=== PATIENT | male | born 1950 | race Caucasian/White ===

== ENCOUNTER 2018-09-05 10:09 | Emergency (ER) | payer MEDICARE ==
[2018-09-05] MEDS ORDERED: Sodium Chloride 0.9% 10 ML Syringe FLUSH PRN (10:17)
[2018-09-05] MEDS ORDERED: Albuterol/Ipratropium 3.0-0.5 MG/3 ML Neb Soln NEB ONE (10:36)
--- NOTE | 2018-09-05 10:40 | EDM.PDOC ---
ED HPI GENERAL MEDICAL PROBLEM - General Chief Complaint: Respiratory Problem Stated Complaint: RESPIRTORY PROBLEM,HARD TO BREATHE [id number] Time Seen by Provider: 09/05/18 10:20 Source of Information: Reports: Patient, RN, RN Notes Reviewed History Limitations: Reports: No Limitations - History of Present Illness INITIAL COMMENTS - FREE TEXT/NARRATIVE: Pt to ER with c/o SOB. He states he has COPD, and uses [facility]. He states he has been out of his medication for 3 months and has not refilled them. States he got "into some dust or something" and has been more SOB the past few days. Patient denies fever, chills, chest pain, N/V/D. States the cough is dry, feels as if there is stuff in his chest that needs to be broken up and coughed out. When he does produce sputum he states it is white. Denies any further health history. Onset: Gradual - Related Data Allergies Allergy/AdvReac Type Severity Reaction Status Date / Time No Known Allergies Allergy Verified 09/05/18 10:19 Past Medical History Respiratory History: Reports: COPD Social & Family History - Tobacco Use Smoking Status *Q: Current Every Day Smoker Years of Tobacco use: 40 Packs/Tins Daily: 1 - Caffeine Use Caffeine Use: Reports: Coffee - Recreational Drug Use Recreational Drug Use: No ED ROS GENERAL - Review of Systems Review Of Systems: ROS reveals no pertinent complaints other than HPI. ED EXAM, GENERAL - Physical Exam Exam: See Below Exam Limited By: No Limitations General Appearance: Alert, WD/WN, Moderate Distress Eye Exam: Bilateral Eye: EOMI, Normal Inspection Ears: Normal External Exam, Hearing Grossly Normal Nose: Normal Inspection Throat/Mouth: Normal Inspection, Normal Voice, No Airway Compromise Head: Atraumatic, Normocephalic Neck: Normal Inspection, Supple, Non-Tender, Full Range of Motion Respiratory/Chest: Decreased Breath Sounds, Crackles, Rhonchi, Wheezing Cardiovascular: Normal Peripheral Pulses, Regular Rate, Rhythm, No Edema, No Gallop, No JVD, No Murmur, No Rub Peripheral Pulses: 2+: Radial (L), Radial (R) GI/Abdominal: Normal Bowel Sounds, Non-Tender, Distended (Male) Exam: Deferred Rectal (Males) Exam: Deferred Back Exam: Normal Inspection, Full Range of Motion, NT Extremities: Normal Inspection, Normal Range of Motion, Non-Tender, Normal Capillary Refill, No Pedal Edema Neurological: Alert, Oriented, CN II-XII Intact, Normal Cognition, Normal Gait, Normal Reflexes, No Motor/Sensory Deficits Psychiatric: Normal Affect, Normal Mood Lymphatic: No Adenopathy Course - Vital Signs Last Recorded V/S: Last Vital Signs Temp 98.2 F 09/05/18 10:15 Pulse 99 09/05/18 10:45 Resp 34 H 09/05/18 10:15 BP 179/84 H 09/05/18 10:15 Pulse Ox 95 09/05/18 10:20 - Orders/Labs/Meds Orders: Active Orders 24 hr Category Date Time Status EKG Documentation Completion [] STAT Care 09/05/18 10:17 Active Peripheral IV Care [] . DIRECTED Care 09/05/18 10:18 Active RT Aerosol Therapy [] ASDIRECTED Care 09/05/18 10:36 Active CULTURE BLOOD [] Stat Lab 09/05/18 10:30 Received CULTURE BLOOD [] Stat Lab 09/05/18 10:35 Results Sodium Chloride 0.9% [Saline Flush] Med 09/05/18 10:17 Active 10 ml FLUSH ASDIRECTED PRN Blood Culture x2 Reflex Set [OM.PC] Stat Oth 09/05/18 10:17 Ordered Peripheral IV Insertion Adult [OM.PC] Stat Oth 09/05/18 10:17 Ordered Medication Orders Sodium Chloride (Saline Flush) 10 ml FLUSH ASDIRECTED PRN PRN Reason: Keep Vein Open Last Admin: 09/05/18 10:25 Dose: 10 ml Labs: Laboratory Tests 09/05/18 09/05/18 09/05/18 Range/Units 10:21 10:21 10:21 WBC 13.6 H (5.0-10.0) 10^3/uL RBC 5.59 (4.6-6.2) 10^6/uL Hgb 17.7 (14.0-18.0) g/dL Hct 51.1 (40.0-54.0) % MCV 91.4 (80-100) fL MCH 31.7 (27.0-34.0) pg MCHC 34.6 (33.0-35.0) g/dL Plt Count 332 (150-450) 10^3/uL Neut % (Auto) 74.6 (42.2-75.2) % Lymph % (Auto) 15.7 L (20.5-50.1) % Dorado % (Auto) 7.5 (2-8) % Eos % (Auto) 2.0 (1.0-3.0) % Baso % (Auto) 0.2 (0.0-1.0) % Sodium 136 (135-145) mmol/L Potassium 4.1 (3.6-5.0) mmol/L Chloride 100 L (101-111) mmol/L Carbon Dioxide 26.0 (21.0-31.0) mmol/L Anion Gap 14.1 BUN 17 (7-18) mg/dL Creatinine 0.8 (0.6-1.3) mg/dL Est Cr Clr Drug Dosing TNP Estimated GFR (MDRD) > 60 BUN/Creatinine Ratio 21.25 Glucose 112 H (74-105) mg/dL Calcium 9.1 (8.4-10.2) mg/dl Total Bilirubin 0.7 (0.2-1.0) mg/dL AST 21 (10-42) IU/L ALT 22 (10-60) IU/L Alkaline Phosphatase 50 (42-121) IU/L Lactate Dehydrogenase 164 (91-180) IU/L Troponin I < 0.02 (0.00-0.02) ng/ml B-Natriuretic Peptide 13 (0-100) pg/ml Total Protein 7.6 (6.7-8.2) g/dl Albumin 4.5 (3.2-5.5) g/dl Globulin 3.1 Albumin/Globulin Ratio 1.45 Urine Color (YELLOW) Urine Appearance (CLEAR) Urine pH (5.0-9.0) Ur Specific [place] (1.005-1.030) Urine Protein (NEGATIVE) Urine Glucose (UA) (NEGATIVE) Urine Ketones (NEGATIVE) Urine Occult Blood (NEGATIVE) Urine Nitrite (NEGATIVE) Urine Bilirubin (NEGATIVE) Urine Urobilinogen (0.2-1.0) mg/dL Ur Leukocyte Esterase (NEGATIVE) 09/05/18 Range/Units 10:25 WBC (5.0-10.0) 10^3/uL RBC (4.6-6.2) 10^6/uL Hgb (14.0-18.0) g/dL Hct (40.0-54.0) % MCV (80-100) fL MCH (27.0-34.0) pg MCHC (33.0-35.0) g/dL Plt Count (150-450) 10^3/uL Neut % (Auto) (42.2-75.2) % Lymph % (Auto) (20.5-50.1) % Dorado % (Auto) (2-8) % Eos % (Auto) (1.0-3.0) % Baso % (Auto) (0.0-1.0) % Sodium (135-145) mmol/L Potassium (3.6-5.0) mmol/L Chloride (101-111) mmol/L Carbon Dioxide (21.0-31.0) mmol/L Anion Gap BUN (7-18) mg/dL Creatinine (0.6-1.3) mg/dL Est Cr Clr Drug Dosing Estimated GFR (MDRD) BUN/Creatinine Ratio Glucose (74-105) mg/dL Calcium (8.4-10.2) mg/dl Total Bilirubin (0.2-1.0) mg/dL AST (10-42) IU/L ALT (10-60) IU/L Alkaline Phosphatase (42-121) IU/L Lactate Dehydrogenase (91-180) IU/L Troponin I (0.00-0.02) ng/ml B-Natriuretic Peptide (0-100) pg/ml Total Protein (6.7-8.2) g/dl Albumin (3.2-5.5) g/dl Globulin Albumin/Globulin Ratio Urine Color Yellow (YELLOW) Urine Appearance Clear (CLEAR) Urine pH 7.0 (5.0-9.0) Ur Specific [place] 1.015 (1.005-1.030) Urine Protein Negative (NEGATIVE) Urine Glucose (UA) Negative (NEGATIVE) Urine Ketones Negative (NEGATIVE) Urine Occult Blood Negative (NEGATIVE) Urine Nitrite Negative (NEGATIVE) Urine Bilirubin Negative (NEGATIVE) Urine Urobilinogen 0.2 (0.2-1.0) mg/dL Ur Leukocyte Esterase Negative (NEGATIVE) Meds: Medications Generic Name Dose Route Start Last Admin Trade Name Freq PRN Reason Stop Dose Admin Sodium Chloride 10 ml 09/05/18 10:17 09/05/18 10:25 Saline Flush FLUSH 10 ml ASDIRECTED PRN Administration Keep Vein Open Discontinued Medications Generic Name Dose Route Start Last Admin Trade Name Ninfa PRN Reason Stop Dose Admin Albuterol/Ipratropium 3 ml 09/05/18 10:36 09/05/18 10:39 Duoneb 3.0-0.5 Mg/3 Ml NEB 09/05/18 10:37 3 ml ONETIME ONE Administration Iopamidol 75 ml 09/05/18 11:01 09/05/18 11:18 Isovue-300 (61%) IVPUSH 09/05/18 11:02 75 ml ONETIME ONE Administration - Radiology Interpretation Free Text/Narrative:: Chest xray: Suspicious appearance left hilum. Recommend CT scan with contrast Chest CT: Discrete (isolated) oval/lobular 12/20 mm parenchymal lung nodule anterior segment left lower lobe i.e. small mass. Pronounced ipsilateral hilar lymphadenopathy that extends into and involves the ipsilateral aortopulmonary window and the subcarinal middle mediastinum. No malignant effusions. Some perbronchial "cuffing" and scattered lung cysts. Generalized air trapping. Otherwise osteopenia, mild kyphosis, multilevel disc disease and hypertrophic spondylosis dorsal spine. No pathologic skeletal lesions, thoracic fracture or dislocation. Gallbladder is inhomogeneously dense (suggest ultrasound). Solitary 12 mm diameter low-attenuation cyst left lobe liver. Adjacent intrahepatic solid 2.0 cm vascular lesion anteriorly left lobe of the liver that may represent cavernous hemangioma but cannot exclude metastatic disease. Ultrasound also recommended. Spleen, pancreas and adrenal glands unremarkable. Conclusion: Probable left lung malignancy. Hepatic lesions (see above) See rad report Departure - Departure Time of Disposition: 12:22 Disposition: Home, Self-Care 01 Condition: Fair Clinical Impression: SOB (shortness of breath) Cancer of left lung Qualifiers: Lung location: lower lobe of lung Qualified Code(s): C34.32 - Malignant neoplasm of lower lobe, left bronchus or lung - Discharge Information *PRESCRIPTION DRUG MONITORING PROGRAM REVIEWED*: No *COPY OF PRESCRIPTION DRUG MONITORING REPORT IN PATIENT ARACELI: No Instructions: Chronic Obstructive Pulmonary Disease Exacerbation, [id number] , Steps to Quit Smoking, [id number], Shortness of Breath, Adult, [id number] Forms: ED Department Discharge Additional Instructions: RX: Albuterol nebulizers, Prednisone, Azithromycin Follow up with Maria G Berrios tomorrow at 11am - My Orders Last 24 Hours: My Active Orders 09/05/18 10:17 EKG Documentation Completion [RC] STAT Sodium Chloride 0.9% [Saline Flush] 10 ml FLUSH ASDIRECTED PRN Blood Culture x2 Reflex Set [OM.PC] Stat Peripheral IV Insertion Adult [OM.PC] Stat 09/05/18 10:18 Peripheral IV Care [RC] . DIRECTED 09/05/18 10:30 CULTURE BLOOD [BC] Stat 09/05/18 10:35 CULTURE BLOOD [BC] Stat 09/05/18 10:36 RT Aerosol Therapy [RC] ASDIRECTED - Assessment/Plan Last 24 Hours: My Active Orders 09/05/18 10:17 EKG Documentation Completion [RC] STAT Sodium Chloride 0.9% [Saline Flush] 10 ml FLUSH ASDIRECTED PRN Blood Culture x2 Reflex Set [OM.PC] Stat Peripheral IV Insertion Adult [OM.PC] Stat 09/05/18 10:18 Peripheral IV Care [RC] . DIRECTED 09/05/18 10:30 CULTURE BLOOD [BC] Stat 09/05/18 10:35 CULTURE BLOOD [BC] Stat 09/05/18 10:36 RT Aerosol Therapy [RC] ASDIRECTED
[2018-09-05 10:50] LABS: ANION GAP 14.1; CHLORIDE,CL 100 mmol/L (101-111); SODIUM,NA 136 mmol/L (135-145)
--- NOTE | 2018-09-05 10:59 | CR ---
Clinical history: 68-year-old male with COPD complaining of increased shortness of breath. No previous films immediately available. Interpretation: Upright AP portable chest film abnormal. Asymmetric masslike fullness (lymphadenopathy?) left hilum with patchy nodular density left cardiophrenic angle (LLL). Normal cardiac silhouette without cephalization of vascular flow, signs of alveolar edema or dependent effusion. Cyst RLL. No other lung mass or focal lobar consolidation. No malignant effusions. Flex thorax unremarkable. No pneumothorax. CONCLUSION: Suspicious appearance left hilum. Recommend CT scan, with contrast.
[2018-09-05] MEDS ORDERED: Iopamidol 612 MG/ML 75 ML Bottle IVPUSH ONE (11:01)
--- NOTE | 2018-09-05 12:10 | CT ---
Clinical history: 68-year-old 203 pound male with COPD, elevated WBC (13,600) and increasing shortness of breath. Scan technique: Volume acquisition of data from the chest (bony thorax, lungs and mediastinum) obtained during intravenous ministration 75 cc nonionic Isovue contrast (3 cc/s via injector) while patient was lying supine on the Siemens multi slice scanner [place], [place]. All data archived in the PACS system for storage, reformatting axial/sagittal/coronal planes and study (lung/mediastinal windows). Interpretation: Abnormal. 1. *Discrete (isolated) oval/lobular 12 x 20 mm parenchymal lung nodule anterior segment left lower lobe i.e. small mass. 2. Pronounced ipsilateral hilar lymphadenopathy that extends into and involves the ipsilateral aortopulmonary window and the subcarinal middle mediastinum. No malignant effusions. 3. Some peribronchial "cuffing" and scattered lung cysts. Generalized air trapping. 4. Normal cardiac silhouette. No pericardial effusion, alveolar edema or dependent pleural effusion. 5. Otherwise osteopenia, mild kyphosis, multilevel disc disease and hypertrophic spondylosis dorsal spine. No pathologic skeletal lesions, thoracic fracture or dislocation. 6. Gallbladder is inhomogeneously dense (suggest ultrasound). Solitary 12 mm diameter low-attenuation cyst left lobe liver. 7. Adjacent intrahepatic solid 2.0 cm vascular lesion anteriorly left lobe of the liver that may represent cavernous hemangioma but cannot exclude metastatic disease. Ultrasound also recommended. Spleen, pancreas and adrenal glands unremarkable. CONCLUSION: Probable left lung malignancy. Hepatic lesions (see above)
== END 2018-09-05 12:30 | disposition home or self-care (01) ==
LOC: DL.ED 10:09
DX: C34.32 Malignant neoplasm of lower lobe, left bronchus or lung (principal); R06.02 Shortness of breath; J44.9 Chronic obstructive pulmonary disease, unspecified; F17.210 Nicotine dependence, cigarettes, uncomplicated
CPT/HCPCS: 36415; 71045; 71260; 80053; 81003; 83615; 83880; 84484; 85025; 87040; 93005; 94640; 99285; Q9967; J7620-GY

== ENCOUNTER → 2018-09-06 | Outpatient (CLI) | payer MEDICARE, OTHER | LOC: DL.CLIN 11:15 | CPT/HCPCS: 99213 ==

== ENCOUNTER 2019-01-11 16:03 | Inpatient (IN) | payer MEDICARE, OTHER ==
[2019-01-11 16:56] LABS: ANION GAP 14.8; CHLORIDE,CL 100 mmol/L (101-111); SODIUM,NA 135 mmol/L (135-145)
[2019-01-11] MEDS: Sodium Chloride 0.9% 10 ML Syringe FLUSH PRN (17:12)
[2019-01-11] MEDS ORDERED: Sodium Chloride 0.9% 1,000 ML IV ONE (17:28)
--- NOTE | 2019-01-11 17:30 | EDM.PDOC ---
ED HPI GENERAL MEDICAL PROBLEM - General Chief Complaint: Fever Stated Complaint: TAKING CHEMO, HIGH FEVER Time Seen by Provider: 01/11/19 17:00 Source of Information: Reports: Patient, RN, RN Notes Reviewed History Limitations: Reports: No Limitations - History of Present Illness INITIAL COMMENTS - FREE TEXT/NARRATIVE: Pt presents to the ER with c/o fever. Patient was diagnosed with lung cancer and has recently spent 14 days at [facility] in [place]. Had chemo and has recently had DVT's in the right leg. States he was started on Xarelto. Pt states today he had a fever of 102 at home. States he called his oncology department and was told to report to the ER as his WBC's may be low and he is susceptible to infection. Upon arrival to the ER temp is 98.7. Patient admits to cough. Denies any recent respiratory illness, N/V/D, or fever before today. States he has had some trouble with constipation in the past few days. Onset: Today - Related Data Allergies Allergy/AdvReac Type Severity Reaction Status Date / Time No Known Allergies Allergy Verified 01/11/19 18:37 Home Meds: Home Meds Fluticasone/Vilanterol [Breo Ellipta 200-25 MCG Inhalation Kit] 2 puff INH Q4HR 11/29/18 [History] Albuterol [Proventil Neb Soln] 1 unit INH Q4HR PRN 01/11/19 [History] Albuterol [Ventolin HFA] 18 gm INH Q4HR 01/11/19 [History] OLANZapine [Olanzapine] 10 mg PO DAILY 01/11/19 [History] Ondansetron [Ondansetron ODT] 8 mg PO Q6HR PRN 01/11/19 [History] Prochlorperazine [Compazine] 10 mg PO QID PRN 01/11/19 [History] Zolpidem Tartrate 5 mg PO DAILY 01/11/19 [History] Past Medical History Respiratory History: Reports: COPD Other Respiratory History: Lung cancer Oncologic (Cancer) History: Reports: Lung Other Oncologic History: currently on chemo - Past Surgical History Respiratory Surgical History: Reports: None Social & Family History - Family History Family Medical History: Noncontributory - Tobacco Use Smoking Status *Q: Former Smoker Used Tobacco, but Quit: Yes Month/Year Tobacco Last Used: 12/04 Second Hand Smoke Exposure: No - Caffeine Use Caffeine Use: Reports: Coffee - Recreational Drug Use Recreational Drug Use: No ED ROS GENERAL - Review of Systems Review Of Systems: ROS reveals no pertinent complaints other than HPI. ED EXAM, GENERAL - Physical Exam Exam: See Below Exam Limited By: No Limitations General Appearance: Alert, WD/WN, No Apparent Distress Eye Exam: Bilateral Eye: EOMI, Normal Inspection Ears: Normal External Exam, Hearing Grossly Normal Nose: Normal Inspection Throat/Mouth: Normal Inspection, Normal Voice, No Airway Compromise Head: Atraumatic, Normocephalic Neck: Normal Inspection, Supple, Non-Tender, Full Range of Motion Respiratory/Chest: No Respiratory Distress, Crackles (throughout) Cardiovascular: Normal Peripheral Pulses, Regular Rate, Rhythm, No Edema, No Gallop, No JVD, No Murmur, No Rub Peripheral Pulses: 2+: Radial (L), Radial (R) GI/Abdominal: Normal Bowel Sounds, Soft, Non-Tender (Male) Exam: Deferred Rectal (Males) Exam: Deferred Back Exam: Normal Inspection, Decreased Range of Motion Extremities: Normal Inspection, Non-Tender, No Pedal Edema, Normal Capillary Refill, Limited Range of Motion Neurological: Alert, Oriented, CN II-XII Intact, Normal Cognition, Normal Gait, Normal Reflexes, No Motor/Sensory Deficits Psychiatric: Normal Affect, Normal Mood, Anxious Skin Exam: Warm, Dry, Intact, Normal Color, No Rash Lymphatic: No Adenopathy Course - Vital Signs Last Recorded V/S: Last Vital Signs Temp 97.6 F 01/12/19 11:00 Pulse 87 01/12/19 11:01 Resp 15 01/12/19 11:00 BP 107/61 01/12/19 11:00 Pulse Ox 94 L 01/12/19 11:01 - Orders/Labs/Meds Orders: Active Orders 24 hr Category Date Time Status EKG 12 Lead [EKG Documentation Completion] [RC] STAT Care 01/11/19 16:25 Active Peripheral IV Care [RC] . DIRECTED Care 01/11/19 16:28 Active CULTURE BLOOD [BC] Stat Lab 01/11/19 16:20 Received CULTURE BLOOD [BC] Stat Lab 01/11/19 16:28 Received Sodium Chloride 0.9% [Saline Flush] Med 01/11/19 16:27 Active 10 ml FLUSH ASDIRECTED PRN Blood Culture x2 Reflex Set [OM.PC] Stat Oth 01/11/19 16:27 Ordered Peripheral IV Insertion Adult [OM.PC] Routine Oth 01/11/19 16:27 Ordered Medication Orders Acetaminophen (Tylenol) 650 mg PO Q4H PRN PRN Reason: Pain (Mild 1-3)/fever Albuterol (Proventil Neb Soln) 2.5 mg INH Q4HR PRN PRN Reason: Shortness of Breath Albuterol/Ipratropium (Duoneb 3.0-0.5 Mg/3 Ml) 3 ml NEB QIDRT [facility] Last Admin: 01/12/19 11:00 Dose: 3 ml Admin: 01/12/19 07:36 Dose: 3 ml Budesonide (Pulmicort) 0.5 mg NEB BIDRT [facility] Last Admin: 01/12/19 07:36 Dose: 0.5 mg Admin: 01/11/19 20:16 Dose: 0.5 mg Docusate Sodium (Colace) 100 mg PO BID PRN PRN Reason: Constipation Enoxaparin Sodium (Lovenox) 80 mg SUBCUT Q12HR [facility] Vancomycin HCl 1.25 gm/ Sodium (Chloride) 250 mls @ 166.667 mls/hr IV Q8H [facility] Last Infusion: 01/12/19 14:46 Dose: 166 mls/hr Admin: 01/12/19 13:01 Dose: 166.667 mls/hr Infusion: 01/12/19 06:36 Dose: 166.667 mls/hr Admin: 01/12/19 05:06 Dose: 166.667 mls/hr Infusion: 01/11/19 22:09 Dose: 166.667 mls/hr Admin: 01/11/19 20:39 Dose: 166.667 mls/hr Piperacillin Sod/Tazobactam (Sod 3.375 gm/ Sodium Chloride) 100 mls @ 200 mls/ hr IV Q6HR [facility] Last Admin: 01/12/19 12:22 Dose: 200 mls/hr Methylprednisolone Sodium Succinate (Solu-Medrol) 20 mg IVPUSH Q12HR [facility] Miscellaneous Information (Remove Patch) 1 ea TRDERM DAILY@0900 [facility] Nicotine (Habitrol) 14 mg TRDERM DAILY [facility] Last Admin: 01/12/19 09:10 Dose: 14 mg Olanzapine (Zyprexa) 10 mg PO DAILY [facility] Last Admin: 01/12/19 09:09 Dose: 10 mg Ondansetron HCl (Zofran Odt) 4 mg PO Q4H PRN PRN Reason: nausea, able to take PO Oxycodone/Acetaminophen (Percocet 325-5 Mg) 1 tab PO Q4H PRN PRN Reason: Pain (moderate 4-6) Last Admin: 01/11/19 22:20 Dose: 1 tab Polyethylene Glycol (Miralax) 17 gm PO DAILY PRN PRN Reason: Constipation Sodium Chloride (Saline Flush) 10 ml FLUSH ASDIRECTED PRN PRN Reason: Keep Vein Open Last Admin: 01/12/19 09:10 Dose: 10 ml Admin: 01/11/19 17:12 Dose: 10 ml Tbo-Filgrastim (Granix) 480 mcg SUBCUT DAILY [facility] Stop: 01/15/19 13:46 Last Admin: 01/12/19 15:09 Dose: 480 mcg Vancomycin HCl (Pharmacy To Dose - Vancomycin) 1 dose .XX ASDIRECTED [facility] Zolpidem Tartrate (Ambien) 5 mg PO BEDTIME [facility] Last Admin: 01/11/19 22:27 Dose: 5 mg Labs: Laboratory Tests 01/11/19 01/11/19 01/11/19 Range/Units 16:20 16:20 16:20 WBC 3.9 L (5.0-10.0) 10^3/uL RBC 4.24 L (4.6-6.2) 10^6/uL Hgb 12.8 L (14.0-18.0) g/dL Hct 37.7 L (40.0-54.0) % MCV 88.9 (80-100) fL MCH 30.2 (27.0-34.0) pg MCHC 34.0 (33.0-35.0) g/dL Plt Count 190 D (150-450) 10^3/uL Neut % (Auto) 18.2 L (42.2-75.2) % Lymph % (Auto) 58.4 H (20.5-50.1) % [place] % (Auto) 22.6 H (2-8) % Eos % (Auto) 0.3 L (1.0-3.0) % Baso % (Auto) 0.5 (0.0-1.0) % Add Manual Diff Yes Neutrophils % (Manual) 20 L (42-75) % Band Neutrophils % 1 % Lymphocytes % (Manual) 62 H (20-50) % Monocytes % (Manual) 17 H (2-8) % Polychromasia D-Dimer, Quantitative 1580 H (0-400) ng/mL Sodium 135 (135-145) mmol/L Potassium 3.8 (3.6-5.0) mmol/L Chloride 100 L (101-111) mmol/L Carbon Dioxide 24.0 (21.0-31.0) mmol/L Anion Gap 14.8 BUN 13 (7-18) mg/dL Creatinine 0.8 (0.6-1.3) mg/dL Est Cr Clr Drug Dosing TNP Estimated GFR (MDRD) > 60 BUN/Creatinine Ratio 16.25 Glucose 126 H (74-105) mg/dL Lactic Acid (0.5-2.2) mmol/L Calcium 8.7 (8.4-10.2) mg/dl Total Bilirubin 0.8 (0.2-1.0) mg/dL AST 22 (10-42) IU/L ALT 29 (10-60) IU/L Alkaline Phosphatase 102 (42-121) IU/L Troponin I 0.02 (0.00-0.02) ng/ml Total Protein 6.7 (6.7-8.2) g/dl Albumin 3.3 (3.2-5.5) g/dl Globulin 3.4 Albumin/Globulin Ratio 0.97 09/26/19 Range/Units 16:20 WBC (5.0-10.0) 10^3/uL RBC (4.6-6.2) 10^6/uL Hgb (14.0-18.0) g/dL Hct (40.0-54.0) % MCV (80-100) fL MCH (27.0-34.0) pg MCHC (33.0-35.0) g/dL Plt Count (150-450) 10^3/uL Neut % (Auto) (42.2-75.2) % Lymph % (Auto) (20.5-50.1) % [place] % (Auto) (2-8) % Eos % (Auto) (1.0-3.0) % Baso % (Auto) (0.0-1.0) % Add Manual Diff Neutrophils % (Manual) (42-75) % Band Neutrophils % % Lymphocytes % (Manual) (20-50) % Monocytes % (Manual) (2-8) % Polychromasia D-Dimer, Quantitative (0-400) ng/mL Sodium (135-145) mmol/L Potassium (3.6-5.0) mmol/L Chloride (101-111) mmol/L Carbon Dioxide (21.0-31.0) mmol/L Anion Gap BUN (7-18) mg/dL Creatinine (0.6-1.3) mg/dL Est Cr Clr Drug Dosing Estimated GFR (MDRD) BUN/Creatinine Ratio Glucose (74-105) mg/dL Lactic Acid 1.8 (0.5-2.2) mmol/L Calcium (8.4-10.2) mg/dl Total Bilirubin (0.2-1.0) mg/dL AST (10-42) IU/L ALT (10-60) IU/L Alkaline Phosphatase (42-121) IU/L Troponin I (0.00-0.02) ng/ml Total Protein (6.7-8.2) g/dl Albumin (3.2-5.5) g/dl Globulin Albumin/Globulin Ratio Meds: Medications Generic Name Dose Route Start Last Admin Trade Name Freq PRN Reason Stop Dose Admin Acetaminophen 650 mg 01/11/19 19:36 Tylenol PO Q4H PRN Pain (Mild 1-3)/fever Albuterol 2.5 mg 01/11/19 19:39 Proventil Neb Soln INH Q4HR PRN Shortness of Breath Albuterol/Ipratropium 3 ml 01/12/19 07:00 01/12/19 11:00 Duoneb 3.0-0.5 Mg/3 Ml NEB 3 ml QIDRT [facility] Administration Budesonide 0.5 mg 01/11/19 19:40 01/12/19 07:36 Pulmicort NEB 0.5 mg BIDRT [facility] Administration Docusate Sodium 100 mg 01/11/19 19:36 Colace PO BID PRN Constipation Enoxaparin Sodium 80 mg 01/12/19 21:00 Lovenox SUBCUT Q12HR [facility] Vancomycin HCl 1.25 gm/ Sodium 250 mls @ 166.667 mls/hr 01/11/19 21:00 14:46 Chloride IV Infused Q8H [facility] Infusion Piperacillin Sod/Tazobactam 100 mls @ 200 mls/hr 01/12/19 12:00 01/12/19 12: 22 Sod 3.375 gm/ Sodium Chloride IV 200 mls/hr Q6HR [facility] Administration Methylprednisolone Sodium Succinate 20 mg 01/12/19 21:00 Solu-Medrol IVPUSH Q12HR [facility] Miscellaneous Information 1 ea 01/13/19 09:00 Remove Patch TRDERM DAILY@0900 [facility] Nicotine 14 mg 01/12/19 09:00 01/12/19 09:10 Habitrol TRDERM 14 mg DAILY [facility] Administration Olanzapine 10 mg 01/12/19 09:00 01/12/19 09:09 Zyprexa PO 10 mg DAILY [facility] Administration Ondansetron HCl 4 mg 01/11/19 19:36 Zofran Odt PO Q4H PRN nausea, able to take PO Oxycodone/Acetaminophen 1 tab 01/11/19 19:36 01/11/19 22:20 Percocet 325-5 Mg PO 1 tab Q4H PRN Administration Pain (moderate 4-6) Polyethylene Glycol 17 gm 01/11/19 19:36 Miralax PO DAILY PRN Constipation Sodium Chloride 10 ml 01/11/19 16:27 01/12/19 09:10 Saline Flush FLUSH 10 ml ASDIRECTED PRN Administration Keep Vein Open Tbo-Filgrastim 480 mcg 01/12/19 13:45 01/12/19 15:09 Granix SUBCUT 01/15/19 13:46 480 mcg DAILY [facility] Administration Vancomycin HCl 1 dose 01/11/19 19:45 Pharmacy To Dose - Vancomycin .XX ASDIRECTED [facility] Zolpidem Tartrate 5 mg 01/11/19 22:30 01/11/19 22:27 Ambien PO 5 mg BEDTIME [facility] Administration Discontinued Medications Generic Name Dose Route Start Last Admin Trade Name Freq PRN Reason Stop Dose Admin Albuterol 0 gm 01/11/19 22:00 Proventil Hfa INH Q4HR [facility] Albuterol/Ipratropium 3 ml 01/11/19 21:00 01/11/19 20:32 Duoneb 3.0-0.5 Mg/3 Ml NEB 3 ml QID [facility] Administration Enoxaparin Sodium 40 mg 01/12/19 09:00 01/12/19 09:09 Lovenox SUBCUT 40 mg DAILY [facility] Administration Sodium Chloride 1,000 mls @ 999 mls/hr 01/11/19 17:28 01/11/19 17:35 Normal Saline IV 01/11/19 18:28 999 mls/hr .BOLUS ONE Administration Piperacillin Sod/Tazobactam 100 mls @ 200 mls/hr 01/11/19 17:50 01/11/19 18: 00 Sod 3.375 gm/ Sodium Chloride IV 01/11/19 18:19 200 mls/hr ONETIME ONE Administration Piperacillin Sod/Tazobactam 100 mls @ 200 mls/hr 01/12/19 05:00 01/12/19 04: 35 Sod 3.375 gm/ Sodium Chloride IV 200 mls/hr Q6H [facility] Administration Methylprednisolone Sodium Succinate 40 mg 01/11/19 19:45 01/12/19 11:47 Solu-Medrol IVPUSH 40 mg Q8H [facility] Administration Rivaroxaban 15 mg 01/12/19 11:30 01/12/19 13:27 Xarelto PO Not Given BID [facility] Vancomycin HCl Confirm 01/11/19 20:27 01/11/19 20:41 Vancomycin Administered 01/11/19 20:28 Not Given Dose 500 mg .ROUTE .STK-MED ONE Vancomycin HCl Confirm 01/11/19 20:27 01/11/19 20:41 Vancomycin Administered 01/11/19 20:28 Not Given Dose 750 mg .ROUTE .STK-MED ONE Vancomycin HCl Confirm 01/12/19 04:00 01/12/19 04:36 Vancomycin Administered 01/12/19 04:01 Not Given Dose 500 mg .ROUTE .STK-MED ONE Vancomycin HCl Confirm 01/12/19 04:00 01/12/19 04:36 Vancomycin Administered 01/12/19 04:01 Not Given Dose 1 gm .ROUTE .STK-MED ONE Zolpidem Tartrate 5 mg 01/12/19 21:00 Ambien PO BEDTIME [facility] - Radiology Interpretation Free Text/Narrative:: Chest xray: FINDINGS: Lungs: Prior left upper lobe atelectasis has resolved. Pleural space: Stable moderate left pleural effusion Heart/Mediastinum: Persistent large left hilar mass. Bones/joints: Unremarkable. IMPRESSION: 1. Improvement in prior left upper lobe atelectasis 2. Persistent left perihilar mass and moderate left pleural effusion Thank you for allowing us to participate in the care of your patient. Dictated and Authenticated by: Kashif Hurtado MD 01/11/2019 5:22 PM Central Time ([place] & [place]) See Rad rep Departure - Departure Time of Disposition: 18:10 Disposition: Admitted As Inpatient 67 Condition: Fair Clinical Impression: Fever of unknown origin, Dehydration Lung cancer Qualifiers: Laterality: left Lung location: unspecified part of lung Qualified Code(s): C34.92 - Malignant neoplasm of unspecified part of left bronchus or lung - Discharge Information *PRESCRIPTION DRUG MONITORING PROGRAM REVIEWED*: No *COPY OF PRESCRIPTION DRUG MONITORING REPORT IN PATIENT ARACELI: No - My Orders Last 24 Hours: My Active Orders 01/11/19 16:20 CULTURE BLOOD [BC] Stat 01/11/19 16:25 EKG 12 Lead [EKG Documentation Completion] [RC] STAT 01/11/19 16:27 Sodium Chloride 0.9% [Saline Flush] 10 ml FLUSH ASDIRECTED PRN Blood Culture x2 Reflex Set [OM.PC] Stat Peripheral IV Insertion Adult [OM.PC] Routine 01/11/19 16:28 Peripheral IV Care [RC] . DIRECTED CULTURE BLOOD [BC] Stat - Assessment/Plan Last 24 Hours: My Active Orders 01/11/19 16:20 CULTURE BLOOD [BC] Stat 01/11/19 16:25 EKG 12 Lead [EKG Documentation Completion] [RC] STAT 01/11/19 16:27 Sodium Chloride 0.9% [Saline Flush] 10 ml FLUSH ASDIRECTED PRN Blood Culture x2 Reflex Set [OM.PC] Stat Peripheral IV Insertion Adult [OM.PC] Routine 01/11/19 16:28 Peripheral IV Care [RC] . DIRECTED CULTURE BLOOD [BC] Stat
[2019-01-11] MEDS ORDERED: Piperacillin/Tazobactam 3.375 GM in Sodium Chloride 0.9% 100 ML IV ONE (17:50)
[2019-01-11] MEDS ORDERED: Ondansetron 4 MG Tab.DIS PO PRN (19:36)
[2019-01-11] MEDS ORDERED: Acetaminophen 325 MG Tab PO PRN (19:36)
[2019-01-11] MEDS ORDERED: Docusate Sodium 100 MG Cap PO PRN (19:36)
[2019-01-11] MEDS ORDERED: Albuterol 0.083% 2.5 MG/3 ML Neb Soln INH PRN (19:39)
[2019-01-11] MEDS: methylPREDNISolone Sodium Succinate 40 MG/1 ML SDV IVPUSH SCH (20:11)
[2019-01-11] MEDS: Budesonide 0.5 MG/2 ML Neb Susp NEB SCH (20:16)
[2019-01-11] MEDS ORDERED: Vancomycin 500 MG SDV ONE (20:27)
[2019-01-11] MEDS ORDERED: Vancomycin 750 MG SDV ONE (20:27)
[2019-01-11] MEDS ORDERED: Albuterol/Ipratropium 3.0-0.5 MG/3 ML Neb Soln NEB SCH (21:00)
[2019-01-11] MEDS ORDERED: Albuterol 6.7 GM Inhaler INH SCH (22:00)
[2019-01-11] MEDS: Acetaminophen/oxyCODONE 325-5 MG Tab PO PRN (22:20)
[2019-01-11] MEDS: Zolpidem 5 MG Tab PO SCH (22:27)
--- NOTE | 2019-01-12 01:43 | HP ---
CHIEF COMPLAINT: Fevers and chills. HISTORY OF PRESENTING ILLNESS: Mr. Luca Mcclure is a 68-year-old male with medical history significant for chronic obstructive pulmonary disease, chronic tobacco use, recently diagnosed with small cell lung cancer and had a very complicated course at [facility] from November 26 to December 17, where he was admitted to the Intensive Care Unit. He was noted to be in acute respiratory failure with underlying mass and collapse of the lung and pleural effusion requiring chest tube placement and got extubated and got discharged on December 17. After coming home, he has been doing well, but in the last 3 days, the patient has been having some fevers, so came to the ER and admitted to the hospital for possible pneumonia. At this time, the patient claims that he has been sick for the last 3 days mainly having fevers. He denies any chest pain. No shortness of breath. No abdominal pain. No nausea. No vomiting. No diarrhea. Associated with cough with phlegm, which is whitish to greenish in color. Denies any chest pains. No headaches, no changes in the vision. The patient denied any history of chest pains on exertion, but has mild dyspnea on exertion. No history of orthopnea or paroxysmal nocturnal dyspnea. The patient denied any history of hematemesis, hematochezia, or melenic stools. Normal bowel and bladder habits otherwise. REVIEW OF SYSTEMS: A complete review of systems including skin, ear, nose, and throat, cardiovascular system, respiratory system, gastrointestinal system, genitourinary system, hematology, oncology, neurology, allergy, immunology, constitutional were all evaluated and were negative except for the above-said notes. PAST MEDICAL HISTORY: Significant for chronic obstructive pulmonary disease, chronic tobacco use. PAST SURGICAL HISTORY: None as per the patient. FAMILY HISTORY: Significant for colon cancer in his brother. ALLERGIES: No known drug allergies. SOCIAL HISTORY: The patient has longstanding history of smoking, but quit smoking few weeks back as per the patient. No history of alcohol intake. HOME MEDICATIONS: 1. Ondansetron 8 mg oral q.6 hours as needed. 2. Albuterol inhalation q.4 hours as needed. 3. Zolpidem 5 mg daily. 4. Olanzapine 10 mg daily. 5. Albuterol 18 gm inhalation q.4 hours. PHYSICAL EXAMINATION: VITAL SIGNS: Temperature of 98.6, pulse of 106, blood pressure 116/51, respiratory rate of 20, saturating at 97% on room air. GENERAL APPEARANCE: The patient is well oriented to time, place, and person. Follows commands spontaneously. CARDIOVASCULAR: S1, S2 heard with normal intensity. No gallops. RESPIRATORY: Clear to auscultation bilaterally except for mild crepitations at the bases bilaterally. Decreased breath sounds on the left lower lobe. Dull to percussion to the left lower lobe. Mild wheeze noted. ABDOMEN: Soft. Bowel sounds positive. Nontender. No rigidity. No guarding. No rebound tenderness. EXTREMITIES: No edema, bilateral lower extremities. LABORATORY DATA: WBC 3.9, hemoglobin 12.8, hematocrit 37.7, platelet count 190. Sodium 135, potassium 3.8, chloride 100, BUN 13, creatinine 0.8, glucose 126, AST 22, ALT 29, lactic acid 1.8. ASSESSMENT: 1. Possible pneumonia. 2. Recent diagnosis of small cell lung cancer. 3. Malignant pleural effusion on the left side. 4. Chronic obstructive pulmonary disease with possible acute exacerbation. PLAN: 1. Pneumonia. The patient is complaining of fevers and chills. Noted to have cough with sputum. The patient recently got intubated for acute respiratory failure. One has to think of possible gram-negative pneumonia, possible nosocomial pneumonia. The patient will be admitted. We will start him on broad-spectrum antibiotic including Zosyn and vancomycin. We will obtain sputum cultures, blood cultures, urine cultures, and titrate the antibiotics once we have the culture reports available. 2. Neutropenia. The patient is noted to have chemotherapy-induced neutropenia. We will get a CBC with differential in the a.m. 3. Chronic obstructive pulmonary disease with possible acute exacerbation. The patient noted to have bilateral wheeze. We will have him on nebulizer treatment including DuoNeb, Pulmicort nebulizer. We will encourage the patient to use incentive spirometer and flutter valve for better pulmonary toileting. 4. Pleural effusion. The patient noted to have left-sided pleural effusion. This has been persistent from his previous admission also, most probably malignant pleural effusion. We will closely follow. We will get a chest x- ray. If the patient becomes symptomatic, then he might need a chest tube placement, but currently remains stable. 5. Deep venous thrombosis prophylaxis. We will have him on Lovenox for deep venous thrombosis prophylaxis. 6. Code status: The patient wants to be full code. 7. Discussed with Christine, ER physician, regarding the plan of care. Discussed with family members at bedside. Reviewed the labs and medications. Reviewed the charts from [facility]. [facility] /[id number]
[2019-01-12] MEDS: methylPREDNISolone Sodium Succinate 40 MG/1 ML SDV IVPUSH SCH ×3 (03:37→21:08)
[2019-01-12] MEDS ORDERED: Vancomycin 1 GM SDV ONE (04:00)
[2019-01-12] MEDS ORDERED: Vancomycin 500 MG SDV ONE (04:00)
[2019-01-12] MEDS ORDERED: Piperacillin/Tazobactam 3.375 GM in Sodium Chloride 0.9% 100 ML IV SCH (05:00)
[2019-01-12 06:54] LABS: ANION GAP 14.4; CHLORIDE,CL 100 mmol/L (101-111); SODIUM,NA 136 mmol/L (135-145)
[2019-01-12] MEDS: Albuterol/Ipratropium 3.0-0.5 MG/3 ML Neb Soln NEB SCH ×4 (07:36→21:18)
[2019-01-12] MEDS: Budesonide 0.5 MG/2 ML Neb Susp NEB SCH ×2 (07:36→17:02)
[2019-01-12] MEDS ORDERED: Enoxaparin 40 MG/0.4 ML Syringe SUBCUT SCH (09:00)
[2019-01-12] MEDS: OLANZapine 5 MG Tab PO SCH (09:09)
[2019-01-12] MEDS: Nicotine 14 MG/24 Hr Patch TRDERM SCH (09:10)
[2019-01-12] MEDS: Sodium Chloride 0.9% 10 ML Syringe FLUSH PRN ×3 (09:10→23:53)
[2019-01-12] MEDS ORDERED: Rivaroxaban 10 MG Tab PO SCH (11:30)
[2019-01-12] MEDS: Piperacillin/Tazobactam 3.375 GM in Sodium Chloride 0.9% 100 ML IV SCH ×3 (12:22→23:54)
--- NOTE | 2019-01-12 13:10 | PN ---
DATE: 01/12/2019 SUBJECTIVE: Mr. Ren Salazar is a 68-year-old male with a medical history significant for small cell lung cancer, currently undergoing chemotherapy, chronic obstructive pulmonary disease, malignant pleural effusion, admitted to the hospital with febrile neutropenia. For the last 24 hours, the patient remains afebrile. He denied any chest pain. No shortness of breath. No abdominal pain. No nausea. No vomiting. No diarrhea. REVIEW OF SYSTEMS: Cardiovascular, respiratory, gastrointestinal, neurology, constitutional were all evaluated. PHYSICAL EXAMINATION: Vital Signs: Temperature of 97.3, pulse of 87, blood pressure 118/71, respiratory rate of 17, saturating at 94%. General Appearance: The patient is well oriented to time, place, and person. Follows commands spontaneously. Cardiovascular System: S1, S2 heard with normal intensity. No gallops. Respiratory System: Clear to auscultation bilaterally except for decreased breath sounds on the left side, dull to percussion on the left lower lobe. No wheeze. Abdomen: Soft. Bowel sounds positive. Nontender. No rigidity. Extremities: No edema in bilateral lower extremities. MEDICATIONS: Reviewed. 1. Tylenol 650 every 4 hours as needed for pain and fever. 2. DuoNeb 3 mL q.4 times a day. 3. Pulmicort 0.5 mg twice a day. 4. Methylprednisolone 40 mg IV q.8 hourly. 5. Nicotine transdermal patch 14 mg daily. 6. Percocet 5/325 mg every 4 hours as needed for pain. 7. Zosyn, Pharmacy to dose. 8. Vancomycin, Pharmacy to dose. 9. Xarelto 15 mg twice a day. 10.Ambien 5 mg at bedtime. LABORATORY DATA: WBC 2.3, hemoglobin 11.1, hematocrit 33, platelet count 201. Sodium 136, potassium 4.4, chloride 100, BUN 15, creatinine 0.8, glucose 146. Microbiology: Sputum culture shows moderate gram-positive cocci in pairs and few gram-negative rods with 10-25 wbc's. ASSESSMENT: 1. Possible pneumonia. 2. Febrile neutropenia. 3. Chemotherapy-induced neutropenia. 4. Small cell lung cancer. 5. Chronic obstructive pulmonary disease. 6. Malignant pleural effusion. PLAN: 1. Pneumonia. The patient presented with fevers, chills, and cough with sputum. If sputum culture is growing some gram-positive cocci and gram- negative coretta, we will closely follow with the culture report, follow with blood cultures. The patient is started empirically on broad-spectrum antibiotics for possible gram-negative pneumonia. The patient was recently in the hospital, intubated, so one has to think of possible nosocomial pneumonia. We will continue the broad-spectrum antibiotics for now. He remains afebrile for now. 2. Febrile neutropenia. The patient was admitted with fevers and noted to have neutropenia. We will try to give some Neupogen 480 mcg x3 days for his neutropenia. We will recheck a CBC with differential in the a.m. Closely follow. 3. Small cell lung cancer. The patient newly diagnosed with small cell lung cancer. He has received chemotherapy. He is scheduled for chemotherapy next week, so we will closely follow. Discussed with [facility]. 4. Chronic obstructive pulmonary disease. The patient was noted to have acute exacerbation at the time of admission. Currently stable. No wheeze noted. We will taper down the steroids. Continue with DuoNeb and Pulmicort nebulizer. 5. Acute deep venous thrombosis. The patient was recently diagnosed with acute deep venous thrombosis. He was on Xarelto. he is scheduled for a Port placement, its currently on hold. will start him on Therapeutic Lovenox, given the recent diagnosis of DVT. [facility] /[id number]
[2019-01-12] MEDS ORDERED: Zolpidem 5 MG Tab PO SCH (21:00)
[2019-01-12] MEDS: Enoxaparin 80 MG/0.8 ML Syringe SUBCUT SCH (21:17)
[2019-01-12] MEDS: Zolpidem 5 MG Tab PO SCH (21:18)
[2019-01-12] MEDS: Acetaminophen/oxyCODONE 325-5 MG Tab PO PRN (21:35)
[2019-01-13] MEDS: Sodium Chloride 0.9% 10 ML Syringe FLUSH PRN ×2 (04:41→06:15)
[2019-01-13] MEDS: Piperacillin/Tazobactam 3.375 GM in Sodium Chloride 0.9% 100 ML IV SCH ×4 (06:17→23:56)
[2019-01-13 06:55] LABS: CHLORIDE,CL 104 mmol/L (101-111); SODIUM,NA 139 mmol/L (135-145)
[2019-01-13] MEDS: Budesonide 0.5 MG/2 ML Neb Susp NEB SCH ×2 (07:34→17:44)
[2019-01-13] MEDS: Albuterol/Ipratropium 3.0-0.5 MG/3 ML Neb Soln NEB SCH ×4 (07:34→21:25)
[2019-01-13] MEDS: Nicotine 14 MG/24 Hr Patch TRDERM SCH (08:39)
[2019-01-13] MEDS: Polyethylene Glycol 3350 Powder 17 GM Packet PO PRN (08:39)
[2019-01-13] MEDS: OLANZapine 5 MG Tab PO SCH (08:40)
[2019-01-13] MEDS: Enoxaparin 80 MG/0.8 ML Syringe SUBCUT SCH ×2 (08:40→21:26)
[2019-01-13] MEDS: methylPREDNISolone Sodium Succinate 40 MG/1 ML SDV IVPUSH SCH (08:40)
[2019-01-13] MEDS: REMOVE NICOTINE TRDERM SCH (08:41)
--- NOTE | 2019-01-13 13:40 | PN ---
DATE: 01/13/2019 SUBJECTIVE: Mr. Ren Salazar is a 68-year-old male with medical history significant for newly diagnosed small cell lung cancer, status post chemotherapy; chronic obstructive pulmonary disease; admitted with fevers and chills, and noted to have febrile neutropenia. For the last 24 hours, the patient remained afebrile. He was continued on IV Zosyn, vancomycin. He denies any chest pains. No shortness of breath. No abdominal pain. No nausea. No vomiting. Continues to have cough with sputum, which is whitish in color at this time. Complains of having insomnia where he is unable to sleep. REVIEW OF SYSTEMS: Cardiovascular, respiratory, gastrointestinal, neurology, constitutional were all evaluated. PHYSICAL EXAMINATION: Vital Signs: Temperature of 98.3, pulse of 89, blood pressure 114/78, respiratory rate of 20, saturating at 95% on room air. General Appearance: The patient is well oriented to time, place, and person. Follows commands spontaneously. Cardiovascular System: S1, S2 heard with normal intensity. No gallops. Respiratory: Clear to auscultation bilaterally except for decreased breath sounds on the left lower lobe. Dull to percussion on the left lower lobe. Abdomen: Soft. Bowel sounds positive. Nontender. No rigidity. Extremities: No edema in bilateral lower extremities. MEDICATIONS: Reviewed. Continue with Tylenol 650 every 4 hours as needed for pain and fever, DuoNeb 3 mL nebulizer 4 times a day, Pulmicort 0.5 mg nebulizer twice a day, Lovenox 80 mg subcu q.12 hourly, Percocet 5/325 mg every 4 hours as needed for pain, Granix 480 mcg subcu daily, Zosyn pharmacy to dose, Ambien 5 mg at bedtime. LABORATORY DATA: WBC 10.7, hemoglobin 10.2, hematocrit 30.8, platelet count 318. Sodium 139, potassium 4, chloride 104, bicarb 26, BUN 16, creatinine 0.8. ASSESSMENT: 1. Pneumonia. 2. Febrile neutropenia. 3. Chemotherapy-induced neutropenia and anemia, improved. 4. Small cell lung cancer. 5. Ongoing chemotherapy. 6. Chronic obstructive pulmonary disease. 7. Malignant pleural effusion. PLAN: 1. Pneumonia. The patient was admitted with febrile neutropenia. X-ray suggestive of possible pneumonia. Started on broad-spectrum antibiotic, Zosyn, vancomycin. So far, his cultures remain negative. Discontinue vancomycin. Continue with Zosyn. Follow with sputum culture report. 2. Febrile neutropenia, improved. The patient remains afebrile. 3. Chemotherapy-induced neutropenia and anemia. The patient received Granix, after which his neutropenia seems to be improved. We will give 1 more dose of Granix today. Did check a CBC in a.m. 4. Small cell lung cancer. The patient was recently diagnosed and [facility] He has an upcoming appointment for possible chemotherapy. 5. Chronic obstructive pulmonary disease, remains stable. No wheeze noted on the lung exam today. Continue with the nebulizer treatment. We will taper down the steroids. Discontinue IV methylprednisone. 6. Malignant pleural effusion. Chronic in nature. The patient has mild pleural effusion on the left side as evident on the chest x-ray. The patient remains asymptomatic. No indication for thoracocentesis at this time. 7. Deep vein thrombosis prophylaxis. The patient was noted to have acute deep venous thrombosis diagnosed recently. He is scheduled for receiving a port, so we had to hold off his Xarelto. Continue with therapeutic dose of Lovenox for now. [facility] /[id number]
[2019-01-13] MEDS ORDERED: Melatonin 3 MG Tab PO SCH (21:00)
[2019-01-13] MEDS: Zolpidem 5 MG Tab PO SCH (21:28)
[2019-01-14] MEDS: Acetaminophen/oxyCODONE 325-5 MG Tab PO PRN (01:08)
[2019-01-14] MEDS: Piperacillin/Tazobactam 3.375 GM in Sodium Chloride 0.9% 100 ML IV SCH ×2 (05:46→11:48)
[2019-01-14] MEDS: Sodium Chloride 0.9% 10 ML Syringe FLUSH PRN (05:46)
[2019-01-14] MEDS: Budesonide 0.5 MG/2 ML Neb Susp NEB SCH (07:27)
[2019-01-14] MEDS: Albuterol/Ipratropium 3.0-0.5 MG/3 ML Neb Soln NEB SCH ×2 (07:27→11:55)
[2019-01-14] MEDS: Enoxaparin 80 MG/0.8 ML Syringe SUBCUT SCH (08:54)
[2019-01-14] MEDS: Nicotine 14 MG/24 Hr Patch TRDERM SCH (08:54)
[2019-01-14] MEDS: OLANZapine 5 MG Tab PO SCH (08:54)
[2019-01-14] MEDS: REMOVE NICOTINE TRDERM SCH (08:55)
[2019-01-14] MEDS: Polyethylene Glycol 3350 Powder 17 GM Packet PO PRN (08:55)
--- NOTE | 2019-01-14 14:52 | DISCH ---
ADMITTING DIAGNOSES: 1. Febrile neutropenia. 2. Pneumonia. 3. Possible sepsis. 4. Small cell lung cancer. DISCHARGE DIAGNOSES: 1. Pneumonia, resolved with IV antibiotics. So far cultures remained negative. 2. Sepsis, resolved. 3. Febrile neutropenia, resolved. The patient did get Neupogen on this admission. 4. Chemotherapy-induced neutropenia and anemia, improved. 5. Chronic obstructive pulmonary disease with possible exacerbation. 6. Pleural effusion on the left, possible malignant. HISTORY OF PRESENTING ILLNESS: Mr. Ren Salazar is a 68-year-old male with a medical history significant for newly-diagnosed small cell lung cancer, receiving chemotherapy at [facility], chronic obstructive pulmonary disease, admitted with fevers and chills and noted to have febrile neutropenia. The patient was also noted to have possible pneumonia. The patient was started on broad-spectrum antibiotics with Zosyn and vancomycin given his recent hospitalization at [facility]. The patient responded well to the treatment. He had worsened neutropenia on this admission, so he did receive Neupogen, after which his WBC count has improved and his neutrophil count improved. He was noted to have acute COPD exacerbation requiring nebulizers with DuoNeb and Pulmicort nebulizer and IV methylprednisone, and we gradually tapered down the steroid on this admission. He responded well to the treatment. His anemia and neutropenia got improved with Neupogen. The patient is advised to follow with his Cancer Center as scheduled. He is discharged home in stable condition. He will follow with his primary care physician in the next 1 week of time. DISCHARGE MEDICATIONS: 1. Albuterol 1 puff inhalation every 4 hours as needed. 2. Augmentin 500/125 mg 1 tablet twice a day for 7 days. 3. Fluticasone two puffs inhalation every 4 hours. 4. Melatonin 6 mg at bedtime as needed. 5. Olanzapine 10 mg daily. 6. Ondansetron 8 mg every 6 hours as needed for nausea. 7. Compazine 10 mg 4 times a day as needed for nausea and vomiting. 8. Ambien 5 mg at night as needed. PHYSICAL EXAMINATION: Vital Signs: On the day of discharge, temperature of 98.3, pulse of 105, blood pressure 134/70, respiratory rate of 20, saturating at 92%. General Appearance: Patient is well oriented to time, place, and person. Follows commands spontaneously. Cardiovascular System: S1, S2 heard with normal intensity. No gallops. Respiratory System: Clear to auscultation bilaterally except for mild crepitations at the left lower lobe. Dull to percussion of the left lower lobe, no wheeze. Abdomen: Soft. Bowel sounds positive. Nontender. No rigidity. Extremities: No edema, bilateral lower extremities. CONDITION ON ADMISSION: Poor. CONDITION ON DISCHARGE: Stable. DISPOSITION: Discharged to home. DIET: Regular diet as tolerated. FOLLOWUP: Follow up with primary care physician in the next 1 week of time and to follow with Cancer Center as scheduled. Spent over 35 minutes of time in evaluating and treating this patient and making discharge plans. [facility] /[id number]
== END 2019-01-14 13:05 | disposition home or self-care (01) | DRG 871 ==
LOC: DL.ED 16:03 → DL.MS 18:08
PROVIDERS: ADMIT Internal Medicine; ATTEND Internal Medicine
DX: A41.9 Sepsis, unspecified organism (principal); R50.9 Fever, unspecified; E86.0 Dehydration; J18.9 Pneumonia, unspecified organism; Z92.21 Personal history of antineoplastic chemotherapy; R05 Cough; J44.9 Chronic obstructive pulmonary disease, unspecified; J44.1 Chronic obstructive pulmonary disease with (acute) exacerbation; J91.0 Malignant pleural effusion; C34.92 Malignant neoplasm of unspecified part of left bronchus or lung; Z86.718 Personal history of other venous thrombosis and embolism; J44.0 Chronic obstructive pulmonary disease with (acute) lower respiratory infection; I82.409 Acute embolism and thrombosis of unspecified deep veins of unspecified lower extremity; D70.1 Agranulocytosis secondary to cancer chemotherapy; T45.1X5A Adverse effect of antineoplastic and immunosuppressive drugs, initial encounter; G47.00 Insomnia, unspecified; R50.81 Fever presenting with conditions classified elsewhere; D64.81 Anemia due to antineoplastic chemotherapy; Z79.01 Long term (current) use of anticoagulants; Z87.891 Personal history of nicotine dependence; Z79.899 Other long term (current) drug therapy
CPT/HCPCS: 36415; 71045; 80053; 83605; 84484; 85025; 85379; 87040 ×2; 93005; 96365; 99285; J2543; J7030; J7050; 80048; 80202; 81003; 87070; 87205; 94010; 94640; 94667; 99284; A9270-GY; J1447; J1650; J2920; J3370; J7620-GY

== ENCOUNTER 2020-06-16 18:12 | Emergency (ER) | payer MEDICARE ==
--- NOTE | 2020-06-16 18:16 | EDM.PDOC ---
<Kalyan Richmond - Last Filed: 06/16/20 18:57> ED HPI GENERAL MEDICAL PROBLEM - General Chief Complaint: General Stated Complaint: AMBULANCE Time Seen by Provider: 06/16/20 18:16 Source of Information: Reports: Patient, EMS, Old Records, RN, RN Notes Reviewed History Limitations: Reports: No Limitations - History of Present Illness INITIAL COMMENTS - FREE TEXT/NARRATIVE: Pt arrives from home by ambulance with report of five days duration of nausea, vomiting, and diarrhea. Pt has Hx of stage four lung cancer about 3 years ago which improved with chemo, but has required ongoing chemo treatment. Pt had the last chemo tx on 06/12/20. Today pt's family called the oncology clinic to report his symptoms and were told to take him to the ER due to concern for hydration and kidney function. Pt states he has not taken his medications for a week due to the nausea. Denies fever, cough, or chest pain. Admits to chills. EMS reports pt was found with BP 86/65. EMS initiated IV access and IV hydration. On arrival pt had BP 90/51. Pt's oncology care is through [facility]. Onset: Gradual Duration: Constant Location: Reports: Abdomen, Generalized Severity: Moderate Improves with: Reports: None Worsens with: Reports: Eating Associated Symptoms: Reports: No Other Symptoms - Related Data Allergies Allergy/AdvReac Type Severity Reaction Status Date / Time No Known Allergies Allergy Verified 06/16/20 18:23 Home Meds: Home Meds Fluticasone/Vilanterol [Breo Ellipta 200-25 MCG Inhalation Kit] 2 puff INH Q4HR 11/29/18 [History] Albuterol [Proventil Neb Soln] 1 unit INH Q4HR PRN 01/11/19 [History] Albuterol [Ventolin HFA] 18 gm INH Q4HR 01/11/19 [History] OLANZapine [Olanzapine] 10 mg PO DAILY 01/11/19 [History] Ondansetron [Ondansetron ODT] 8 mg PO Q6HR PRN 01/11/19 [History] Prochlorperazine [Compazine] 10 mg PO QID PRN 01/11/19 [History] Zolpidem Tartrate 10 mg PO BEDTIME 01/11/19 [History] Amoxicillin/Potassium Clav [Augmentin 500-125 Tablet] 1 each PO BID 7 Days #14 tablet 01/14/19 [Rx] Melatonin 10 mg PO BEDTIME 06/16/20 [History] Mirtazapine 15 mg PO BEDTIME 06/16/20 [History] Multivitamin with Minerals [Multiple Vitamin] 1 tab PO DAILY 06/16/20 [History] Omeprazole 20 mg PO BID 06/16/20 [History] Rivaroxaban [Xarelto] 15 mg PO WITHDINNER 06/16/20 [History] dexAMETHasone [Dexamethasone] 1 mg PO DAILY 06/16/20 [History] Past Medical History HEENT History: Reports: Impaired Vision Other HEENT History: 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 Respiratory History: Reports: COPD Other Respiratory History: Lung cancer Musculoskeletal History: Reports: Arthritis Hematologic History: Reports: Blood Transfusion(s) Oncologic (Cancer) History: Reports: Lung Other Oncologic History: currently on chemo - Infectious Disease History Infectious Disease History: Reports: Chicken Pox, Measles, Mumps - Past Surgical History Respiratory Surgical History: Reports: None Social & Family History - Family History Family Medical History: No Pertinent Family History - Tobacco Use Tobacco Use Status *Q: Former Tobacco User Tobacco Use Within Last Twelve Months: Cigarettes Used Tobacco, but Quit: Yes - Caffeine Use Caffeine Use: Reports: Coffee - Alcohol Use Alcohol Use History: No - Living Situation & Occupation Living situation: Reports: , with Family (Lives with daughter) Occupation: Retired ED ROS GENERAL - Review of Systems Review Of Systems: Comprehensive ROS is negative, except as noted in HPI. ED EXAM, GI/ABD - Physical Exam Exam: See Below Exam Limited By: No Limitations General Appearance: Alert, WD/WN, No Apparent Distress Eyes: Bilateral: Normal Appearance (No scleral icterus) Nose: Normal Inspection, Normal Mucosa, No Blood Throat/Mouth: Normal Lips, Normal Voice, No Airway Compromise, Other (Dry oral mucosa. Aphthous ulcers on tongue.) Head: Atraumatic, Normocephalic Neck: Normal Inspection, Supple, Non-Tender, Full Range of Motion Respiratory/Chest: No Respiratory Distress, Lungs Clear, No Accessory Muscle Use , Chest Non-Tender, Decreased Breath Sounds, Other (Port at Rt upper chest, no overlying erythema or swelling.) Cardiovascular: Regular Rate, Rhythm, No Edema GI/Abdominal Exam: Normal Bowel Sounds, Soft, Non-Tender, No Distention. No: Rigid, Rebound, Tender Back Exam: Normal Inspection Extremities: Normal Inspection, Normal Range of Motion, Non-Tender, Normal Capillary Refill, No Pedal Edema Neurological: Alert, Oriented, CN II-XII Intact, Normal Cognition, No Motor/Se nsory Deficits, Other (Generalized weakness) Psychiatric: Normal Mood Skin Exam: Warm, Dry, Intact, Normal Color, No Rash #1 Interpretation EKG Date: 06/16/20 Time: 18:26 Rhythm: Other (SR) Rate (Beats/Min): 91 [place]: LAD-Left [place] Deviation P-Wave: Present QRS: Other (RSR' V1) ST-T: Normal QT: Prolonged Comparison: NA - No Prior EKG Course - Re-Assessments/Exams Free Text/Narrative Re-Assessment/Exam: 06/16/20 19:00 Care of pt transferred to Demond Jasmine ROLL UP HELPER at shift change. Departure - Departure Disposition: Home, Self-Care 01 Clinical Impression: Dehydration, Episode of generalized weakness, Hx of cancer of lung, History of immunotherapy, Hypotension due to hypovolemia - Discharge Information Instructions: Weakness, Viiy-[id number], Dehydration, Adult, [id number] Forms: ED Department Discharge Additional Instructions: 1.) Follow up with your primary care provider in one to two days regarding today's visit; ask if you can receive to COVID vaccine at your primary care facility. 2.) Follow up with Public Health if you are unable to obtain a COVID vaccine through your primary care facility. 3.) Drink plenty of water frequently thoughout the day to stay hydrated. 4.) Eat a balanced diet throughout the day. <Meghan Jasmine - Last Filed: 06/16/20 22:19> Course - Vital Signs Last Recorded V/S: Last Vital Signs Temp 97.6 F 06/16/20 18:15 Pulse 92 06/16/20 18:15 Resp 18 06/16/20 18:15 BP 94/51 L 06/16/20 18:15 Pulse Ox 96 06/16/20 18:15 - Orders/Labs/Meds Orders: Active Orders 24 hr Category Date Time Status CULTURE BLOOD [BC] Stat Lab 06/16/20 18:27 Received CULTURE BLOOD [BC] Stat Lab 06/16/20 19:20 Results UA RFX FILI AND CULT IF INDIC [URIN] Stat Lab 06/16/20 18:17 Ordered Blood Culture x2 Reflex Set [OM.PC] Stat Oth 06/16/20 18:16 Ordered Labs: Laboratory Tests 06/16/20 06/16/20 06/16/20 Range/Units 18:27 18:27 18:27 WBC 7.6 (5.0-10.0) 10^3/uL RBC 4.53 L (4.6-6.2) 10^6/uL Hgb 14.1 D (14.0-18.0) g/dL Hct 39.7 L (40.0-54.0) % MCV 87.6 (80-100) fL MCH 31.1 (27.0-34.0) pg MCHC 35.5 H (33.0-35.0) g/dL Plt Count 354 D (150-450) 10^3/uL Neut % (Auto) 56.7 (42.2-75.2) % Lymph % (Auto) 21.7 (20.5-50.1) % [place] % (Auto) 9.8 H (2-8) % Eos % (Auto) 11.7 H (1.0-3.0) % Baso % (Auto) 0.1 (0.0-1.0) % Add Manual Diff Yes Neutrophils % (Manual) 55 (42-75) % Lymphocytes % (Manual) 29 (20-50) % Monocytes % (Manual) 7 (2-8) % Eosinophils % (Manual) 9 H (1-3) % Sodium 131 L (136-145) mmol/L Potassium 3.7 (3.5-5.1) mmol/L Chloride 95 L (98-107) mmol/L Carbon Dioxide 21 (21-32) mmol/L Anion Gap 18.7 H (7-13) mEq/L BUN 34 H (7-18) mg/dL Creatinine 1.48 H (0.70-1.30) mg/dL Est Cr Clr Drug Dosing 50.88 mL/min Estimated GFR (MDRD) 47 BUN/Creatinine Ratio 23.0 (No establ ref range) Glucose 93 (74-99) mg/dL Lactic Acid 0.9 (0.4-2.0) mmol/L Calcium 9.0 (8.5-10.1) mg/dL Magnesium 1.8 (1.8-2.4) mg/dL Total Bilirubin 0.5 (0.2-1.0) mg/dL AST 27 (15-37) U/L ALT 23 (16-63) U/L Alkaline Phosphatase 73 (46-116) U/L Total Protein 6.7 (6.4-8.2) g/dL Albumin 2.7 L (3.4-5.0) g/dL Globulin 4.0 Albumin/Globulin Ratio 0.68 Amylase 43 (25-115) U/L Lipase 60 L (73-393) U/L Influenza Type A RNA (NEGATIVE) Influenza Type B RNA (NEGATIVE) SARS-CoV-2 RNA (NHAN) (NEGATIVE) 06/16/20 Range/Units 19:38 WBC (5.0-10.0) 10^3/uL RBC (4.6-6.2) 10^6/uL Hgb (14.0-18.0) g/dL Hct (40.0-54.0) % MCV (80-100) fL MCH (27.0-34.0) pg MCHC (33.0-35.0) g/dL Plt Count (150-450) 10^3/uL Neut % (Auto) (42.2-75.2) % Lymph % (Auto) (20.5-50.1) % [place] % (Auto) (2-8) % Eos % (Auto) (1.0-3.0) % Baso % (Auto) (0.0-1.0) % Add Manual Diff Neutrophils % (Manual) (42-75) % Lymphocytes % (Manual) (20-50) % Monocytes % (Manual) (2-8) % Eosinophils % (Manual) (1-3) % Sodium (136-145) mmol/L Potassium (3.5-5.1) mmol/L Chloride (98-107) mmol/L Carbon Dioxide (21-32) mmol/L Anion Gap (7-13) mEq/L BUN (7-18) mg/dL Creatinine (0.70-1.30) mg/dL Est Cr Clr Drug Dosing mL/min Estimated GFR (MDRD) BUN/Creatinine Ratio (No establ ref range) Glucose (74-99) mg/dL Lactic Acid (0.4-2.0) mmol/L Calcium (8.5-10.1) mg/dL Magnesium (1.8-2.4) mg/dL Total Bilirubin (0.2-1.0) mg/dL AST (15-37) U/L ALT (16-63) U/L Alkaline Phosphatase (46-116) U/L Total Protein (6.4-8.2) g/dL Albumin (3.4-5.0) g/dL Globulin Albumin/Globulin Ratio Amylase (25-115) U/L Lipase (73-393) U/L Influenza Type A RNA Negative (NEGATIVE) Influenza Type B RNA Negative (NEGATIVE) SARS-CoV-2 RNA (NHAN) Negative (NEGATIVE) Meds: Medications Discontinued Medications Generic Name Dose Route Start Last Admin Trade Name Freq PRN Reason Stop Dose Admin Sodium Chloride 1,000 mls @ 999 mls/hr 06/16/20 19:15 06/16/20 19:42 Normal Saline IV 06/16/20 20:15 999 mls/hr .BOLUS ONE Administration - Re-Assessments/Exams Free Text/Narrative Re-Assessment/Exam: 06/16/20 CBC unremarkable for acute processes; no indications of infectious process. Hgb WNL, may be due to dehydration as RBCs and MCHC indicate a normocytic hypochromic anemia. Acute kidney injury appreciated given creatinine of 1.48, BUN 34, GFR of 47; patient currently receiving NS 1L bolus from ED. Blood pressure continues to improve with bolus, currently 103/71. Discussed findings of lab work and physical exam with patient and likelihood of dehydation with kidney injury. Patient and daughter state he does not typically experience symptoms of nausea, vomiting, fatigue, and muscle aches following his Keytruda infusions. Both express concerns of COVID as the patient has not been able to receive his COVID vaccination. Will test patient. COVID and Influenza negative. While patient's daughter was out of the room he expressed he "..is tired of taking care of everyone" which is why he has not been eating or getting out of bed. The patient's daughter and her teenage children live in his home and he takes on much of the cooking and cleaning in [facility]. Discussed importance of hydration, eating a balanced diet, and talking about his current situation with his daughter as he requires rest. Patient verbalized agreement. Discussed various local vaccination clinics, including the open vaccine clinic at [facility]. Patient able to ambulate appropriately in the ED prior to discharge. Departure - Departure Time of Disposition: 20:52 Condition: Good - Discharge Information *PRESCRIPTION DRUG MONITORING PROGRAM REVIEWED*: Not Applicable *COPY OF PRESCRIPTION DRUG MONITORING REPORT IN PATIENT ARACELI: Not Applicable Sepsis Event Note (ED) - Focused Exam Vital Signs: Vital Signs Temp Pulse Resp BP Pulse Ox 06/16/20 18:15 97.6 F 92 18 94/51 L 96
[2020-06-16 18:56] LABS: ANION GAP 18.7 mEq/L (7-13)
[2020-06-16] MEDS ORDERED: Sodium Chloride 0.9% 1,000 ML IV ONE (19:15)
[2020-06-16 20:33] LABS: CORONAVIRUS COVID-19 NAA NEGATIVE (NEGATIVE)
== END 2020-06-16 21:14 | disposition home or self-care (01) ==
LOC: DL.ED 18:12
DX: E86.0 Dehydration (principal); I95.9 Hypotension, unspecified; E86.1 Hypovolemia; J44.9 Chronic obstructive pulmonary disease, unspecified; Z79.899 Other long term (current) drug therapy; Z87.891 Personal history of nicotine dependence; Z85.118 Personal history of other malignant neoplasm of bronchus and lung; Z92.25 Personal history of immunosuppression therapy; Z20.822 Contact with and (suspected) exposure to COVID-19
CPT/HCPCS: 0240U; 36415; 80053; 82150; 83605; 83690; 83735; 85025; 87040; 93005; 93010; 99284; J7030

== ENCOUNTER 2020-07-22 17:23 | Emergency (ER) | payer MEDICARE ==
[2020-07-22] MEDS ORDERED: Sodium Chloride 0.9% 10 ML Syringe FLUSH PRN (17:37)
[2020-07-22] MEDS ORDERED: Sodium Chloride 0.9% 1,000 ML IV ONE (17:41)
[2020-07-22] MEDS ORDERED: Ondansetron 4 MG/2 ML SDV IV ONE (17:41)
[2020-07-22 17:51] LABS: O2 DELIVERY DEVICE NON REBR MASK
[2020-07-22 17:59] LABS: ALLEN TEST POSITIVE
[2020-07-22 18:00] LABS: PCO2 ARTERIAL 17 mmHg (35-45)
[2020-07-22 18:01] LABS: BASE EXCESS ARTERIAL -8 mmol/L ((-2)-(+3)); O2 SATURATION ARTERIAL 99 % (95-100); PO2 ARTERIAL 129 mmHg (70-100)
[2020-07-22 18:12] LABS: ANION GAP 22.2 mEq/L (7-13); CHLORIDE,CL 97 mmol/L (98-107); SODIUM,NA 130 mmol/L (136-145)
--- NOTE | 2020-07-22 18:21 | CT ---
PROCEDURE INFORMATION: Exam: CT Chest Without Contrast; Diagnostic Exam date and time: 07/22/2020 5:49 PM Age: 70 years old Clinical indication: Other: Hypoxia; Additional info: Multiple falls, syncope, hypoxia, HX lung CA TECHNIQUE: Imaging protocol: Diagnostic computed tomography of the chest without contrast. Total images: 278 Radiation optimization: All CT scans at this facility use at least one of these dose optimization techniques: automated exposure control; mA and/or kV adjustment per patient size (includes targeted exams where dose is matched to clinical indication); or iterative reconstruction. COMPARISON: CT Chest w Cont 11/29/2018 8:19 PM FINDINGS: Tubes, catheters and devices: Right venous catheter in place with the tip near the SVC right atrial junction. Lungs: Moderate to advanced emphysema. Bilateral patchy ground-glass opacities right lung greater than left. Calcified granuloma right lung. Pleural spaces: Unremarkable. No pneumothorax. No pleural effusion. Heart: The there may be a tiny pericardial effusion. Mediastinal space: Suggestion of some minimal abnormal soft tissue in the left hilar/perihilar region. Lack of intravenous contrast material limits evaluation. Difficult to measure. Aorta: Unremarkable. No aortic aneurysm. Lymph nodes: There are a few scattered nonenlarged mediastinal lymph nodes. Calcified right hilar lymph node. Liver: Left lobe of liver cysts. Bones/joints: Unremarkable. No acute fracture. Soft tissues: Unremarkable. IMPRESSION: 1. No evidence for acute injury within the thorax. 2. Suggestion of some minimal abnormal soft tissue in the left hilar/perihilar region not optimally evaluated without contrast. This is in the region of previously noted mass/malignancy. 3. Moderate emphysema. 4. Scattered patchy ground-glass lung opacities, nonspecific. May represent underlying pneumonitis/infection.
--- NOTE | 2020-07-22 18:26 | CT ---
PROCEDURE INFORMATION: Exam: CT Head Without Contrast Exam date and time: 07/22/2020 5:49 PM Age: 70 years old Clinical indication: Injury or trauma; Fall; Blunt trauma (contusions or hematomas); Injury date: ? ; Injury details: HX lung CA; Additional info: Multiple falls, syncope, on xarelto TECHNIQUE: Imaging protocol: Computed tomography of the head without contrast. Radiation optimization: All CT scans at this facility use at least one of these dose optimization techniques: automated exposure control; mA and/or kV adjustment per patient size (includes targeted exams where dose is matched to clinical indication); or iterative reconstruction. COMPARISON: No relevant prior studies available. FINDINGS: Brain: Prominent sulci. Patchy hypodensity of the cerebral white matter which are nonspecific but likely secondary to microangiopathic changes. Cerebral ventricles: The ventricles are prominent secondary to diffuse volume loss/atrophy. Bones/joints: Unremarkable. No acute fracture. Paranasal sinuses: Mild mucoperiosteal thickening of the paranasal sinuses. Mastoid air cells: Visualized mastoid air cells are well aerated. Soft tissues: Unremarkable. IMPRESSION: Chronic age related changes but no evidence of acute intracranial pathology.
--- NOTE | 2020-07-22 18:29 | EDM.PDOC ---
Scribed by Marleen Graham 07/22/20 1814 for Andres Richmond MD <German Butt - Last Filed: 07/22/20 19:18> ED HPI GENERAL MEDICAL PROBLEM - General Chief Complaint: General Stated Complaint: AMBULANCE Time Seen by Provider: 07/22/20 17:32 - Related Data Allergies Allergy/AdvReac Type Severity Reaction Status Date / Time No Known Allergies Allergy Verified 07/22/20 17:56 Home Meds: Home Meds Fluticasone/Vilanterol [Breo Ellipta 200-25 MCG Inhalation Kit] 2 puff INH Q4HR 11/29/18 [History] Albuterol [Proventil Neb Soln] 1 unit INH Q4HR PRN 01/11/19 [History] Albuterol [Ventolin HFA] 18 gm INH Q4HR 01/11/19 [History] OLANZapine [Olanzapine] 10 mg PO DAILY 01/11/19 [History] Ondansetron [Ondansetron ODT] 8 mg PO Q6HR PRN 01/11/19 [History] Prochlorperazine [Compazine] 10 mg PO QID PRN 01/11/19 [History] Zolpidem Tartrate 10 mg PO BEDTIME 01/11/19 [History] Amoxicillin/Potassium Clav [Augmentin 500-125 Tablet] 1 each PO BID 7 Days #14 tablet 01/14/19 [Rx] Melatonin 10 mg PO BEDTIME 06/16/20 [History] Mirtazapine 15 mg PO BEDTIME 06/16/20 [History] Multivitamin with Minerals [Multiple Vitamin] 1 tab PO DAILY 06/16/20 [History] Omeprazole 20 mg PO BID 06/16/20 [History] Rivaroxaban [Xarelto] 15 mg PO WITHDINNER 06/16/20 [History] dexAMETHasone [Dexamethasone] 1 mg PO DAILY 06/16/20 [History] Departure - Departure Disposition: DC/Tfer to [facility] 02 Clinical Impression: Acute kidney injury, Dehydration, Sepsis associated hypotension, Hx of cancer of lung, SOB (shortness of breath) - Discharge Information Forms: ED Department Discharge, Interfacility Transfer EMTALA <Andres Richmond - Last Filed: 07/22/20 19:49> ED HPI GENERAL MEDICAL PROBLEM - General Source of Information: Reports: Patient, EMS, EMS Notes Reviewed, Old Records, RN, RN Notes Reviewed History Limitations: Reports: No Limitations - History of Present Illness INITIAL COMMENTS - FREE TEXT/NARRATIVE: Pt arrives from home by ambulance with report that pt has had multiple falls, generalized weakness, shortness of breath, nausea, and diarrhea that began two weeks ago shortly after receiving his second COVID vaccine. Pt denies fever. He denies hitting his head when he fell, but family is not certain that he didn't hit his head. Pt has Hx of lung CA. *Pt is FULL CODE. 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 Respiratory History: Reports: COPD Other Respiratory History: Lung cancer Musculoskeletal History: Reports: Arthritis Hematologic History: Reports: Blood Transfusion(s) Oncologic (Cancer) History: Reports: Lung Other Oncologic History: currently on chemo - Infectious Disease History Infectious Disease History: Reports: Chicken Pox, Measles, Mumps - Past Surgical History HEENT Surgical History: Reports: Eye Surgery Respiratory Surgical History: Reports: None Other Respiratory Surgeries/Procedures: removal of tumors GI Surgical History: Reports: Colonoscopy Social & Family History - Family History Family Medical History: No Pertinent Family History - Caffeine Use Caffeine Use: Reports: None - Living Situation & Occupation Living situation: Reports: , with Family (Lives with daughter) Occupation: Retired ED ROS GENERAL - Review of Systems Review Of Systems: Comprehensive ROS is negative, except as noted in HPI. ED EXAM, GENERAL - Physical Exam Exam: See Below Exam Limited By: No Limitations General Appearance: Alert, Thin, Cachetic, Other (Chronically ill appearing) Eye Exam: Bilateral Eye: Normal Inspection (No scleral icterus) Ears: Normal External Exam, Hearing Grossly Normal Nose: Normal Inspection, Normal Mucosa, No Blood Throat/Mouth: Normal Lips, Normal Voice, No Airway Compromise, Other (Dry oral mucosa) Head: Atraumatic, Normocephalic Neck: Normal Inspection, Non-Tender, Full Range of Motion Respiratory/Chest: No Respiratory Distress, No Accessory Muscle Use, Chest Non- Tender, Decreased Breath Sounds, Crackles. No: Rales, Rhonchi, Wheezing Cardiovascular: Regular Rate, Rhythm, No Edema, Tachycardia Peripheral Pulses: 3+: Radial (L), Radial (R) GI/Abdominal: Normal Bowel Sounds, Soft, No Distention, Tender (Mild generalized tenderness). No: Guarding, Rigid, Rebound (Male) Exam: Deferred Rectal (Males) Exam: Deferred Extremities: No Pedal Edema, Other (Mild superficial abrasion to left knee). No: Joint Swelling, Mottled, Pallor, Redness Neurological: Alert, Oriented, No Motor/Sensory Deficits (Generalized weakness) Psychiatric: Depressed Mood, Flat Affect Skin Exam: Warm, Dry, Intact, Normal Color, No Rash #1 Interpretation EKG Date: 07/22/20 Time: 18:14 Rhythm: Other (Sinus tach) Rate (Beats/Min): 111 [place]: Normal P-Wave: Present QRS: Normal ST-T: Normal QT: Prolonged Comparison: NA - No Prior EKG Course - Vital Signs Last Recorded V/S: Last Vital Signs Temp 98.4 F 07/22/20 17:52 Pulse 114 H 07/22/20 17:52 Resp 28 H 07/22/20 17:52 BP 77/39 L 07/22/20 17:52 Pulse Ox 76 L 07/22/20 17:52 Repeat BP: 91/60 - Orders/Labs/Meds Orders: Active Orders 24 hr Category Date Time Status EKG 12 Lead [EKG Documentation Completion] [RC] STAT Care 07/22/20 17:37 Active Insert Wall Catheter [Insert Urinary Catheter] [OM.PC] Care 07/22/20 17:37 Ordered Stat Peripheral IV Care [RC] . DIRECTED Care 07/22/20 17:38 Active Urinary Catheter Assessment [RC] ASDIRECTED Care 07/22/20 17:38 Active Chest 1V Frontal [CR] Stat Exams 07/22/20 17:37 Stop Req CULTURE BLOOD [BC] Stat Lab 07/22/20 17:42 Results Levofloxacin/Dextrose 5%-Water [Levaquin in D5W 500 MG/ Med 07/22/20 19:00 Active 100 ML] 500 mg Premix Bag 1 bag IV ONETIME Sodium Chloride 0.9% [Normal Saline] 1,000 ml Med 07/22/20 19:00 Active IV ASDIRECTED Sodium Chloride 0.9% [Saline Flush] Med 07/22/20 17:37 Active 10 ml FLUSH ASDIRECTED PRN Blood Culture x2 Reflex Set [OM.PC] Stat Oth 07/22/20 17:36 Ordered Peripheral IV Insertion Adult [OM.PC] Routine Oth 07/22/20 17:37 Ordered Medication Orders Levofloxacin/Dextrose 500 mg/ (Premix) 100 mls @ 100 mls/hr IV ONETIME ONE Stop: 07/22/20 19:59 Last Admin: 07/22/20 19:11 Dose: 100 mls/hr Documented by: HEMALATHA Sodium Chloride (Normal Saline) 1,000 mls @ 75 mls/hr IV ASDIRECTED CASSANDRA Last Admin: 07/22/20 19:10 Dose: 75 mls/hr Documented by: HEMALATHA Sodium Chloride (Sodium Chloride 0.9% 10 Ml Syringe) 10 ml FLUSH ASDIRECTED PRN PRN Reason: Keep Vein Open Last Admin: 07/22/20 19:10 Dose: 10 ml Documented by: HEMALATHA Labs: Laboratory Tests 07/22/20 07/22/20 07/22/20 Range/Units 17:42 17:42 17:42 WBC 14.2 H (5.0-10.0) 10^3/uL RBC 3.95 L (4.6-6.2) 10^6/uL Hgb 11.4 L D (14.0-18.0) g/dL Hct 33.5 L (40.0-54.0) % MCV 84.8 (80-100) fL MCH 28.9 (27.0-34.0) pg MCHC 34.0 (33.0-35.0) g/dL Plt Count 510 H D (150-450) 10^3/uL Neut % (Auto) 77.1 H (42.2-75.2) % Lymph % (Auto) 13.4 L (20.5-50.1) % Buchanan % (Auto) 7.1 (2-8) % Eos % (Auto) 2.3 (1.0-3.0) % Baso % (Auto) 0.1 (0.0-1.0) % PT 13.7 H D (9.0-12.0) SEC INR 1.4 H (0.9-1.2) APTT 34.6 H (22.0-34.0) SEC ABG pH (7.35-7.45) ABG pCO2 (35-45) mmHg ABG pO2 (70-100) mmHg ABG HCO3 (22-26) mmol/L ABG O2 Saturation (95-100) % ABG Base Excess ((-2)-(+3)) mmol/L Kevin Test O2 Delivery Device Sodium 130 L (136-145) mmol/L Potassium 4.2 (3.5-5.1) mmol/L Chloride 97 L (98-107) mmol/L Carbon Dioxide 15 L (21-32) mmol/L Anion Gap 22.2 H (7-13) mEq/L BUN 52 H (7-18) mg/dL Creatinine 5.21 H* D (0.70-1.30) mg/dL Est Cr Clr Drug Dosing 12.95 mL/min Estimated GFR (MDRD) 11 BUN/Creatinine Ratio 10.0 (No establ ref range) Glucose 96 (70-99) mg/dL Lactic Acid (0.4-2.0) mmol/L Calcium 8.1 L (8.5-10.1) mg/dL Total Bilirubin 0.8 (0.2-1.0) mg/dL AST 33 (15-37) U/L ALT 21 (16-63) U/L Alkaline Phosphatase 86 (46-116) U/L Troponin I < 0.017 (0.000-0.056) ng/mL Total Protein 5.6 L (6.4-8.2) g/dL Albumin 2.1 L (3.4-5.0) g/dL Globulin 3.5 Albumin/Globulin Ratio 0.60 Amylase 62 (25-115) U/L Urine Color (YELLOW) Urine Appearance (CLEAR) Urine pH (5.0-9.0) Ur Specific [place] (1.005-1.030) Urine Protein (NEGATIVE) Urine Glucose (UA) (NEGATIVE) Urine Ketones (NEGATIVE) Urine Occult Blood (NEGATIVE) Urine Nitrite (NEGATIVE) Urine Bilirubin (NEGATIVE) Urine Urobilinogen (0.2-1.0) mg/dL Ur Leukocyte Esterase (NEGATIVE) U Hyaline Cast (Auto) Urine RBC /HPF Urine WBC (0-5/HPF) /HPF Ur Epithelial Cells (NOT SEEN) /HPF Amorphous Sediment (NOT SEEN) /HPF Influenza Type A RNA (NEGATIVE) Influenza Type B RNA (NEGATIVE) SARS-CoV-2 RNA (NHAN) (NEGATIVE) 07/22/20 07/22/20 07/22/20 Range/Units 17:42 17:42 18:20 WBC (5.0-10.0) 10^3/uL RBC (4.6-6.2) 10^6/uL Hgb (14.0-18.0) g/dL Hct (40.0-54.0) % MCV (80-100) fL MCH (27.0-34.0) pg MCHC (33.0-35.0) g/dL Plt Count (150-450) 10^3/uL Neut % (Auto) (42.2-75.2) % Lymph % (Auto) (20.5-50.1) % Buchanan % (Auto) (2-8) % Eos % (Auto) (1.0-3.0) % Baso % (Auto) (0.0-1.0) % PT (9.0-12.0) SEC INR (0.9-1.2) APTT (22.0-34.0) SEC ABG pH 7.50 H (7.35-7.45) ABG pCO2 17 L* (35-45) mmHg ABG pO2 129 H (70-100) mmHg ABG HCO3 13.0 L (22-26) mmol/L ABG O2 Saturation 99 (95-100) % ABG Base Excess -8 L ((-2)-(+3)) mmol/L Kevin Test Positive O2 Delivery Device Non rebr mask Sodium (136-145) mmol/L Potassium (3.5-5.1) mmol/L Chloride (98-107) mmol/L Carbon Dioxide (21-32) mmol/L Anion Gap (7-13) mEq/L BUN (7-18) mg/dL Creatinine (0.70-1.30) mg/dL Est Cr Clr Drug Dosing mL/min Estimated GFR (MDRD) BUN/Creatinine Ratio (No establ ref range) Glucose (70-99) mg/dL Lactic Acid 2.5 H* (0.4-2.0) mmol/L Calcium (8.5-10.1) mg/dL Total Bilirubin (0.2-1.0) mg/dL AST (15-37) U/L ALT (16-63) U/L Alkaline Phosphatase (46-116) U/L Troponin I (0.000-0.056) ng/mL Total Protein (6.4-8.2) g/dL Albumin (3.4-5.0) g/dL Globulin Albumin/Globulin Ratio Amylase (25-115) U/L Urine Color Amina (YELLOW) Urine Appearance Cloudy (CLEAR) Urine pH 5.0 (5.0-9.0) Ur Specific [place] >= 1.030 (1.005-1.030) Urine Protein 100 H (NEGATIVE) Urine Glucose (UA) Negative (NEGATIVE) Urine Ketones Trace H (NEGATIVE) Urine Occult Blood Small H (NEGATIVE) Urine Nitrite Negative (NEGATIVE) Urine Bilirubin Small H (NEGATIVE) Urine Urobilinogen 0.2 (0.2-1.0) mg/dL Ur Leukocyte Esterase Negative (NEGATIVE) U Hyaline Cast (Auto) Rare Urine RBC 0-5 /HPF Urine WBC 0-5 (0-5/HPF) /HPF Ur Epithelial Cells Rare (NOT SEEN) /HPF Amorphous Sediment Few (NOT SEEN) /HPF Influenza Type A RNA (NEGATIVE) Influenza Type B RNA (NEGATIVE) SARS-CoV-2 RNA (NHAN) (NEGATIVE) 07/22/20 Range/Units 18:21 WBC (5.0-10.0) 10^3/uL RBC (4.6-6.2) 10^6/uL Hgb (14.0-18.0) g/dL Hct (40.0-54.0) % MCV (80-100) fL MCH (27.0-34.0) pg MCHC (33.0-35.0) g/dL Plt Count (150-450) 10^3/uL Neut % (Auto) (42.2-75.2) % Lymph % (Auto) (20.5-50.1) % [place]anan % (Auto) (2-8) % Eos % (Auto) (1.0-3.0) % Baso % (Auto) (0.0-1.0) % PT (9.0-12.0) SEC INR (0.9-1.2) APTT (22.0-34.0) SEC ABG pH (7.35-7.45) ABG pCO2 (35-45) mmHg ABG pO2 (70-100) mmHg ABG HCO3 (22-26) mmol/L ABG O2 Saturation (95-100) % ABG Base Excess ((-2)-(+3)) mmol/L Kevin Test O2 Delivery Device Sodium (136-145) mmol/L Potassium (3.5-5.1) mmol/L Chloride (98-107) mmol/L Carbon Dioxide (21-32) mmol/L Anion Gap (7-13) mEq/L BUN (7-18) mg/dL Creatinine (0.70-1.30) mg/dL Est Cr Clr Drug Dosing mL/min Estimated GFR (MDRD) BUN/Creatinine Ratio (No establ ref range) Glucose (70-99) mg/dL Lactic Acid (0.4-2.0) mmol/L Calcium (8.5-10.1) mg/dL Total Bilirubin (0.2-1.0) mg/dL AST (15-37) U/L ALT (16-63) U/L Alkaline Phosphatase (46-116) U/L Troponin I (0.000-0.056) ng/mL Total Protein (6.4-8.2) g/dL Albumin (3.4-5.0) g/dL Globulin Albumin/Globulin Ratio Amylase (25-115) U/L Urine Color (YELLOW) Urine Appearance (CLEAR) Urine pH (5.0-9.0) Ur Specific [place] (1.005-1.030) Urine Protein (NEGATIVE) Urine Glucose (UA) (NEGATIVE) Urine Ketones (NEGATIVE) Urine Occult Blood (NEGATIVE) Urine Nitrite (NEGATIVE) Urine Bilirubin (NEGATIVE) Urine Urobilinogen (0.2-1.0) mg/dL Ur Leukocyte Esterase (NEGATIVE) U Hyaline Cast (Auto) Urine RBC /HPF Urine WBC (0-5/HPF) /HPF Ur Epithelial Cells (NOT SEEN) /HPF Amorphous Sediment (NOT SEEN) /HPF Influenza Type A RNA Negative (NEGATIVE) Influenza Type B RNA Negative (NEGATIVE) SARS-CoV-2 RNA (NHAN) Negative (NEGATIVE) Meds: Medications Generic Name Dose Route Start Last Admin Trade Name Freq PRN Reason Stop Dose Admin Levofloxacin/Dextrose 500 mg/ 100 mls @ 100 mls/hr 07/22/20 19:00 07/22/20 19:11 Premix IV 07/22/20 19:59 100 mls/hr ONETIME ONE Administration Sodium Chloride 1,000 mls @ 75 mls/hr 07/22/20 19:00 07/22/20 19:10 Normal Saline IV 75 mls/hr ASDIRECTED CASSANDRA Administration Sodium Chloride 10 ml 07/22/20 17:37 07/22/20 19:10 Sodium Chloride 0.9% 10 Ml Syringe FLUSH 10 ml ASDIRECTED PRN Administration Keep Vein Open Discontinued Medications Generic Name Dose Route Start Last Admin Trade Name Ninfa PRN Reason Stop Dose Admin Sodium Chloride 1,000 mls @ 999 mls/hr 07/22/20 17:41 07/22/20 18:12 Normal Saline IV 07/22/20 18:41 999 mls/hr .BOLUS ONE Administration Ondansetron HCl 4 mg 07/22/20 17:41 07/22/20 17:49 Ondansetron 4 Mg/2 Ml Sdv IV 07/22/20 17:42 4 mg ONETIME ONE Administration - Radiology Interpretation Free Text/Narrative:: [facility] Final Radiology Report Call: [phone] assistance Online chat: [email or web address] Name: BANDAR GARNICA Age: 70Years M Date: 07/22/2020 SSN: -- : 1950 Study: CT CHEST WO CONT Requesting Physician: ANDRES RICHMOND Images: [id number] Addl Studies: Provided Clinical History: multiple falls, syncope, hypoxia, Hx Lung CA Contrast: Without Contrast Medium: Contrast Amount: Contrast Method: Page 1 of 2 PROCEDURE INFORMATION: Exam: CT Chest Without Contrast; Diagnostic Exam date and time: 07/22/2020 5:49 PM Age: 70 years old Clinical indication: Other: Hypoxia; Additional info: Multiple falls, syncope, hypoxia, HX lung CA TECHNIQUE: Imaging protocol: Diagnostic computed tomography of the chest without contrast. Total images: [id number] Radiation optimization: All CT scans at this facility use at least one of these dose optimization techniques: automated exposure control; mA and/or kV adjustment per patient size (includes targeted exams where dose is matched to clinical indication); or iterative reconstruction. COMPARISON: CT Chest w Cont 11/29/2018 8:19 PM FINDINGS: Tubes, catheters and devices: Right venous catheter in place with the tip near the SVC right atrial junction. Lungs: Moderate to advanced emphysema. Bilateral patchy ground-glass opacities right lung greater than left. Calcified granuloma right lung. Pleural spaces: Unremarkable. No pneumothorax. No pleural effusion. Heart: The there may be a tiny pericardial effusion. Mediastinal space: Suggestion of some minimal abnormal soft tissue in the left hilar/perihilar region. Lack of intravenous contrast material limits evaluation. Difficult to measure. Aorta: Unremarkable. No aortic aneurysm. Lymph nodes: There are a few scattered nonenlarged mediastinal lymph nodes. Calcified right hilar lymph node. Liver: Left lobe of liver cysts. BANDAR GARNICA | Final Radiology Report CONFIDENTIALITY STATEMENT This report is intended only for use by the referring physician, and only in accordance with law. If you received this in error, call [phone]. Page 2 of 2 Bones/joints: Unremarkable. No acute fracture. Soft tissues: Unremarkable. IMPRESSION: 1. No evidence for acute injury within the thorax. 2. Suggestion of some minimal abnormal soft tissue in the left hilar/perihilar region not optimally evaluated without contrast. This is in the region of previously noted mass/malignancy. 3. Moderate emphysema. 4. Scattered patchy ground-glass lung opacities, nonspecific. May represent underlying pneumonitis/infection. Thank you for allowing us to participate in the care of your patient. Dictated and Authenticated by: Jayson Villalpando MD 07/22/2020 6:20 PM Central Time ([place] & [place]) [facility] Final Radiology Report Call: [phone] assistance Online chat: [email or web address] Name: BANDAR GARNICA Age: 70Years M Date: 07/22/2020 SSN: -- : 1950 Study: CT HEAD WO CONT Requesting Physician: ANDRES RICHMOND Images: [id number] Addl Studies: Provided Clinical History: multiple falls, syncope, on Xarelto Contrast: Without Contrast Medium: Contrast Amount: Contrast Method: Page 1 of 2 PROCEDURE INFORMATION: Exam: CT Head Without Contrast Exam date and time: 07/22/2020 5:49 PM Age: 70 years old Clinical indication: Injury or trauma; Fall; Blunt trauma (contusions or hematomas); Injury date: ? ; Injury details: HX lung CA; Additional info: Multiple falls, syncope, on xarelto TECHNIQUE: Imaging protocol: Computed tomography of the head without contrast. Radiation optimization: All CT scans at this facility use at least one of these dose optimization techniques: automated exposure control; mA and/or kV adjustment per patient size (includes targeted exams where dose is matched to clinical indication); or iterative reconstruction. COMPARISON: No relevant prior studies available. FINDINGS: Brain: Prominent sulci. Patchy hypodensity of the cerebral white matter which are nonspecific but likely secondary to microangiopathic changes. Cerebral ventricles: The ventricles are prominent secondary to diffuse volume loss/atrophy. Bones/joints: Unremarkable. No acute fracture. Paranasal sinuses: Mild mucoperiosteal thickening of the paranasal sinuses. Mastoid air cells: Visualized mastoid air cells are well aerated. Soft tissues: Unremarkable. IMPRESSION: Chronic age related changes but no evidence of acute intracranial pathology. Thank you for allowing us to participate in the care of your patient. BANDAR GARNICA | Final Radiology Report CONFIDENTIALITY STATEMENT This report is intended only for use by the referring physician, and only in accordance with law. If you received this in error, call [phone]. Page 2 of 2 Dictated and Authenticated by: Shanda Salas MD 07/22/2020 6:26 PM Central Time ([place] & [place]) [facility] Final Radiology Report Call: [phone] assistance Online chat: [email or web address] Name: BANDAR GARNICA Age: 70Years M Date: 07/22/2020 SSN: -- : 1950 Study: CT HEAD WO CONT Requesting Physician: ANDRES RICHMOND Images: [id number] Addl Studies: Provided Clinical History: multiple falls, syncope, on Xarelto Contrast: Without Contrast Medium: Contrast Amount: Contrast Method: Page 1 of 2 PROCEDURE INFORMATION: Exam: CT Head Without Contrast Exam date and time: 07/22/2020 5:49 PM Age: 70 years old Clinical indication: Injury or trauma; Fall; Blunt trauma (contusions or hematomas); Injury date: ? ; Injury details: HX lung CA; Additional info: Multiple falls, syncope, on xarelto TECHNIQUE: Imaging protocol: Computed tomography of the head without contrast. Radiation optimization: All CT scans at this facility use at least one of these dose optimization techniques: automated exposure control; mA and/or kV adjustment per patient size (includes targeted exams where dose is matched to clinical indication); or iterative reconstruction. COMPARISON: No relevant prior studies available. FINDINGS: Brain: Prominent sulci. Patchy hypodensity of the cerebral white matter which are nonspecific but likely secondary to microangiopathic changes. Cerebral ventricles: The ventricles are prominent secondary to diffuse volume loss/atrophy. Bones/joints: Unremarkable. No acute fracture. Paranasal sinuses: Mild mucoperiosteal thickening of the paranasal sinuses. Mastoid air cells: Visualized mastoid air cells are well aerated. Soft tissues: Unremarkable. IMPRESSION: Chronic age related changes but no evidence of acute intracranial pathology. Thank you for allowing us to participate in the care of your patient. BANDAR GARNICA | Final Radiology Report CONFIDENTIALITY STATEMENT This report is intended only for use by the referring physician, and only in accordance with law. If you received this in error, call [phone]. Page 2 of 2 Dictated and Authenticated by: Shanda Salas MD 07/22/2020 6:26 PM Central Time ([place] & [place]) - Re-Assessments/Exams Free Text/Narrative Re-Assessment/Exam: 07/22/20 18:55 No beds avail. at . Pt with [facility]. Plan to transfer to [facility], with Dr. Martin accepting. Awaiting COVID test result for bed placement. Departure - Departure Time of Disposition: 18:56 Condition: Serious, Critical - Discharge Information *PRESCRIPTION DRUG MONITORING PROGRAM REVIEWED*: Not Applicable *COPY OF PRESCRIPTION DRUG MONITORING REPORT IN PATIENT ARACELI: Not Applicable Sepsis Event Note (ED) - Focused Exam Vital Signs: Vital Signs Temp Pulse Resp BP Pulse Ox 07/22/20 17:52 98.4 F 114 H 28 H 77/39 L 76 L - My Orders Last 24 Hours: My Active Orders 07/22/20 17:36 Blood Culture x2 Reflex Set [OM.PC] Stat 07/22/20 17:37 EKG 12 Lead [EKG Documentation Completion] [RC] STAT Insert Wall Catheter [Insert Urinary Catheter] [OM.PC] Stat Chest 1V Frontal [CR] Stat Sodium Chloride 0.9% [Saline Flush] 10 ml FLUSH ASDIRECTED PRN Peripheral IV Insertion Adult [OM.PC] Routine 07/22/20 17:38 Peripheral IV Care [RC] . DIRECTED Urinary Catheter Assessment [RC] ASDIRECTED 07/22/20 17:42 CULTURE BLOOD [BC] Stat 07/22/20 19:00 Levofloxacin/Dextrose 5%-Water [Levaquin in D5W 500 MG/100 ML] 500 mg Premix Bag 1 bag IV ONETIME Sodium Chloride 0.9% [Normal Saline] 1,000 ml IV ASDIRECTED - Assessment/Plan Last 24 Hours: My Active Orders 07/22/20 17:36 Blood Culture x2 Reflex Set [OM.PC] Stat 07/22/20 17:37 EKG 12 Lead [EKG Documentation Completion] [RC] STAT Insert Wall Catheter [Insert Urinary Catheter] [OM.PC] Stat Chest 1V Frontal [CR] Stat Sodium Chloride 0.9% [Saline Flush] 10 ml FLUSH ASDIRECTED PRN Peripheral IV Insertion Adult [OM.PC] Routine 07/22/20 17:38 Peripheral IV Care [RC] . DIRECTED Urinary Catheter Assessment [RC] ASDIRECTED 07/22/20 17:42 CULTURE BLOOD [BC] Stat 07/22/20 19:00 Levofloxacin/Dextrose 5%-Water [Levaquin in D5W 500 MG/100 ML] 500 mg Premix Bag 1 bag IV ONETIME Sodium Chloride 0.9% [Normal Saline] 1,000 ml IV ASDIRECTED I have read and agree with the documentation that has been completed regarding this visit. By signing this record, I attest that the documentation was completed in my physical presence and is an accurate record of the encounter.
--- NOTE | 2020-07-22 18:37 | CT ---
PROCEDURE INFORMATION: Exam: CT Cervical Spine Without Contrast Exam date and time: 07/22/2020 5:49 PM Age: 70 years old Clinical indication: Other: Multiple falls, syncope; Patient HX: HX lung CA TECHNIQUE: Imaging protocol: Computed tomography images of the cervical spine without contrast. Radiation optimization: All CT scans at this facility use at least one of these dose optimization techniques: automated exposure control; mA and/or kV adjustment per patient size (includes targeted exams where dose is matched to clinical indication); or iterative reconstruction. COMPARISON: No relevant prior studies available. FINDINGS: Bones/joints: There are no perched or locked facets and the craniocervical relationship is normal. No acute fracture. Discs/Spinal canal/Neural foramina: Age-appropriate. Thyroid: Subcentimeter lucent nodule right thyroid lobe incidental requiring no further workup according to guidelines. Lungs: There is mild fibrobullous lung disease. Subpleural band of ground-glass density at the right lung apex, suspect pneumonitis. Possibly COVID-19 pneumonia. Correlate clinically. Soft tissues: Unremarkable. Other findings: Age-appropriate spondylosis with relatively mild spinal stenosis. IMPRESSION: 1. No sign of acute cervical spine injury. 2. Subpleural band of ground-glass density at the right lung apex, suspect pneumonitis. Possibly COVID-19 pneumonia. Correlate clinically. COMMENTS: Consistent with the [employer]'s Incidental Findings Committee white paper (J Am Laz Radiol 2015): In patients aged 35 years and older with an incidental thyroid nodule equal to or greater than 1.[address], MRI or extrathyroidal US, further evaluation with dedicated thyroid US is recommended for patients with normal life expectancy and without comorbidities. For smaller nodules without suspicious features, no further evaluation or follow up is recommended.
[2020-07-22 18:47] LABS: PTT,PARTIAL THROMBOPLSTIN TIME 34.6 SEC (22.0-34.0)
[2020-07-22] MEDS ORDERED: Levofloxacin/Dextrose 5%-Water 500 MG in Premix Bag 1 BAG IV ONE (19:00)
[2020-07-22] MEDS ORDERED: Sodium Chloride 0.9% 1,000 ML IV SCH (19:00)
[2020-07-22 19:08] LABS: CORONAVIRUS COVID-19 NAA NEGATIVE (NEGATIVE)
== END 2020-07-22 19:40 ==
LOC: DL.ED 17:23
DX: A41.9 Sepsis, unspecified organism (principal); R65.21 Severe sepsis with septic shock; N17.9 Acute kidney failure, unspecified; E86.0 Dehydration; I95.9 Hypotension, unspecified; J44.9 Chronic obstructive pulmonary disease, unspecified; Z85.118 Personal history of other malignant neoplasm of bronchus and lung; Z79.899 Other long term (current) drug therapy; Z20.822 Contact with and (suspected) exposure to COVID-19
CPT/HCPCS: 0240U; 36415; 36600; 70450; 71250; 72125; 80053; 81001; 82150; 82803; 83605; 84484; 85025; 85610; 85730; 87040; 93005; 93010; 96365; 96375; 99284; 99285-25; J1956; J2405; J7030

== ENCOUNTER 2020-10-15 00:20 | Emergency (ER) | payer MEDICARE ==
--- NOTE | 2020-10-15 01:06 | EDM.PDOC ---
ED [facility] GENERAL MEDICAL PROBLEM - General Chief Complaint: Respiratory Problem Stated Complaint: AMBULANCE Time Seen by Provider: 10/15/20 00:58 Source of Information: Reports: Patient History Limitations: Reports: Respiratory Distress - History of Present Illness INITIAL COMMENTS - FREE TEXT/NARRATIVE: This 70 yo male patient was brought to the ED due to increased shortness of breath. The patient reports that he can not remember when his symptoms started. The patient reports he does have a history of lung cancer, but his last CT was reportedly normal according to the patient. EMS reports the patient's oxygen saturation was 81% upon arrival at the patient's home. The patient reports that he does want to have everything done that can be done for him including CPR and ventilatory assist. Onset: Unknown/Unsure Duration: Constant Location: Reports: Chest Quality: Reports: Other Severity: Severe Improves with: Reports: None Worsens with: Reports: None Context: Reports: Other Associated Symptoms: Reports: Shortness of Breath - Related Data Allergies Allergy/AdvReac Type Severity Reaction Status Date / Time Unable to Assess Allergy Unverified 10/15/20 01:32 ED ROS GENERAL - Review of Systems Review Of Systems: Comprehensive ROS is negative, except as noted in HPI. ED EXAM, GENERAL - Physical Exam Exam: See Below Exam Limited By: Respiratory Distress General Appearance: Alert, WD/WN, Severe Distress, Thin Eye Exam: Bilateral Eye: EOMI, Normal Inspection, PERRL Ears: Normal External Exam, Normal Canal, Hearing Grossly Normal, Normal TMs Nose: Normal Inspection, Normal Mucosa, No Blood Throat/Mouth: Normal Inspection, Normal Lips, Normal Teeth, Normal Gums, Normal Oropharynx, Normal Voice, No Airway Compromise Head: Atraumatic, Normocephalic Neck: Normal Inspection, Supple, Non-Tender, Full Range of Motion Respiratory/Chest: Chest Non-Tender, Decreased Breath Sounds Cardiovascular: Normal Peripheral Pulses, No Edema, No Gallop, No JVD, No Murmur, No Rub, Tachycardia (Male) Exam: Deferred Rectal (Males) Exam: Deferred Extremities: Normal Inspection, Normal Range of Motion, Non-Tender, Normal Capillary Refill, No Pedal Edema Neurological: Alert, Oriented, CN II-XII Intact, Normal Cognition Psychiatric: Normal Affect, Normal Mood Skin Exam: Cool Lymphatic: No Adenopathy Course - Vital Signs Last Recorded V/S: Last Vital Signs Temp 96.7 F L 10/15/20 01:24 Pulse 113 H 10/15/20 01:24 Resp 23 H 10/15/20 01:24 BP 83/68 L 10/15/20 01:24 Pulse Ox 97 10/15/20 01:24 - Orders/Labs/Meds Orders: Active Orders 24 hr Category Date Time Status EKG Documentation Completion [RC] STAT Care 10/15/20 00:30 Ordered Chest 1V Frontal [CR] Urgent Exams 10/15/20 00:31 Ordered COVID-19/FLU A+B [MOLEC] Urgent Lab 10/15/20 01:09 Ordered CULTURE BLOOD [BC] Stat Lab 10/15/20 00:30 Ordered REFLEX LACTIC ACID YES OR NO [CHEM] Routine Lab 10/15/20 01:28 Received UA RFX FILI AND CULT IF INDIC [URIN] Urgent Lab 10/15/20 00:30 Ordered cefTRIAXone [Rocephin] 1 gm Med 10/15/20 01:44 Ordered Sodium Chloride 0.9% [Normal Saline] 50 ml IV ONETIME Medication Orders Ceftriaxone Sodium 1 gm/ (Sodium Chloride) 50 mls @ 100 mls/hr IV ONETIME ONE Stop: 10/15/20 02:13 Last Admin: 10/15/20 01:58 Dose: 100 mls/hr Documented by: HEMALATHA Labs: Laboratory Tests 10/15/20 10/15/20 10/15/20 Range/Units 00:55 00:55 00:55 WBC 17.1 H (5.0-10.0) 10^3/uL RBC 4.35 L (4.6-6.2) 10^6/uL Hgb 12.7 L (14.0-18.0) g/dL Hct 37.0 L (40.0-54.0) % MCV 85.1 (80-100) fL MCH 29.2 (27.0-34.0) pg MCHC 34.3 (33.0-35.0) g/dL Plt Count 513 H (150-450) 10^3/uL Neut % (Auto) 80.3 H (42.2-75.2) % Lymph % (Auto) 11.5 L (20.5-50.1) % [place] % (Auto) 6.4 (2-8) % Eos % (Auto) 1.7 (1.0-3.0) % Baso % (Auto) 0.1 (0.0-1.0) % D-Dimer, Quantitative (0-400) ng/mL Sodium 136 (136-145) mmol/L Potassium 4.0 (3.5-5.1) mmol/L Chloride 100 (98-107) mmol/L Carbon Dioxide 13 L (21-32) mmol/L Anion Gap 27.0 H (7-13) mEq/L BUN 51 H (7-18) mg/dL Creatinine 6.55 H* (0.70-1.30) mg/dL Est Cr Clr Drug Dosing 10.30 mL/min Estimated GFR (MDRD) 8 BUN/Creatinine Ratio 7.8 (No establ ref range) Glucose 109 H (70-99) mg/dL Lactic Acid 2.1 H* (0.4-2.0) mmol/L Calcium 8.7 (8.5-10.1) mg/dL Total Bilirubin 0.5 (0.2-1.0) mg/dL AST 31 (15-37) U/L ALT 13 L (16-63) U/L Alkaline Phosphatase 70 (46-116) U/L Troponin I High Sens 14 (<=76) pg/mL Total Protein 6.1 L (6.4-8.2) g/dL Albumin 2.3 L (3.4-5.0) g/dL Globulin 3.8 Albumin/Globulin Ratio 0.61 06/30/21 Range/Units 00:55 WBC (5.0-10.0) 10^3/uL RBC (4.6-6.2) 10^6/uL Hgb (14.0-18.0) g/dL Hct (40.0-54.0) % MCV (80-100) fL MCH (27.0-34.0) pg MCHC (33.0-35.0) g/dL Plt Count (150-450) 10^3/uL Neut % (Auto) (42.2-75.2) % Lymph % (Auto) (20.5-50.1) % [place] % (Auto) (2-8) % Eos % (Auto) (1.0-3.0) % Baso % (Auto) (0.0-1.0) % D-Dimer, Quantitative 1560 H (0-400) ng/mL Sodium (136-145) mmol/L Potassium (3.5-5.1) mmol/L Chloride (98-107) mmol/L Carbon Dioxide (21-32) mmol/L Anion Gap (7-13) mEq/L BUN (7-18) mg/dL Creatinine (0.70-1.30) mg/dL Est Cr Clr Drug Dosing mL/min Estimated GFR (MDRD) BUN/Creatinine Ratio (No establ ref range) Glucose (70-99) mg/dL Lactic Acid (0.4-2.0) mmol/L Calcium (8.5-10.1) mg/dL Total Bilirubin (0.2-1.0) mg/dL AST (15-37) U/L ALT (16-63) U/L Alkaline Phosphatase (46-116) U/L Troponin I High Sens (<=76) pg/mL Total Protein (6.4-8.2) g/dL Albumin (3.4-5.0) g/dL Globulin Albumin/Globulin Ratio Meds: Medications Generic Name Dose Route Start Last Admin Trade Name Freq PRN Reason Stop Dose Admin Ceftriaxone Sodium 1 gm/ 50 mls @ 100 mls/hr 10/15/20 01:44 10/15/20 01:58 Sodium Chloride IV 10/15/20 02:13 100 mls/hr ONETIME ONE Administration Departure - Departure Time of Disposition: 02:05 Disposition: DC/Tfer to [facility] 02 Condition: Serious Clinical Impression: Pneumonia Qualifiers: Pneumonia type: due to unspecified organism Laterality: unspecified laterality Lung location: unspecified part of lung Qualified Code(s): J18.9 - Pneumonia, unspecified organism Acute renal failure Qualifiers: Acute renal failure type: unspecified Qualified Code(s): N17.9 - Acute kidney failure, unspecified - Discharge Information *PRESCRIPTION DRUG MONITORING PROGRAM REVIEWED*: Not Applicable *COPY OF PRESCRIPTION DRUG MONITORING REPORT IN PATIENT ARACELI: Not Applicable Forms: Interfacility Transfer EMTALA Care Plan Goals: Discussed the patient's history, examination, lab and x-ray results with . accepted the patient for continued evaluation and treatment as an inpatient at [facility] in [place]. The patient will be transported by [facility]. Sepsis Event Note (ED) - Evaluation Sepsis Screening Result: No Definite Risk - Focused Exam Vital Signs: Vital Signs Temp Pulse Resp BP Pulse Ox 10/15/20 01:24 96.7 F L 113 H 23 H 83/68 L 97 10/15/20 00:43 97.1 F 110 H 20 96 10/15/20 00:37 96.7 F L 110 H 26 H 68/51 L 85 L - My Orders Last 24 Hours: My Active Orders 10/15/20 00:30 EKG Documentation Completion [RC] STAT CULTURE BLOOD [BC] Stat UA RFX FILI AND CULT IF INDIC [URIN] Urgent 10/15/20 00:31 Chest 1V Frontal [CR] Urgent 10/15/20 01:09 COVID-19/FLU A+B [MOLEC] Urgent 10/15/20 01:28 REFLEX LACTIC ACID YES OR NO [CHEM] Routine 10/15/20 01:44 cefTRIAXone [Rocephin] 1 gm Sodium Chloride 0.9% [Normal Saline] 50 ml IV ONETIME - Assessment/Plan Last 24 Hours: My Active Orders 10/15/20 00:30 EKG Documentation Completion [RC] STAT CULTURE BLOOD [BC] Stat UA RFX FILI AND CULT IF INDIC [URIN] Urgent 10/15/20 00:31 Chest 1V Frontal [CR] Urgent 10/15/20 01:09 COVID-19/FLU A+B [MOLEC] Urgent 10/15/20 01:28 REFLEX LACTIC ACID YES OR NO [CHEM] Routine 10/15/20 01:44 cefTRIAXone [Rocephin] 1 gm Sodium Chloride 0.9% [Normal Saline] 50 ml IV ONETIME
[2020-10-15] MEDS ORDERED: cefTRIAXone 1 GM in Sodium Chloride 0.9% 50 ML IV ONE (01:44)
--- NOTE | 2020-10-15 02:35 | CR ---
PROCEDURE INFORMATION: Exam: XR Chest Exam date and time: 10/15/2020 1:03 AM Age: 70 years old Clinical indication: Shortness of breath; Additional info: Short of breath TECHNIQUE: Imaging protocol: XR of the chest. Views: 1 view. COMPARISON: No relevant prior studies available. FINDINGS: Tubes, catheters and devices: Right-sided MediPort with tip in the distal superior vena cava. Lungs: Unremarkable. No consolidation. Pleural spaces: Unremarkable. No pleural effusion. No pneumothorax. Heart/Mediastinum: Unremarkable. No cardiomegaly. Bones/joints: Unremarkable. Other findings: Patchy opacities present bilaterally, worse on the right. IMPRESSION: Bilateral pulmonary opacities, worse on the right, concerning for edema versus pneumonia.
[2020-10-15] MEDS ORDERED: Sodium Chloride 0.9% 1,000 ML IV ONE (03:06)
[2020-10-15 03:31] LABS: ALLEN TEST PERFORMED; BASE EXCESS ARTERIAL -13 mmol/L ((-2)-(+3)); BICARBONATE,ARTERIAL 10.5 mmol/L (22-26); O2 DELIVERY DEVICE BIPAP; O2 SATURATION ARTERIAL 93 % (95-100); PCO2 ARTERIAL 20 mmHg (35-45); PO2 ARTERIAL 69 mmHg (70-100)
[2020-10-15 03:58] LABS: CORONAVIRUS COVID-19 NAA NEGATIVE (NEGATIVE)
== END 2020-10-15 03:40 ==
LOC: EDBD → MERGE 00:20 → DL.ED 00:20
DX: J18.9 Pneumonia, unspecified organism (principal); N17.9 Acute kidney failure, unspecified; Z20.822 Contact with and (suspected) exposure to COVID-19
CPT/HCPCS: 0240U; 36415; 36600; 71045; 80053; 82803; 83605; 84484; 85025; 85379; 87040; 93005; 94660; 96365; 99284; 99285-25; J0696; J7030

== ENCOUNTER 2021-04-25 11:38 | Inpatient (IN) | payer MEDICARE ==
[2021-04-25] MEDS ORDERED: Ondansetron 4 MG/2 ML SDV IVPUSH ONE (11:57)
[2021-04-25] MEDS ORDERED: Acetaminophen 500 MG Tab PO ONE (12:00)
[2021-04-25] MEDS ORDERED: Sodium Chloride 0.9% 1,000 ML IV ONE (12:06)
--- NOTE | 2021-04-25 12:20 | EDM.PDOC ---
ED [facility]PI GENERAL MEDICAL PROBLEM - General Chief Complaint: Fever Time Seen by Provider: 04/25/21 12:15 Source of Information: Reports: Patient, EMS History Limitations: Reports: Altered Mental Status - History of Present Illness INITIAL COMMENTS - FREE TEXT/NARRATIVE: 70 y/o M bought in by EMS for fever, sob, ams, vomiting. Pt was brought from home after daughter called 911 as she was concerned about AMS, sob and fever. Unknown how long pt has been sick. Unknown over the counter meds. Pt hx of lung cancer unknown what stage. Pt hx of copd. Unknown if vaccinated against covid. The pts daughter Ashlee informed me via phone that the pts symptoms developed last night and that he had vomited several times at home. The pt is normally not confused and lives at home with his daughter and her two sons. Hx of L side lung cancer and is currently in remission. Was a previous heavy smoker but has quit for two years. Ashlee repors the pt fell dec 1 and since has had trouble moving his R arm and R leg. - Related Data Allergies Allergy/AdvReac Type Severity Reaction Status Date / Time No Known Allergies Allergy Verified 10/16/20 18:59 Home Meds: Home Meds Fluticasone/Vilanterol [Breo Ellipta 200-25 MCG Inhalation Kit] 2 puff INH Q4HR 11/29/18 [History] Albuterol [Proventil Neb Soln] 1 unit INH Q4HR PRN 01/11/19 [History] Albuterol [Ventolin HFA] 18 gm INH Q4HR 01/11/19 [History] OLANZapine [Olanzapine] 10 mg PO DAILY 01/11/19 [History] Ondansetron [Ondansetron ODT] 8 mg PO Q6HR PRN 01/11/19 [History] Prochlorperazine [Compazine] 10 mg PO QID PRN 01/11/19 [History] Zolpidem Tartrate 10 mg PO BEDTIME 01/11/19 [History] Amoxicillin/Potassium Clav [Augmentin 500-125 Tablet] 1 each PO BID 7 Days #14 tablet 01/14/19 [Rx] Melatonin 10 mg PO BEDTIME 06/16/20 [History] Mirtazapine 15 mg PO BEDTIME 06/16/20 [History] Multivitamin with Minerals [Multiple Vitamin] 1 tab PO DAILY 06/16/20 [History] Omeprazole 20 mg PO BID 06/16/20 [History] Rivaroxaban [Xarelto] 15 mg PO WITHDINNER 06/16/20 [History] dexAMETHasone [Dexamethasone] 1 mg PO DAILY 06/16/20 [History] Past Medical History HEENT History: Reports: Impaired Vision Other HEENT History: 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 Respiratory History: Reports: COPD Other Respiratory History: Lung cancer Musculoskeletal History: Reports: Arthritis Hematologic History: Reports: Blood Transfusion(s) Oncologic (Cancer) History: Reports: Lung Other Oncologic History: currently on chemo - Infectious Disease History Infectious Disease History: Reports: Chicken Pox, Measles, Mumps - Past Surgical History HEENT Surgical History: Reports: Eye Surgery Respiratory Surgical History: Reports: None Other Respiratory Surgeries/Procedures: removal of tumors GI Surgical History: Reports: Colonoscopy Social & Family History - Family History Family Medical History: Unobtainable - Tobacco Use Tobacco Use Status *Q: Unknown Ever Used Tobacco - Caffeine Use Caffeine Use: Reports: None, Soda - Living Situation & Occupation Living situation: Reports: , with Family (Lives with daughter) Occupation: Retired ED ROS GENERAL - Review of Systems Review Of Systems: Unable To Obtain Reason Not Obtained: ams ED EXAM, SEPSIS - Physical Exam Exam: See Below Exam Limited By: Altered Mental Status General Appearance: Alert, Moderate Distress (tachypenia, rigors, ams) Eye Exam: Bilateral Eye: PERRL Ears: Normal External Exam, Normal Canal, Hearing Grossly Normal, Normal TMs Nose: Normal Inspection, Normal Mucosa, No Blood Throat/Mouth: Other (tongue dry and furrowed.) Neck: Supple, Non-Tender Respiratory/Chest: Other (Course breath sounds throughout worse over the R lobes. ) Cardiovascular: Tachycardia GI/Abdominal Exam: Soft, Non-Tender (Male) Exam: Deferred Rectal (Males) Exam: Deferred Back: Normal Inspection, Full Range of Motion Extremities: Normal Inspection, Normal Range of Motion, Non-Tender, No Pedal Edema, Normal Capillary Refill Neurological: Alert, Oriented, CN II-XII Intact, Normal Cognition, Normal Gait, Normal Reflexes, No Motor/Sensory Deficits Skin: Other (hot dry, skin tenting) #1 Interpretation EKG Date: 04/25/21 Time: 12:11 Rhythm: Other (sinus tach) Sherwood: LAD-Left Sherwood Deviation P-Wave: Present QRS: Normal ST-T: Normal QT: Normal Course - Vital Signs Last Recorded V/S: Last Vital Signs Temp 101.7 F H 04/25/21 13:27 Pulse 113 H 04/25/21 13:27 Resp 20 04/25/21 12:05 BP 100/51 L 04/25/21 13:27 Pulse Ox 100 04/25/21 13:27 - Orders/Labs/Meds Orders: Active Orders 24 hr Category Date Time Status Central Line Assessment [RC] QSHIFT Care 04/25/21 13:42 Active EKG Documentation Completion [RC] STAT Care 04/25/21 11:57 Active Peripheral IV Care [RC] . DIRECTED Care 04/25/21 11:58 Active CULTURE BLOOD [BC] Stat Lab 04/25/21 12:10 Received CULTURE BLOOD [BC] Stat Lab 04/25/21 12:28 Received REFLEX LACTIC ACID YES OR NO [CHEM] Routine Lab 04/25/21 13:08 Received UA RFX FILI AND CULT IF INDIC [URIN] Stat Lab 04/25/21 11:58 Ordered Sodium Chloride 0.9% [Saline Flush] Med 04/25/21 11:57 Active 10 ml FLUSH ASDIRECTED PRN Blood Culture x2 Reflex Set [OM.PC] Stat Oth 04/25/21 12:00 Ordered Peripheral IV Insertion Adult [OM.PC] Routine Oth 04/25/21 11:58 Ordered Medication Orders Sodium Chloride (Sodium Chloride 0.9% 10 Ml Syringe) 10 ml FLUSH ASDIRECTED PRN PRN Reason: Keep Vein Open Last Admin: 04/25/21 12:37 Dose: 10 ml Documented by: [email or web address] Labs: Laboratory Tests 04/25/21 04/25/21 04/25/21 Range/Units 11:59 12:10 12:10 WBC 8.1 (5.0-10.0) 10^3/uL RBC 4.57 L (4.6-6.2) 10^6/uL Hgb 13.9 L (14.0-18.0) g/dL Hct 40.5 (40.0-54.0) % MCV 88.6 D (80-100) fL MCH 30.4 (27.0-34.0) pg MCHC 34.3 (33.0-35.0) g/dL Plt Count 298 D (150-450) 10^3/uL Neut % (Auto) 65.2 (42.2-75.2) % Lymph % (Auto) 21.7 (20.5-50.1) % [place] % (Auto) 11.9 H (2-8) % Eos % (Auto) 1.0 (1.0-3.0) % Baso % (Auto) 0.2 (0.0-1.0) % ABG pH (7.35-7.45) ABG pCO2 (35-45) mmHg ABG pO2 (70-100) mmHg ABG HCO3 (22-26) mmol/L ABG O2 Saturation (95-100) % ABG Base Excess ((-2)-(+3)) mmol/L Kevin Test O2 Delivery Device Sodium 140 (136-145) mmol/L Potassium 3.8 (3.5-5.1) mmol/L Chloride 103 (98-107) mmol/L Carbon Dioxide 25 D (21-32) mmol/L Anion Gap 15.8 H (7-13) mEq/L BUN 25 H D (7-18) mg/dL Creatinine 1.58 H D (0.70-1.30) mg/dL Est Cr Clr Drug Dosing 48.43 mL/min Estimated GFR (MDRD) 44 BUN/Creatinine Ratio 15.8 (No establ ref range) Glucose 74 (70-99) mg/dL Lactic Acid (0.4-2.0) mmol/L Calcium 8.5 (8.5-10.1) mg/dL Magnesium 1.6 L (1.8-2.4) mg/dL Total Bilirubin 0.5 (0.2-1.0) mg/dL AST 21 (15-37) U/L ALT 15 L (16-63) U/L Alkaline Phosphatase 50 (46-116) U/L B-Natriuretic Peptide (0-100) pg/ml Total Protein 6.1 L (6.4-8.2) g/dL Albumin 3.3 L (3.4-5.0) g/dL Globulin 2.8 Albumin/Globulin Ratio 1.18 Ethyl Alcohol < 3 (0) mg/dL Influenza Type A RNA Positive H (NEGATIVE) Influenza Type B RNA Negative (NEGATIVE) SARS-CoV-2 RNA (NHAN) Negative (NEGATIVE) 04/25/21 04/25/21 04/25/21 Range/Units 12:10 12:10 12:13 WBC (5.0-10.0) 10^3/uL RBC (4.6-6.2) 10^6/uL Hgb (14.0-18.0) g/dL Hct (40.0-54.0) % MCV (80-100) fL MCH (27.0-34.0) pg MCHC (33.0-35.0) g/dL Plt Count (150-450) 10^3/uL Neut % (Auto) (42.2-75.2) % Lymph % (Auto) (20.5-50.1) % [place] % (Auto) (2-8) % Eos % (Auto) (1.0-3.0) % Baso % (Auto) (0.0-1.0) % ABG pH 7.44 (7.35-7.45) ABG pCO2 31 L (35-45) mmHg ABG pO2 56 L (70-100) mmHg ABG HCO3 20.7 L (22-26) mmol/L ABG O2 Saturation 92 L (95-100) % ABG Base Excess -2 ((-2)-(+3)) mmol/L Kevin Test Positive O2 Delivery Device Room air Sodium (136-145) mmol/L Potassium (3.5-5.1) mmol/L Chloride (98-107) mmol/L Carbon Dioxide (21-32) mmol/L Anion Gap (7-13) mEq/L BUN (7-18) mg/dL Creatinine (0.70-1.30) mg/dL Est Cr Clr Drug Dosing mL/min Estimated GFR (MDRD) BUN/Creatinine Ratio (No establ ref range) Glucose (70-99) mg/dL Lactic Acid 2.3 H* (0.4-2.0) mmol/L Calcium (8.5-10.1) mg/dL Magnesium (1.8-2.4) mg/dL Total Bilirubin (0.2-1.0) mg/dL AST (15-37) U/L ALT (16-63) U/L Alkaline Phosphatase (46-116) U/L B-Natriuretic Peptide 352 H (0-100) pg/ml Total Protein (6.4-8.2) g/dL Albumin (3.4-5.0) g/dL Globulin Albumin/Globulin Ratio Ethyl Alcohol (0) mg/dL Influenza Type A RNA (NEGATIVE) Influenza Type B RNA (NEGATIVE) SARS-CoV-2 RNA (NHAN) (NEGATIVE) Meds: Medications Generic Name Dose Route Start Last Admin Trade Name Freq PRN Reason Stop Dose Admin Sodium Chloride 10 ml 04/25/21 11:57 04/25/21 12:37 Sodium Chloride 0.9% 10 Ml Syringe FLUSH 10 ml ASDIRECTED PRN Administration Keep Vein Open Discontinued Medications Generic Name Dose Route Start Last Admin Trade Name Freq PRN Reason Stop Dose Admin Acetaminophen 1,000 mg 04/25/21 12:00 04/25/21 12:37 Acetaminophen 500 Mg Tab PO 04/25/21 12:01 1,000 mg ONETIME ONE Administration Sodium Chloride 1,000 mls @ 999 mls/hr 04/25/21 12:06 04/25/21 12:37 Normal Saline IV 04/25/21 13:06 999 mls/hr .BOLUS ONE Administration Ondansetron HCl 4 mg 04/25/21 11:57 04/25/21 12:00 Ondansetron 4 Mg/2 Ml Sdv IVPUSH 04/25/21 11:58 4 mg ONETIME ONE Administration - Re-Assessments/Exams Free Text/Narrative Re-Assessment/Exam: 04/25/21 14:02 The pt has severe dehydration, lactic acidosis, hypotension and influenza. I discussed the pt with Dr. Mejia who agreed to admit the pt for further treatment. Departure - Departure Time of Disposition: 14:05 (Dr. Mejia) Disposition: Admitted As Inpatient 67 Condition: Fair Clinical Impression: Influenza A, Septic shock, Lactic acidosis, Dehydration - Discharge Information Forms: ED Department Discharge Sepsis Event Note (ED) - Evaluation Sepsis Screening Result: No Definite Risk - Focused Exam Vital Signs: Vital Signs Temp Temp Pulse Resp BP Pulse Ox 04/25/21 13:27 101.7 F H 113 H 100/51 L 100 04/25/21 12:37 102.9 F H 04/25/21 12:36 102.9 F H 113 H 97/49 L 04/25/21 12:05 102.2 F H 119 H 20 51/42 L 100 - My Orders Last 24 Hours: My Active Orders 04/25/21 11:57 EKG Documentation Completion [RC] STAT Sodium Chloride 0.9% [Saline Flush] 10 ml FLUSH ASDIRECTED PRN 04/25/21 11:58 Peripheral IV Care [RC] . DIRECTED UA RFX FILI AND CULT IF INDIC [URIN] Stat Peripheral IV Insertion Adult [OM.PC] Routine 04/25/21 12:00 Blood Culture x2 Reflex Set [OM.PC] Stat 04/25/21 12:10 CULTURE BLOOD [BC] Stat 04/25/21 12:28 CULTURE BLOOD [BC] Stat 04/25/21 13:08 REFLEX LACTIC ACID YES OR NO [CHEM] Routine 04/25/21 13:42 Central Line Assessment [RC] QSHIFT - Assessment/Plan Last 24 Hours: My Active Orders 04/25/21 11:57 EKG Documentation Completion [RC] STAT Sodium Chloride 0.9% [Saline Flush] 10 ml FLUSH ASDIRECTED PRN 04/25/21 11:58 Peripheral IV Care [RC] . DIRECTED UA RFX FILI AND CULT IF INDIC [URIN] Stat Peripheral IV Insertion Adult [OM.PC] Routine 04/25/21 12:00 Blood Culture x2 Reflex Set [OM.PC] Stat 04/25/21 12:10 CULTURE BLOOD [BC] Stat 04/25/21 12:28 CULTURE BLOOD [BC] Stat 04/25/21 13:08 REFLEX LACTIC ACID YES OR NO [CHEM] Routine 04/25/21 13:42 Central Line Assessment [RC] QSHIFT
[2021-04-25] MEDS: Sodium Chloride 0.9% 1,000 ML IV SCH ×2 (12:30→14:00)
[2021-04-25 12:34] LABS: BASE EXCESS ARTERIAL -2 mmol/L ((-2)-(+3)); BICARBONATE,ARTERIAL 20.7 mmol/L (22-26); O2 DELIVERY DEVICE ROOM AIR; O2 SATURATION ARTERIAL 92 % (95-100); PCO2 ARTERIAL 31 mmHg (35-45); PO2 ARTERIAL 56 mmHg (70-100)
[2021-04-25 12:35] LABS: ALLEN TEST POSITIVE
--- NOTE | 2021-04-25 12:36 | CR ---
PROCEDURE INFORMATION: Exam: XR Chest Exam date and time: 04/25/2021 12:04 PM Age: 70 years old Clinical indication: Fever; Additional info: Fever of unknown origin TECHNIQUE: Imaging protocol: XR of the chest. Views: 1 view. COMPARISON: CT Chest wo Cont, Chest wo Cont 07/22/2020 5:49 PM FINDINGS: Tubes, catheters and devices: A right-sided MediPort is present. Lungs: There is mild increase in interstitial markings within the lungs. This is nonspecific. No pneumonia or pulmonary edema is present. Pleural spaces: Unremarkable. No pleural effusion. No pneumothorax. Heart/Mediastinum: Unremarkable. No cardiomegaly. Bones/joints: Unremarkable. IMPRESSION: 1. Mild nonspecific chronic interstitial change. No definite pneumonia or pulmonary edema. 2. Right-sided MediPort present.
[2021-04-25] MEDS: Sodium Chloride 0.9% 10 ML Syringe FLUSH PRN (12:37)
[2021-04-25 12:56] LABS: ANION GAP 15.8 mEq/L (7-13); CHLORIDE,CL 103 mmol/L (98-107); SODIUM,NA 140 mmol/L (136-145)
[2021-04-25 13:21] LABS: CORONAVIRUS COVID-19 NAA NEGATIVE (NEGATIVE)
[2021-04-25] MEDS ORDERED: Albuterol/Ipratropium 3.0-0.5 MG/3 ML Neb Soln NEB ONE (13:56)
[2021-04-25] MEDS ORDERED: Oseltamivir 75 MG Cap PO ONE (14:02)
[2021-04-25] MEDS: Norepinephrine 4 MG in Dextrose 5% in Water 246 ML IV SCH ×4 (14:47→22:39)
[2021-04-25] MEDS ORDERED: Morphine 2 MG/ML SYRINGE IVPUSH PRN (16:22)
[2021-04-25] MEDS ORDERED: Ondansetron 4 MG/2 ML SDV IVPUSH PRN (16:22)
[2021-04-25] MEDS ORDERED: Docusate Sodium 100 MG Cap PO PRN (16:22)
[2021-04-25] MEDS ORDERED: oxyCODONE 5 MG Tab PO PRN (16:22)
[2021-04-25] MEDS ORDERED: Temazepam 15 MG Cap PO PRN (16:22)
[2021-04-25] MEDS: Lactated Ringers 1,000 ML IV SCH ×2 (16:54→23:33)
[2021-04-25] MEDS: Piperacillin/Tazobactam 3.375 GM in Sodium Chloride 0.9% 100 ML IV SCH ×2 (16:56→23:33)
[2021-04-25] MEDS: Acetaminophen 325 MG Tab PO PRN (16:57)
--- NOTE | 2021-04-25 17:01 | PCM.HP ---
H&P History of Present Illness - General Date of Service: 04/25/21 Admit Problem/Dx: Admission Diagnosis/Problem Admission Diagnosis/Problem Influenza Source of Information: Patient - History of Present Illness Initial Comments - Free Text/Narative: Presented with fever, sob, nausea, vomiting. Family had flu type symptoms Information from Daughter Caroline, [phone] Ashlee [phone] h/o hyperglycemia while in hospital h/o low BP since cancer tx., h/o DVT, PE on xarelto, h/o smoking, lung cancer thought to be in remission h/o dexamethasone prn for nausea and appetite h/o anxiety, hallucination, possible dementia according to pt he is not reliably taking meds but using anoro - Related Data Allergies/Adverse Reactions: Allergies Allergy/AdvReac Type Severity Reaction Status Date / Time No Known Allergies Allergy Verified 10/16/20 18:59 Home Medications: Home Meds Fluticasone/Vilanterol [Breo Ellipta 200-25 MCG Inhalation Kit] 2 puff INH Q4HR 11/29/18 [History] Zolpidem Tartrate 10 mg PO BEDTIME 01/11/19 [History] Multivitamin with Minerals [Multiple Vitamin] 1 tab PO DAILY 06/16/20 [History] Omeprazole 20 mg PO BID 06/16/20 [History] Apixaban [Eliquis] 5 mg PO BID 04/25/21 [History] Past Medical History HEENT History: Reports: Impaired Vision Other HEENT History: 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 Respiratory History: Reports: COPD Other Respiratory History: Lung cancer Musculoskeletal History: Reports: Arthritis Hematologic History: Reports: Blood Transfusion(s) Oncologic (Cancer) History: Reports: Lung Other Oncologic History: currently on chemo - Infectious Disease History Infectious Disease History: Reports: Chicken Pox, Measles, Mumps - Past Surgical History HEENT Surgical History: Reports: Eye Surgery Respiratory Surgical History: Reports: None Other Respiratory Surgeries/Procedures: removal of tumors GI Surgical History: Reports: Colonoscopy Social & Family History - Family History Family Medical History: Unobtainable - Tobacco Use Tobacco Use Status *Q: Unknown Ever Used Tobacco - Caffeine Use Caffeine Use: Reports: None, Soda - Living Situation & Occupation Living situation: Reports: , with Family (Lives with daughter) Occupation: Retired H&P Review of Systems - Review of Systems: Review Of Systems: See Below General: Reports: Fever, Chills Pulmonary: Reports: Shortness of Breath, Wheezing Cardiovascular: Reports: Other (hypotension with sbp 80s noted at home). Denies: Chest Pain, Edema Gastrointestinal: Reports: Nausea, Vomiting. Denies: Abdominal Pain Psychiatric: Reports: Confusion Neurological: Reports: Dizziness Exam - Exam Exam: See Below - Vital Signs Vital Signs: Last Vital Signs Temp 101.5 F H 04/25/21 16:57 Pulse 102 H 04/25/21 15:40 Resp 25 H 04/25/21 15:40 BP 87/43 L 04/25/21 15:40 Pulse Ox 96 04/25/21 15:40 Weight: 192 lb - Exam Quality Assessment: Supplemental Oxygen General: Alert, Oriented (to place, ) HEENT: Other (dry mouth ) Neck: Supple Lungs: Wheezing Cardiovascular: Regular Rate, Regular Rhythm, Tachycardia GI/Abdominal Exam: Normal Bowel Sounds, Soft, Non-Tender Extremities: No Pedal Edema - Patient Data Lab Results Last 24 hrs: Laboratory Results - last 24 hr 04/25/21 04/25/21 04/25/21 Range/Units 11:59 12:10 12:10 WBC 8.1 (5.0-10.0) 10^3/uL RBC 4.57 L (4.6-6.2) 10^6/uL Hgb 13.9 L (14.0-18.0) g/dL Hct 40.5 (40.0-54.0) % MCV 88.6 D (80-100) fL MCH 30.4 (27.0-34.0) pg MCHC 34.3 (33.0-35.0) g/dL Plt Count 298 D (150-450) 10^3/uL Neut % (Auto) 65.2 (42.2-75.2) % Lymph % (Auto) 21.7 (20.5-50.1) % Gibson % (Auto) 11.9 H (2-8) % Eos % (Auto) 1.0 (1.0-3.0) % Baso % (Auto) 0.2 (0.0-1.0) % ABG pH (7.35-7.45) ABG pCO2 (35-45) mmHg ABG pO2 (70-100) mmHg ABG HCO3 (22-26) mmol/L ABG O2 Saturation (95-100) % ABG Base Excess ((-2)-(+3)) mmol/L Kevin Test O2 Delivery Device Sodium 140 (136-145) mmol/L Potassium 3.8 (3.5-5.1) mmol/L Chloride 103 (98-107) mmol/L Carbon Dioxide 25 D (21-32) mmol/L Anion Gap 15.8 H (7-13) mEq/L BUN 25 H D (7-18) mg/dL Creatinine 1.58 H D (0.70-1.30) mg/dL Est Cr Clr Drug Dosing 48.43 mL/min Estimated GFR (MDRD) 44 BUN/Creatinine Ratio 15.8 (No establ ref range) Glucose 74 (70-99) mg/dL Lactic Acid (0.4-2.0) mmol/L Calcium 8.5 (8.5-10.1) mg/dL Magnesium 1.6 L (1.8-2.4) mg/dL Total Bilirubin 0.5 (0.2-1.0) mg/dL AST 21 (15-37) U/L ALT 15 L (16-63) U/L Alkaline Phosphatase 50 (46-116) U/L B-Natriuretic Peptide (0-100) pg/ml Total Protein 6.1 L (6.4-8.2) g/dL Albumin 3.3 L (3.4-5.0) g/dL Globulin 2.8 Albumin/Globulin Ratio 1.18 Ethyl Alcohol < 3 (0) mg/dL Influenza Type A RNA Positive H (NEGATIVE) Influenza Type B RNA Negative (NEGATIVE) SARS-CoV-2 RNA (NHAN) Negative (NEGATIVE) 04/25/21 04/25/21 04/25/21 Range/Units 12:10 12:10 12:13 WBC (5.0-10.0) 10^3/uL RBC (4.6-6.2) 10^6/uL Hgb (14.0-18.0) g/dL Hct (40.0-54.0) % MCV (80-100) fL MCH (27.0-34.0) pg MCHC (33.0-35.0) g/dL Plt Count (150-450) 10^3/uL Neut % (Auto) (42.2-75.2) % Lymph % (Auto) (20.5-50.1) % Gibson % (Auto) (2-8) % Eos % (Auto) (1.0-3.0) % Baso % (Auto) (0.0-1.0) % ABG pH 7.44 (7.35-7.45) ABG pCO2 31 L (35-45) mmHg ABG pO2 56 L (70-100) mmHg ABG HCO3 20.7 L (22-26) mmol/L ABG O2 Saturation 92 L (95-100) % ABG Base Excess -2 ((-2)-(+3)) mmol/L Kevin Test Positive O2 Delivery Device Room air Sodium (136-145) mmol/L Potassium (3.5-5.1) mmol/L Chloride (98-107) mmol/L Carbon Dioxide (21-32) mmol/L Anion Gap (7-13) mEq/L BUN (7-18) mg/dL Creatinine (0.70-1.30) mg/dL Est Cr Clr Drug Dosing mL/min Estimated GFR (MDRD) BUN/Creatinine Ratio (No establ ref range) Glucose (70-99) mg/dL Lactic Acid 2.3 H* (0.4-2.0) mmol/L Calcium (8.5-10.1) mg/dL Magnesium (1.8-2.4) mg/dL Total Bilirubin (0.2-1.0) mg/dL AST (15-37) U/L ALT (16-63) U/L Alkaline Phosphatase (46-116) U/L B-Natriuretic Peptide 352 H (0-100) pg/ml Total Protein (6.4-8.2) g/dL Albumin (3.4-5.0) g/dL Globulin Albumin/Globulin Ratio Ethyl Alcohol (0) mg/dL Influenza Type A RNA (NEGATIVE) Influenza Type B RNA (NEGATIVE) SARS-CoV-2 RNA (NHAN) (NEGATIVE) Result Diagrams: 04/25/21 12:10 04/25/21 12:10 - Problem List (1) Cancer of left lung SNOMED Code(s): 661430169 ICD Code: C34.92 - MALIGNANT NEOPLASM OF UNSP PART OF LEFT BRONCHUS OR LUNG Status: Acute Current Visit: No Qualifiers: Lung location: lower lobe of lung Qualified Code(s): C34.32 - Malignant neoplasm of lower lobe, left bronchus or lung (2) Dehydration SNOMED Code(s): 31199998 ICD Code: E86.0 - DEHYDRATION Status: Acute Current Visit: No (3) Influenza A SNOMED Code(s): 819164130 ICD Code: J10.1 - FLU DUE TO OTH IDENT INFLUENZA VIRUS W OTH RESP MANIFEST Status: Acute Current Visit: No (4) Lactic acidosis SNOMED Code(s): 59877332 ICD Code: E87.2 - ACIDOSIS Status: Acute Current Visit: No (5) Lung cancer SNOMED Code(s): 642550000 ICD Code: C34.90 - MALIGNANT NEOPLASM OF UNSP PART OF UNSP BRONCHUS OR LUNG Status: Acute Current Visit: No Qualifiers: Laterality: left Lung location: unspecified part of lung Qualified Code(s): C34.92 - Malignant neoplasm of unspecified part of left bronchus or lung (6) Sepsis associated hypotension SNOMED Code(s): 29606454 ICD Code: A41.9 - SEPSIS, UNSPECIFIED ORGANISM; I95.9 - HYPOTENSION, UNSPECIFIED Status: Acute Current Visit: No (7) Septic shock SNOMED Code(s): 33753456 ICD Code: A41.9 - SEPSIS, UNSPECIFIED ORGANISM; R65.21 - SEVERE SEPSIS WITH SEPTIC SHOCK Status: Acute Current Visit: No Problem List Initiated/Reviewed/Updated: Yes Orders Last 24hrs: Active Orders 24 hr Category Date Time Status Admission Diagnosis [ADT] Stat ADT 04/25/21 14:11 Ordered Admission Status [Patient Status] [ADT] Routine ADT 04/25/21 14:11 Active Garsia Catheter Insertion [Insert Urinary Catheter] [OM. Care 04/25/21 16:30 Ordered PC] Q24H Oxygen Therapy [RC] PRN Care 04/25/21 16:23 Active RT Aerosol Therapy [RC] ASDIRECTED Care 04/25/21 16:18 Active Up With Assistance [RC] ASDIRECTED Care 04/25/21 16:22 Active Urinary Catheter Assessment [RC] ASDIRECTED Care 04/25/21 16:17 Active VTE/DVT Education [RC] PER UNIT ROUTINE Care 04/25/21 16:23 Active Vital Signs [RC] Q4H Care 04/25/21 16:23 Active Regular Diet [DIET] Diet 04/25/21 Dinner Active Chest 1V Frontal [CR] Routine Exams 04/25/21 16:20 Ordered BASIC METABOLIC PANEL,BMP [CHEM] AM Lab 04/26/21 05:11 Ordered BASIC METABOLIC PANEL,BMP [CHEM] AM Lab 04/27/21 05:11 Ordered BASIC METABOLIC PANEL,BMP [CHEM] AM Lab 04/28/21 05:11 Ordered BASIC METABOLIC PANEL,BMP [CHEM] AM Lab 04/29/21 05:11 Ordered BASIC METABOLIC PANEL,BMP [CHEM] AM Lab 04/30/21 05:11 Ordered BASIC METABOLIC PANEL,BMP [CHEM] AM Lab 05/01/21 05:11 Ordered CBC WITH AUTO DIFF [HEME] AM Lab 04/26/21 05:11 Ordered CBC WITH AUTO DIFF [HEME] AM Lab 04/27/21 05:11 Ordered CBC WITH AUTO DIFF [HEME] AM Lab 04/28/21 05:11 Ordered CBC WITH AUTO DIFF [HEME] AM Lab 04/29/21 05:11 Ordered CBC WITH AUTO DIFF [HEME] AM Lab 04/30/21 05:11 Ordered CBC WITH AUTO DIFF [HEME] AM Lab 05/01/21 05:11 Ordered CULTURE BLOOD [BC] Stat Lab 04/25/21 12:10 Received CULTURE BLOOD [BC] Stat Lab 04/25/21 12:28 Received LACTIC ACID [CHEM] Q4H Lab 04/25/21 16:50 Received LACTIC ACID [CHEM] Q4H Lab 04/25/21 20:13 Ordered MAGNESIUM [CHEM] AM Lab 04/26/21 05:11 Ordered MAGNESIUM [CHEM] AM Lab 04/27/21 05:11 Ordered MAGNESIUM [CHEM] AM Lab 04/28/21 05:11 Ordered MAGNESIUM [CHEM] AM Lab 04/29/21 05:11 Ordered MAGNESIUM [CHEM] AM Lab 04/30/21 05:11 Ordered PHOSPHORUS [CHEM] AM Lab 04/26/21 05:11 Ordered PHOSPHORUS [CHEM] AM Lab 04/27/21 05:11 Ordered PHOSPHORUS [CHEM] AM Lab 04/28/21 05:11 Ordered PHOSPHORUS [CHEM] AM Lab 04/29/21 05:11 Ordered PHOSPHORUS [CHEM] AM Lab 04/30/21 05:11 Ordered PROCALCITONIN [REF] Routine Lab 04/25/21 16:50 Received TROPONIN I HIGH SENSITIVITY [CHEM] AM Lab 04/26/21 05:11 Ordered UA RFX FILI AND CULT IF INDIC [URIN] Stat Lab 04/25/21 11:58 Ordered Acetaminophen [TylenoL] Med 04/25/21 16:22 Active 650 mg PO Q4H PRN Albuterol/Ipratropium [DuoNeb 3.0-0.5 MG/3 ML] Med 04/25/21 16:18 Active 3 ml NEB Q2H PRN Albuterol/Ipratropium [DuoNeb 3.0-0.5 MG/3 ML] Med 04/25/21 18:00 Active 3 ml NEB Q6HRRT Apixaban [Eliquis] Med 04/25/21 21:00 Ordered 5 mg PO BID Budesonide [Pulmicort] Med 04/25/21 18:00 Active 0.5 mg NEB BIDRT Docusate Sodium [Colace] Med 04/25/21 16:22 Active 100 mg PO BID PRN Lactated Ringers [Ringers, Lactated] 1,000 ml Med 04/25/21 16:30 Active IV ASDIRECTED Morphine Med 04/25/21 16:22 Active 1 mg IVPUSH Q2H PRN Multivitamin with Minerals [Multiple Vitamin] Med 04/26/21 09:00 Ordered 1 tab PO DAILY Norepinephrine [Levophed] 4 mg Med 04/25/21 14:15 Active Dextrose 5% in Water 246 ml IV TITRATE Omeprazole Med 04/25/21 21:00 Ordered 20 mg PO BID Ondansetron [Zofran] Med 04/25/21 16:22 Active 4 mg IVPUSH Q4H PRN Oseltamivir [Tamiflu] Med 04/26/21 09:00 Ordered 75 mg PO BID Piperacillin/Tazobactam [Zosyn] 3.375 gm Med 04/25/21 16:00 Active Sodium Chloride 0.9% [Normal Saline AdvBag] 100 ml IV Q8H Sodium Chloride 0.9% [Normal Saline] 1,000 ml Med 04/25/21 12:00 Active IV ASDIRECTED Sodium Chloride 0.9% [Saline Flush] Med 04/25/21 11:57 Active 10 ml FLUSH ASDIRECTED PRN Temazepam [Restoril] Med 04/25/21 16:22 Active 15 mg PO BEDTIME PRN methylPREDNISolone Sod Succ [Solu-MEDROL] Med 04/25/21 17:00 Active 40 mg IVPUSH Q8H oxyCODONE Med 04/25/21 16:22 Active 5 mg PO Q4H PRN Blood Culture x2 Reflex Set [OM.PC] Stat Oth 04/25/21 12:00 Ordered Peripheral IV Insertion Adult [OM.PC] Routine Oth 04/25/21 11:58 Ordered Resuscitation Status Routine Resus Stat 04/25/21 16:22 Ordered Medication Orders Acetaminophen (Acetaminophen 325 Mg Tab) 650 mg PO Q4H PRN PRN Reason: Pain (Mild 1-3)/fever Last Admin: 04/25/21 16:57 Dose: 650 mg Documented by: CAROLYNE Albuterol/Ipratropium (Albuterol/Ipratropium 3.0-0.5 Mg/3 Ml Neb Soln) 3 ml NEB Q6HRRT [place] Albuterol/Ipratropium (Albuterol/Ipratropium 3.0-0.5 Mg/3 Ml Neb Soln) 3 ml NEB Q2H PRN PRN Reason: sob, wheezing Apixaban (Apixaban 5 Mg Tab) 5 mg PO BID [place] Budesonide (Budesonide 0.5 Mg/2 Ml Neb Susp) 0.5 mg NEB BIDRT [place] Docusate Sodium (Docusate Sodium 100 Mg Cap) 100 mg PO BID PRN PRN Reason: Constipation Norepinephrine Bitartrate 4 mg (/ Dextrose/Water) 250 mls @ 15 mls/hr IV TITRATE [place]; Protocol Last Titration: 04/25/21 16:20 Dose: 8 mcg/min, 30 mls/hr Documented by: Titration: 04/25/21 16:06 Dose: 7 mcg/min, 26.25 mls/hr Documented by: Titration: 04/25/21 16:01 Dose: 6 mcg/min, 22.5 mls/hr Documented by: Titration: 04/25/21 15:43 Dose: 5 mcg/min, 18.75 mls/hr Documented by: Admin: 04/25/21 14:47 Dose: 4 mcg/min, 15 mls/hr Documented by: [id number] Sodium Chloride (Normal Saline) 1,000 mls @ 999 mls/hr IV ASDIRECTED [facility] Last Admin: 04/25/21 14:00 Dose: 999 mls/hr Documented by: JOSE DE JESUS Infusion: 04/25/21 13:31 Dose: 999 mls/hr Documented by: JOSE DE JESUS Admin: 04/25/21 12:30 Dose: 999 mls/hr Documented by: JOSE DE JESUS Piperacillin Sod/Tazobactam (Sod 3.375 gm/ Sodium Chloride) 100 mls @ 200 mls/hr IV Q8H [facility] Last Admin: 04/25/21 16:56 Dose: 200 mls/hr Documented by: CAROLYNE Lactated Ringer's (Ringers, Lactated) 1,000 mls @ 150 mls/hr IV ASDIRECTED [facility] Last Admin: 04/25/21 16:54 Dose: 150 mls/hr Documented by: CAROLYNE Methylprednisolone Sodium Succinate (Methylprednisolone Sodium Succinate 40 Mg/1 Ml Sdv) 40 mg IVPUSH Q8H [facility] Morphine Sulfate (Morphine 2 Mg/Ml Syringe) 1 mg IVPUSH Q2H PRN PRN Reason: Pain (severe 7-10) Non-Formulary Medication (Multivitamin With Minerals [Multiple Vitamin]) 1 tab PO DAILY [facility] Omeprazole (Omeprazole 20 Mg Cap.Cr) 20 mg PO BID [place] Ondansetron HCl (Ondansetron 4 Mg/2 Ml Sdv) 4 mg IVPUSH Q4H PRN PRN Reason: Nausea/Vomiting Oseltamivir Phosphate (Oseltamivir 75 Mg Cap) 75 mg PO BID [facility] Oxycodone HCl (Oxycodone 5 Mg Tab) 5 mg PO Q4H PRN PRN Reason: Pain (moderate 4-6) Sodium Chloride (Sodium Chloride 0.9% 10 Ml Syringe) 10 ml FLUSH ASDIRECTED PRN PRN Reason: Keep Vein Open Last Admin: 04/25/21 12:37 Dose: 10 ml Documented by: JOSE DE JESUS Temazepam (Temazepam 15 Mg Cap) 15 mg PO BEDTIME PRN PRN Reason: Sleep Assessment/Plan Comment:: Presented with fever, sob, nausea, vomiting. Family had flu type symptoms Information from Daughter Caroline, [phone], [place] [phone] h/o hyperglycemia while in hospital h/o low BP since cancer tx., h/o DVT, PE on xarelto, h/o smoking, lung cancer thought to be in remission h/o dexamethasone prn for nausea and appetite h/o anxiety, hallucination, possible dementia according to pt he is not reliably taking meds but using anoro presented with 2 days h/o nausea, vomiting, diarrhea daughter noted confusion in er noted to have hypotension, dry mouth, wheezing, fever, tachycardia labs were significant for elevated lactate, was given 3 l IVF bolus Influenza Will use Tamiflu Check procalcitonin level Blood cx pending Urine cx pending Cxr: mild non specific change, no infiltrate or chf Will add zosyn for potential bacterial superinfection until procal is resulted Repeat cxr in am Viral sepsis With tachycardia, hypotension, high fever Trend lactic acid Symptomatic treatment Hydrate well Dehydration due to viral infection With h/o CKD Will hydrate, Try to balance fluid between chf, ckd, dehydration, hypotension Hypotension Likely due to severe sepsis, dehydration Will place garsia cath to monitor uo Give IVF Levophed as needed can use port Acute copd exacerbation wheezing treat with pulmicort, duoneb [place] and as needed h/o dvt, PE cont apixaban the patients condition has been critical, immediate threat to life with h ypotension attempted to transfer to higher level of care with critical care staff availability no icu bed available critical care time spent with patient was more than 70 min
[2021-04-25] MEDS: Albuterol/Ipratropium 3.0-0.5 MG/3 ML Neb Soln NEB SCH (17:27)
[2021-04-25] MEDS: methylPREDNISolone Sodium Succinate 40 MG/1 ML SDV IVPUSH SCH (17:27)
[2021-04-25] MEDS: Budesonide 0.5 MG/2 ML Neb Susp NEB SCH (17:27)
[2021-04-25] MEDS: Apixaban 5 MG Tab PO SCH (21:18)
[2021-04-25] MEDS: Albuterol/Ipratropium 3.0-0.5 MG/3 ML Neb Soln NEB PRN (21:23)
[2021-04-25] MEDS ORDERED: Heparin Sodium 5,000 Units/ML Vial SUBCUT SCH (22:00)
[2021-04-26] MEDS: Sodium Chloride 0.9% 10 ML Syringe FLUSH PRN ×3 (00:13→16:42)
[2021-04-26] MEDS: Albuterol/Ipratropium 3.0-0.5 MG/3 ML Neb Soln NEB SCH ×4 (00:13→17:43)
[2021-04-26] MEDS: methylPREDNISolone Sodium Succinate 40 MG/1 ML SDV IVPUSH SCH ×3 (00:13→16:43)
[2021-04-26] MEDS: Norepinephrine 4 MG in Dextrose 5% in Water 246 ML IV SCH ×4 (05:34→13:11)
[2021-04-26] MEDS: Acetaminophen 325 MG Tab PO PRN (05:34)
[2021-04-26] MEDS ORDERED: Omeprazole 20 MG Cap.CR PO SCH (06:00)
[2021-04-26] MEDS: Lactated Ringers 1,000 ML IV SCH ×2 (06:09→13:05)
[2021-04-26 07:17] LABS: ANION GAP 18.1 mEq/L (7-13)
--- NOTE | 2021-04-26 08:38 | CR ---
PROCEDURE INFORMATION: Exam: XR Chest Exam date and time: 04/26/2021 8:27 AM Age: 70 years old Clinical indication: Shortness of breath; Additional info: SOB TECHNIQUE: Imaging protocol: XR of the chest. Views: 1 view. COMPARISON: CR Chest 1V Frontal 04/25/2021 12:04 PM FINDINGS: Tubes, catheters and devices: Right chest MediPort. Lungs: Stable bilateral perihilar reticulonodular opacities. Pleural spaces: Unremarkable. No pleural effusion. No pneumothorax. Heart/Mediastinum: Unremarkable. No cardiomegaly. Vasculature: Mild atherosclerotic disease of the thoracic aorta. Bones/joints: Unremarkable. IMPRESSION: No interval change.
[2021-04-26] MEDS: Piperacillin/Tazobactam 3.375 GM in Sodium Chloride 0.9% 100 ML IV SCH ×3 (08:56→23:57)
[2021-04-26] MEDS: Oseltamivir 30 MG Cap PO SCH ×2 (08:57→21:22)
[2021-04-26] MEDS: Apixaban 5 MG Tab PO SCH ×2 (08:58→21:22)
[2021-04-26] MEDS: Multivitamin Tab PO SCH (08:59)
[2021-04-26] MEDS ORDERED: Oseltamivir 75 MG Cap PO SCH (09:00)
[2021-04-26] MEDS: Budesonide 0.5 MG/2 ML Neb Susp NEB SCH ×2 (10:48→17:43)
[2021-04-26] MEDS ORDERED: 50% Dextrose in Water 50 ML Syringe IVPUSH PRN (13:50)
--- NOTE | 2021-04-26 13:57 | PCM.PN ---
- General Info Date of Service: 04/26/21 Admission Dx/Problem (Free Text): Admission Diagnosis/Problem Admission Diagnosis/Problem Influenza Subjective Update: feeling better has remained on Levophed overnight sob is better, no associated cough or sputum no abd pain Functional Status: Reports: Pain Controlled, Tolerating Diet - Review of Systems General: Reports: Fever Pulmonary: Reports: Shortness of Breath (improved) Cardiovascular: Denies: Chest Pain, Edema Gastrointestinal: Denies: Abdominal Pain Neurological: Denies: Confusion - Patient Data Vitals - Most Recent: Last Vital Signs Temp 98.1 F 04/26/21 11:54 Pulse 76 04/26/21 11:54 Resp 23 H 04/26/21 11:54 BP 110/59 L 04/26/21 11:54 Pulse Ox 96 04/26/21 11:54 Weight - Most Recent: 192 lb 4.8 oz I&O - Last 24 Hours: Intake & Output 04/25/21 04/26/21 04/26/21 22:59 06:59 14:59 Intake Total 408 2654 560 Output Total 275 1775 Balance 133 879 560 Lab Results Last 24 Hours: Laboratory Results - last 24 hr 04/25/21 04/25/21 04/26/21 Range/Units 16:50 20:20 06:36 WBC 13.6 H (5.0-10.0) 10^3/uL RBC 4.17 L (4.6-6.2) 10^6/uL Hgb 12.6 L (14.0-18.0) g/dL Hct 37.3 L (40.0-54.0) % MCV 89.4 (80-100) fL MCH 30.2 (27.0-34.0) pg MCHC 33.8 (33.0-35.0) g/dL Plt Count 287 (150-450) 10^3/uL Neut % (Auto) 94.1 H (42.2-75.2) % Lymph % (Auto) 4.0 L (20.5-50.1) % [place] % (Auto) 1.8 L (2-8) % Eos % (Auto) 0.0 L (1.0-3.0) % Baso % (Auto) 0.1 (0.0-1.0) % Add Manual Diff Yes Neutrophils % (Manual) 92 H (42-75) % Lymphocytes % (Manual) 5 L (20-50) % Monocytes % (Manual) 3 (2-8) % Sodium (136-145) mmol/L Potassium (3.5-5.1) mmol/L Chloride (98-107) mmol/L Carbon Dioxide (21-32) mmol/L Anion Gap (7-13) mEq/L BUN (7-18) mg/dL Creatinine (0.70-1.30) mg/dL Est Cr Clr Drug Dosing mL/min Estimated GFR (MDRD) Glucose (70-99) mg/dL Lactic Acid 0.7 1.8 (0.4-2.0) mmol/L Calcium (8.5-10.1) mg/dL Phosphorus (2.6-4.7) mg/dL Magnesium (1.8-2.4) mg/dL Troponin I High Sens (<=76) pg/mL 04/26/21 Range/Units 06:36 WBC (5.0-10.0) 10^3/uL RBC (4.6-6.2) 10^6/uL Hgb (14.0-18.0) g/dL Hct (40.0-54.0) % MCV (80-100) fL MCH (27.0-34.0) pg MCHC (33.0-35.0) g/dL Plt Count (150-450) 10^3/uL Neut % (Auto) (42.2-75.2) % Lymph % (Auto) (20.5-50.1) % [place] % (Auto) (2-8) % Eos % (Auto) (1.0-3.0) % Baso % (Auto) (0.0-1.0) % Add Manual Diff Neutrophils % (Manual) (42-75) % Lymphocytes % (Manual) (20-50) % Monocytes % (Manual) (2-8) % Sodium 137 (136-145) mmol/L Potassium 4.1 (3.5-5.1) mmol/L Chloride 103 (98-107) mmol/L Carbon Dioxide 20 L (21-32) mmol/L Anion Gap 18.1 H (7-13) mEq/L BUN 23 H (7-18) mg/dL Creatinine 1.66 H (0.70-1.30) mg/dL Est Cr Clr Drug Dosing 40.63 mL/min Estimated GFR (MDRD) 41 Glucose 205 H (70-99) mg/dL Lactic Acid (0.4-2.0) mmol/L Calcium 8.1 L (8.5-10.1) mg/dL Phosphorus 3.7 (2.6-4.7) mg/dL Magnesium 1.5 L (1.8-2.4) mg/dL Troponin I High Sens 12 (<=76) pg/mL [place] Results Last 24 Hours: Microbiology 04/25/21 12:28 Aerobic Blood Culture - Preliminary Blood - Arm, Left NO GROWTH AFTER 1 DAY Anaerobic Blood Culture - Preliminary NO GROWTH AFTER 1 DAY 04/25/21 12:10 Aerobic Blood Culture - Preliminary Blood - Port-A-Cath NO GROWTH AFTER 1 DAY Anaerobic Blood Culture - Preliminary NO GROWTH AFTER 1 DAY Med Orders - Current: Current Medications Acetaminophen (Acetaminophen 325 Mg Tab) 650 mg PO Q4H PRN PRN Reason: Pain (Mild 1-3)/fever Last Admin: 04/26/21 05:34 Dose: 650 mg Documented by: Albuterol/Ipratropium (Albuterol/Ipratropium 3.0-0.5 Mg/3 Ml Neb Soln) 3 ml NEB Q6HRRT [facility] Last Admin: 04/26/21 10:48 Dose: 3 ml Documented by: Albuterol/Ipratropium (Albuterol/Ipratropium 3.0-0.5 Mg/3 Ml Neb Soln) 3 ml NEB Q2H PRN PRN Reason: sob, wheezing Last Admin: 04/25/21 21:23 Dose: 3 ml Documented by: Apixaban (Apixaban 5 Mg Tab) 5 mg PO BID [facility] Last Admin: 04/26/21 08:58 Dose: 5 mg Documented by: Budesonide (Budesonide 0.5 Mg/2 Ml Neb Susp) 0.5 mg NEB BIDRT [facility] Last Admin: 04/26/21 10:48 Dose: 0.5 mg Documented by: Dextrose/Water (50% Dextrose In Water 50 Ml Syringe) 25 ml IVPUSH ASDIRECTED PRN PRN Reason: Hypoglycemia BS<70 Docusate Sodium (Docusate Sodium 100 Mg Cap) 100 mg PO BID PRN PRN Reason: Constipation Norepinephrine Bitartrate 4 mg (/ Dextrose/Water) 250 mls @ 15 mls/hr IV TITRATE [facility]; Protocol Last Admin: 04/26/21 13:11 Dose: 7 mcg/min, 26.25 mls/hr Documented by: Piperacillin Sod/Tazobactam (Sod 3.375 gm/ Sodium Chloride) 100 mls @ 200 mls/hr IV Q8H [facility] Last Admin: 04/26/21 08:56 Dose: 200 mls/hr Documented by: Lactated Ringer's (Ringers, Lactated) 1,000 mls @ 150 mls/hr IV ASDIRECTED [facility] Last Admin: 04/26/21 13:05 Dose: 150 mls/hr Documented by: Insulin Human Lispro (Insulin Lispro 100 Units/Ml 3 Ml Vial) 0 unit SUBCUT WITHMEALSANDBED [facility]; Protocol Magnesium Oxide (Magnesium Oxide 250 Mg Tab) 500 mg PO Q6H [facility] Stop: 04/26/21 20:01 Methylprednisolone Sodium Succinate (Methylprednisolone Sodium Succinate 40 Mg/1 Ml Sdv) 40 mg IVPUSH Q8H [facility] Last Admin: 04/26/21 08:50 Dose: 40 mg Documented by: Morphine Sulfate (Morphine 2 Mg/Ml Syringe) 1 mg IVPUSH Q2H PRN PRN Reason: Pain (severe 7-10) Multivitamins/Minerals/Vitamin C (Multivitamin Tab) 1 tab PO DAILY [facility] Last Admin: 04/26/21 08:59 Dose: 1 tab Documented by: Omeprazole (Omeprazole 20 Mg Cap.Cr) 20 mg PO ACBREAKFAST [facility] Last Admin: 04/26/21 05:34 Dose: 20 mg Documented by: Ondansetron HCl (Ondansetron 4 Mg/2 Ml Sdv) 4 mg IVPUSH Q4H PRN PRN Reason: Nausea/Vomiting Oseltamivir Phosphate (Oseltamivir 30 Mg Cap) 30 mg PO BID [facility] Last Admin: 04/26/21 08:57 Dose: 30 mg Documented by: Oxycodone HCl (Oxycodone 5 Mg Tab) 5 mg PO Q4H PRN PRN Reason: Pain (moderate 4-6) Sodium Chloride (Sodium Chloride 0.9% 10 Ml Syringe) 10 ml FLUSH ASDIRECTED PRN PRN Reason: Keep Vein Open Last Admin: 04/26/21 05:35 Dose: 10 ml Documented by: Temazepam (Temazepam 15 Mg Cap) 15 mg PO BEDTIME PRN PRN Reason: Sleep Discontinued Medications Acetaminophen (Acetaminophen 500 Mg Tab) 1,000 mg PO ONETIME ONE Stop: 04/25/21 12:01 Last Admin: 04/25/21 12:37 Dose: 1,000 mg Documented by: Albuterol/Ipratropium (Albuterol/Ipratropium 3.0-0.5 Mg/3 Ml Neb Soln) 3 ml NEB ONETIME ONE Stop: 04/25/21 13:57 Last Admin: 04/25/21 14:16 Dose: 3 ml Documented by: Heparin Sodium (Porcine) (Heparin Sodium 5,000 Units/Ml Vial) 5,000 units SUBCUT Q8HR [place] Sodium Chloride (Normal Saline) 1,000 mls @ 999 mls/hr IV .BOLUS ONE Stop: 04/25/21 13:06 Last Admin: 04/25/21 12:37 Dose: 999 mls/hr Documented by: Sodium Chloride (Normal Saline) 1,000 mls @ 999 mls/hr IV ASDIRECTED [facility] Last Admin: 04/25/21 14:00 Dose: 999 mls/hr Documented by: Ondansetron HCl (Ondansetron 4 Mg/2 Ml Sdv) 4 mg IVPUSH ONETIME ONE Stop: 04/25/21 11:58 Last Admin: 04/25/21 12:00 Dose: 4 mg Documented by: Oseltamivir Phosphate (Oseltamivir 75 Mg Cap) 75 mg PO ONETIME ONE Stop: 04/25/21 14:03 Last Admin: 04/25/21 14:22 Dose: 75 mg Documented by: Oseltamivir Phosphate (Oseltamivir 75 Mg Cap) 75 mg PO BID [place] - Exam Quality Assessment: Supplemental Oxygen General: Alert, Oriented Neck: Supple Lungs: Normal Respiratory Effort, Wheezing Cardiovascular: Regular Rate, Regular Rhythm GI/Abdominal Exam: Normal Bowel Sounds, Soft, Non-Tender Extremities: No Pedal Edema - Patient Data Lab Results Last 24 hrs: Laboratory Results - last 24 hr 04/25/21 04/25/21 04/26/21 Range/Units 16:50 20:20 06:36 WBC 13.6 H (5.0-10.0) 10^3/uL RBC 4.17 L (4.6-6.2) 10^6/uL Hgb 12.6 L (14.0-18.0) g/dL Hct 37.3 L (40.0-54.0) % MCV 89.4 (80-100) fL MCH 30.2 (27.0-34.0) pg MCHC 33.8 (33.0-35.0) g/dL Plt Count 287 (150-450) 10^3/uL Neut % (Auto) 94.1 H (42.2-75.2) % Lymph % (Auto) 4.0 L (20.5-50.1) % [place] % (Auto) 1.8 L (2-8) % Eos % (Auto) 0.0 L (1.0-3.0) % Baso % (Auto) 0.1 (0.0-1.0) % Add Manual Diff Yes Neutrophils % (Manual) 92 H (42-75) % Lymphocytes % (Manual) 5 L (20-50) % Monocytes % (Manual) 3 (2-8) % Sodium (136-145) mmol/L Potassium (3.5-5.1) mmol/L Chloride (98-107) mmol/L Carbon Dioxide (21-32) mmol/L Anion Gap (7-13) mEq/L BUN (7-18) mg/dL Creatinine (0.70-1.30) mg/dL Est Cr Clr Drug Dosing mL/min Estimated GFR (MDRD) Glucose (70-99) mg/dL Lactic Acid 0.7 1.8 (0.4-2.0) mmol/L Calcium (8.5-10.1) mg/dL Phosphorus (2.6-4.7) mg/dL Magnesium (1.8-2.4) mg/dL Troponin I High Sens (<=76) pg/mL 04/26/21 Range/Units 06:36 WBC (5.0-10.0) 10^3/uL RBC (4.6-6.2) 10^6/uL Hgb (14.0-18.0) g/dL Hct (40.0-54.0) % MCV (80-100) fL MCH (27.0-34.0) pg MCHC (33.0-35.0) g/dL Plt Count (150-450) 10^3/uL Neut % (Auto) (42.2-75.2) % Lymph % (Auto) (20.5-50.1) % [place] % (Auto) (2-8) % Eos % (Auto) (1.0-3.0) % Baso % (Auto) (0.0-1.0) % Add Manual Diff Neutrophils % (Manual) (42-75) % Lymphocytes % (Manual) (20-50) % Monocytes % (Manual) (2-8) % Sodium 137 (136-145) mmol/L Potassium 4.1 (3.5-5.1) mmol/L Chloride 103 (98-107) mmol/L Carbon Dioxide 20 L (21-32) mmol/L Anion Gap 18.1 H (7-13) mEq/L BUN 23 H (7-18) mg/dL Creatinine 1.66 H (0.70-1.30) mg/dL Est Cr Clr Drug Dosing 40.63 mL/min Estimated GFR (MDRD) 41 Glucose 205 H (70-99) mg/dL Lactic Acid (0.4-2.0) mmol/L Calcium 8.1 L (8.5-10.1) mg/dL Phosphorus 3.7 (2.6-4.7) mg/dL Magnesium 1.5 L (1.8-2.4) mg/dL Troponin I High Sens 12 (<=76) pg/mL Result Diagrams: 04/26/21 06:36 04/26/21 06:36 [place]y Results Last 24 hrs: Microbiology 04/25/21 12:28 Aerobic Blood Culture - Preliminary Blood - Arm, Left NO GROWTH AFTER 1 DAY Anaerobic Blood Culture - Preliminary NO GROWTH AFTER 1 DAY 04/25/21 12:10 Aerobic Blood Culture - Preliminary Blood - Port-A-Cath NO GROWTH AFTER 1 DAY Anaerobic Blood Culture - Preliminary NO GROWTH AFTER 1 DAY Sepsis Event Note - Evaluation Sepsis Screening Result: No Definite Risk - Focused Exam Vital Signs: Vital Signs Temp Pulse Resp BP BP Pulse Ox 04/26/21 11:54 98.1 F 76 23 H 110/59 L 96 04/26/21 07:42 97.8 F 75 15 116/58 L 97 04/26/21 06:20 62 121/58 L 04/26/21 06:10 63 116/59 L 04/26/21 06:00 64 125/61 01/09/22 05:50 64 124/63 04/26/21 05:40 40 L 100/67 04/26/21 05:30 66 121/63 04/26/21 05:10 65 115/64 04/26/21 05:00 68 117/58 L 04/26/21 04:50 66 111/65 04/26/21 04:40 66 118/63 04/26/21 04:30 64 123/59 L 04/26/21 04:20 69 118/64 04/26/21 04:11 98.7 F 80 22 H 118/63 95 04/26/21 03:50 76 111/65 04/26/21 03:40 69 119/61 04/26/21 03:30 78 111/63 04/26/21 03:20 70 117/63 04/26/21 03:10 76 119/66 04/26/21 03:00 85 104/69 95 04/26/21 02:51 82 115/58 L 04/26/21 02:40 79 116/52 L 04/26/21 02:20 79 124/61 04/26/21 02:10 74 111/58 L 04/26/21 02:02 98.6 F 77 24 H 115/58 L 96 - Problem List & Annotations (1) Cancer of left lung SNOMED Code(s): 063596655 Code(s): C34.92 - MALIGNANT NEOPLASM OF UNSP PART OF LEFT BRONCHUS OR LUNG Status: Acute Current Visit: No Qualifiers: Lung location: lower lobe of lung Qualified Code(s): C34.32 - Malignant neoplasm of lower lobe, left bronchus or lung (2) Dehydration SNOMED Code(s): 11249338 Code(s): E86.0 - DEHYDRATION Status: Acute Current Visit: No (3) Influenza A SNOMED Code(s): 290145692 Code(s): J10.1 - FLU DUE TO OTH IDENT INFLUENZA VIRUS W OTH RESP MANIFEST Status: Acute Current Visit: No (4) Lactic acidosis SNOMED Code(s): 20658953 Code(s): E87.2 - ACIDOSIS Status: Acute Current Visit: No (5) Lung cancer SNOMED Code(s): 396390611 Code(s): C34.90 - MALIGNANT NEOPLASM OF UNSP PART OF UNSP BRONCHUS OR LUNG Status: Acute Current Visit: No Qualifiers: Laterality: left Lung location: unspecified part of lung Qualified Code(s): C34.92 - Malignant neoplasm of unspecified part of left bronchus or lung (6) Sepsis associated hypotension SNOMED Code(s): 76690532 Code(s): A41.9 - SEPSIS, UNSPECIFIED ORGANISM; I95.9 - HYPOTENSION, UNSPECIFIED Status: Acute Current Visit: No (7) Septic shock SNOMED Code(s): 58041346 Code(s): A41.9 - SEPSIS, UNSPECIFIED ORGANISM; R65.21 - SEVERE SEPSIS WITH SEPTIC SHOCK Status: Acute Current Visit: No - Problem List Review Problem List Initiated/Reviewed/Updated: Yes - My Orders Last 24 Hours: My Active Orders 04/25/21 16:00 Piperacillin/Tazobactam [Zosyn] 3.375 gm Sodium Chloride 0.9% [Normal Saline AdvBag] 100 ml IV Q8H 04/25/21 16:17 Urinary Catheter Assessment [RC] 04/25/21 16:18 RT Aerosol Therapy [RC] ,,,18 Albuterol/Ipratropium [DuoNeb 3.0-0.5 MG/3 ML] 3 ml NEB Q2H PRN 04/25/21 16:22 Up With Assistance [RC] 10 Acetaminophen [TylenoL] 650 mg PO Q4H PRN Docusate Sodium [Colace] 100 mg PO BID PRN Morphine 1 mg IVPUSH Q2H PRN Ondansetron [Zofran] 4 mg IVPUSH Q4H PRN Temazepam [Restoril] 15 mg PO BEDTIME PRN oxyCODONE 5 mg PO Q4H PRN Resuscitation Status Routine 04/25/21 16:23 Oxygen Therapy [RC] PRN VTE/DVT Education [RC] PER UNIT ROUTINE Vital Signs [RC] 00,04,08,12,16,20 04/25/21 16:30 Wall Catheter Insertion [Insert Urinary Catheter] [OM.PC] Q24H Lactated Ringers [Ringers, Lactated] 1,000 ml IV ASDIRECTED 04/25/21 16:50 PROCALCITONIN [REF] Routine 04/25/21 17:00 methylPREDNISolone Sod Succ [Solu-MEDROL] 40 mg IVPUSH Q8H 04/25/21 Dinner Regular Diet [DIET] 04/25/21 18:00 Albuterol/Ipratropium [DuoNeb 3.0-0.5 MG/3 ML] 3 ml NEB Q6HRRT Budesonide [Pulmicort] 0.5 mg NEB BIDRT 04/25/21 21:00 Apixaban [Eliquis] 5 mg PO BID 04/26/21 06:00 Omeprazole 20 mg PO ACBREAKFAST 04/26/21 09:00 Multivitamins [Tab-A-Danya] 1 tab PO DAILY Oseltamivir [Tamiflu] 30 mg PO BID 04/26/21 13:50 Blood Glucose Check, Bedside [RC] WITHMEALSANDBED Dextrose 50% in Water 25 ml IVPUSH ASDIRECTED PRN 04/26/21 14:00 Magnesium Oxide 500 mg PO Q6H 04/26/21 18:00 Insulin Lispro [HumaLOG] See Protocol SUBCUT WITHMEALSANDBED 04/27/21 05:11 BASIC METABOLIC PANEL,BMP [CHEM] AM CBC WITH AUTO DIFF [HEME] AM MAGNESIUM [CHEM] AM PHOSPHORUS [CHEM] AM 04/28/21 05:11 BASIC METABOLIC PANEL,BMP [CHEM] AM CBC WITH AUTO DIFF [HEME] AM MAGNESIUM [CHEM] AM PHOSPHORUS [CHEM] AM 04/29/21 05:11 BASIC METABOLIC PANEL,BMP [CHEM] AM CBC WITH AUTO DIFF [HEME] AM MAGNESIUM [CHEM] AM PHOSPHORUS [CHEM] AM 04/30/21 05:11 BASIC METABOLIC PANEL,BMP [CHEM] AM CBC WITH AUTO DIFF [HEME] AM MAGNESIUM [CHEM] AM PHOSPHORUS [CHEM] AM 05/01/21 05:11 BASIC METABOLIC PANEL,BMP [CHEM] AM CBC WITH AUTO DIFF [HEME] AM - Plan Plan:: Presented with fever, sob, nausea, vomiting. Family had flu type symptoms Information from Daughter Caroline, [phone], Ashlee [phone] h/o hyperglycemia while in hospital h/o low BP since cancer tx., h/o DVT, PE on xarelto, h/o smoking, lung cancer thought to be in remission h/o dexamethasone prn for nausea and appetite h/o anxiety, hallucination, possible dementia presented with 2 days h/o nausea, vomiting, diarrhea daughter noted confusion in er noted to have hypotension, dry mouth, wheezing, fever, tachycardia labs were significant for elevated lactate, was given 3 l IVF bolus overnight improved mentation he is feeling better he remained on levophed infused via port, remained on IVF A/p Influenza Will use Tamiflu procalcitonin level: pending Blood cx pending Urine cx pending Cxr 04/25 : mild non specific change, no infiltrate or chf cxr 04/26: "b/l perihilar reticulonodular change" Will cont zosyn for potential bacterial superinfection until procal is resulted Viral sepsis With tachycardia, hypotension, high fever lactic acid normalized Hydrate well Dehydration due to viral infection With h/o CKD Will cont hydrate, Try to balance fluid between chf, ckd, dehydration, hypotension Hypotension Likely due to severe sepsis, dehydration Give IVF Levophed as needed - will taper today Acute copd exacerbation wheezing improved treat with pulmicort, duoneb [place] and as needed hyperglycemia noted will follow BSs, use supplemental insuiln and hypoglycemia protocol as needed h/o dvt, PE cont apixaban the patients condition has been critical, immediate threat to life with hypotension critical care time spent with patient was more than 35 min
[2021-04-26] MEDS: Insulin Lispro 100 Units/ML 3 ML Vial SUBCUT SCH ×2 (18:06→21:43)
[2021-04-26] MEDS ORDERED: Lactated Ringers 1,000 ML IV SCH (20:45)
[2021-04-26] MEDS: Omeprazole 20 MG Cap.CR PO SCH (23:50)
[2021-04-27] MEDS: methylPREDNISolone Sodium Succinate 40 MG/1 ML SDV IVPUSH SCH ×3 (00:33→17:59)
[2021-04-27] MEDS: Albuterol/Ipratropium 3.0-0.5 MG/3 ML Neb Soln NEB SCH ×4 (02:15→20:24)
[2021-04-27 07:10] LABS: ANION GAP 16.8 mEq/L (7-13)
[2021-04-27] MEDS: Budesonide 0.5 MG/2 ML Neb Susp NEB SCH ×2 (07:24→20:47)
[2021-04-27] MEDS: Piperacillin/Tazobactam 3.375 GM in Sodium Chloride 0.9% 100 ML IV SCH ×3 (08:49→23:58)
[2021-04-27] MEDS: Insulin Lispro 100 Units/ML 3 ML Vial SUBCUT SCH ×4 (08:50→20:59)
[2021-04-27] MEDS: Oseltamivir 30 MG Cap PO SCH ×2 (08:51→20:48)
[2021-04-27] MEDS: Omeprazole 20 MG Cap.CR PO SCH ×2 (08:51→16:37)
[2021-04-27] MEDS: Multivitamin Tab PO SCH (08:52)
[2021-04-27] MEDS: Apixaban 5 MG Tab PO SCH ×2 (08:52→20:48)
[2021-04-27] MEDS: Sodium Chloride 0.9% 10 ML Syringe FLUSH PRN (08:53)
--- NOTE | 2021-04-27 10:13 | PCM.PN ---
- General Info Date of Service: 04/27/21 Admission Dx/Problem (Free Text): Admission Diagnosis/Problem Admission Diagnosis/Problem Influenza Subjective Update: feeling better Levophed has been weaned off overnight sob is better, no associated cough or sputum no abd pain Functional Status: Reports: Pain Controlled, Tolerating Diet - Review of Systems General: Reports: Weakness. Denies: Fever Pulmonary: Reports: Shortness of Breath Cardiovascular: Denies: Chest Pain, Edema Gastrointestinal: Denies: Abdominal Pain Neurological: Denies: Confusion - Patient Data Vitals - Most Recent: Last Vital Signs Temp 97 F 04/27/21 07:38 Pulse 72 04/27/21 07:38 Resp 18 04/27/21 07:38 BP 104/60 04/27/21 07:38 Pulse Ox 96 04/27/21 07:38 Weight - Most Recent: 192 lb 4.8 oz I&O - Last 24 Hours: Intake & Output 04/26/21 04/27/21 04/27/21 22:59 06:59 14:59 Intake Total 100 400 Output Total 250 600 Balance -150 -200 Lab Results Last 24 Hours: Laboratory Results - last 24 hr 04/26/21 04/26/21 04/26/21 Range/Units 14:00 16:56 21:25 WBC (5.0-10.0) 10^3/uL RBC (4.6-6.2) 10^6/uL Hgb (14.0-18.0) g/dL Hct (40.0-54.0) % MCV (80-100) fL MCH (27.0-34.0) pg MCHC (33.0-35.0) g/dL Plt Count (150-450) 10^3/uL Neut % (Auto) (42.2-75.2) % Lymph % (Auto) (20.5-50.1) % [place] % (Auto) (2-8) % Eos % (Auto) (1.0-3.0) % Baso % (Auto) (0.0-1.0) % Sodium (136-145) mmol/L Potassium (3.5-5.1) mmol/L Chloride (98-107) mmol/L Carbon Dioxide (21-32) mmol/L Anion Gap (7-13) mEq/L BUN (7-18) mg/dL Creatinine (0.70-1.30) mg/dL Est Cr Clr Drug Dosing mL/min Estimated GFR (MDRD) Glucose (70-99) mg/dL POC Glucose 140 H 150 H (70-99) mg/dL Calcium (8.5-10.1) mg/dL Phosphorus (2.6-4.7) mg/dL Magnesium (1.8-2.4) mg/dL Urine Color Yellow (YELLOW) Urine Appearance Clear (CLEAR) Urine pH 5.5 (5.0-9.0) Ur Specific [place] 1.020 (1.005-1.030) Urine Protein Negative (NEGATIVE) Urine Glucose (UA) 100 H (NEGATIVE) Urine Ketones Negative (NEGATIVE) Urine Occult Blood Trace-intact H (NEGATIVE) Urine Nitrite Negative (NEGATIVE) Urine Bilirubin Negative (NEGATIVE) Urine Urobilinogen 0.2 (0.2-1.0) mg/dL Ur Leukocyte Esterase Negative (NEGATIVE) Urine RBC 0-5 (0-5) /HPF Urine WBC 0-5 (0-5/HPF) /HPF Amorphous Sediment Few (NOT SEEN) /HPF Urine Bacteria Rare (0-FEW/HPF) /HPF Urine Mucus Rare (NOT SEEN) /LPF 04/27/21 04/27/21 04/27/21 Range/Units 06:10 06:10 07:40 WBC 18.8 H (5.0-10.0) 10^3/uL RBC 3.85 L (4.6-6.2) 10^6/uL Hgb 11.5 L (14.0-18.0) g/dL Hct 34.6 L (40.0-54.0) % MCV 89.9 (80-100) fL MCH 29.9 (27.0-34.0) pg MCHC 33.2 (33.0-35.0) g/dL Plt Count 261 (150-450) 10^3/uL Neut % (Auto) 93.3 H (42.2-75.2) % Lymph % (Auto) 3.8 L (20.5-50.1) % [place] % (Auto) 2.9 (2-8) % Eos % (Auto) 0.0 L (1.0-3.0) % Baso % (Auto) 0.0 (0.0-1.0) % Sodium 139 (136-145) mmol/L Potassium 4.8 (3.5-5.1) mmol/L Chloride 105 (98-107) mmol/L Carbon Dioxide 22 (21-32) mmol/L Anion Gap 16.8 H (7-13) mEq/L BUN 26 H (7-18) mg/dL Creatinine 1.34 H (0.70-1.30) mg/dL Est Cr Clr Drug Dosing 50.34 mL/min Estimated GFR (MDRD) 53 Glucose 126 H (70-99) mg/dL POC Glucose 131 H (70-99) mg/dL Calcium 8.5 (8.5-10.1) mg/dL Phosphorus 4.1 (2.6-4.7) mg/dL Magnesium 1.8 (1.8-2.4) mg/dL Urine Color (YELLOW) Urine Appearance (CLEAR) Urine pH (5.0-9.0) Ur Specific [place] (1.005-1.030) Urine Protein (NEGATIVE) Urine Glucose (UA) (NEGATIVE) Urine Ketones (NEGATIVE) Urine Occult Blood (NEGATIVE) Urine Nitrite (NEGATIVE) Urine Bilirubin (NEGATIVE) Urine Urobilinogen (0.2-1.0) mg/dL Ur Leukocyte Esterase (NEGATIVE) Urine RBC (0-5) /HPF Urine WBC (0-5/HPF) /HPF Amorphous Sediment (NOT SEEN) /HPF Urine Bacteria (0-FEW/HPF) /HPF Urine Mucus (NOT SEEN) /LPF Shorty Results Last 24 Hours: Microbiology 04/25/21 12:28 Aerobic Blood Culture - Preliminary Blood - Arm, Left NO GROWTH AFTER 1 DAY Anaerobic Blood Culture - Preliminary NO GROWTH AFTER 1 DAY 04/25/21 12:10 Aerobic Blood Culture - Preliminary Blood - Port-A-Cath NO GROWTH AFTER 1 DAY Anaerobic Blood Culture - Preliminary NO GROWTH AFTER 1 DAY Med Orders - Current: Current Medications Acetaminophen (Acetaminophen 325 Mg Tab) 650 mg PO Q4H PRN PRN Reason: Pain (Mild 1-3)/fever Last Admin: 04/26/21 05:34 Dose: 650 mg Documented by: Albuterol/Ipratropium (Albuterol/Ipratropium 3.0-0.5 Mg/3 Ml Neb Soln) 3 ml NEB Q6HRRT [place] Last Admin: 04/27/21 07:24 Dose: Not Given Documented by: Albuterol/Ipratropium (Albuterol/Ipratropium 3.0-0.5 Mg/3 Ml Neb Soln) 3 ml NEB Q2H PRN PRN Reason: sob, wheezing Last Admin: 04/25/21 21:23 Dose: 3 ml Documented by: Apixaban (Apixaban 5 Mg Tab) 5 mg PO BID [facility] Last Admin: 04/27/21 08:52 Dose: 5 mg Documented by: Budesonide (Budesonide 0.5 Mg/2 Ml Neb Susp) 0.5 mg NEB BIDRT [facility] Last Admin: 04/27/21 07:24 Dose: Not Given Documented by: Dextrose/Water (50% Dextrose In Water 50 Ml Syringe) 25 ml IVPUSH ASDIRECTED PRN PRN Reason: Hypoglycemia BS<70 Docusate Sodium (Docusate Sodium 100 Mg Cap) 100 mg PO BID PRN PRN Reason: Constipation Piperacillin Sod/Tazobactam (Sod 3.375 gm/ Sodium Chloride) 100 mls @ 200 mls/hr IV Q8H [facility] Last Admin: 04/27/21 08:49 Dose: 200 mls/hr Documented by: Insulin Human Lispro (Insulin Lispro 100 Units/Ml 3 Ml Vial) 0 unit SUBCUT WITHMEALSANDBED [facility]; Protocol Last Admin: 04/27/21 08:50 Dose: Not Given Documented by: Methylprednisolone Sodium Succinate (Methylprednisolone Sodium Succinate 40 Mg/1 Ml Sdv) 40 mg IVPUSH Q8H [facility] Last Admin: 04/27/21 08:44 Dose: 40 mg Documented by: Morphine Sulfate (Morphine 2 Mg/Ml Syringe) 1 mg IVPUSH Q2H PRN PRN Reason: Pain (severe 7-10) Multivitamins/Minerals/Vitamin C (Multivitamin Tab) 1 tab PO DAILY [facility] Last Admin: 04/27/21 08:52 Dose: 1 tab Documented by: Omeprazole (Omeprazole 20 Mg Cap.Cr) 20 mg PO BIDAC [facility] Last Admin: 04/27/21 08:51 Dose: 20 mg Documented by: Ondansetron HCl (Ondansetron 4 Mg/2 Ml Sdv) 4 mg IVPUSH Q4H PRN PRN Reason: Nausea/Vomiting Oseltamivir Phosphate (Oseltamivir 30 Mg Cap) 30 mg PO BID [facility] Last Admin: 04/27/21 08:51 Dose: 30 mg Documented by: Oxycodone HCl (Oxycodone 5 Mg Tab) 5 mg PO Q4H PRN PRN Reason: Pain (moderate 4-6) Sodium Chloride (Sodium Chloride 0.9% 10 Ml Syringe) 10 ml FLUSH ASDIRECTED PRN PRN Reason: Keep Vein Open Last Admin: 04/27/21 08:53 Dose: 10 ml Documented by: Temazepam (Temazepam 15 Mg Cap) 15 mg PO BEDTIME PRN PRN Reason: Sleep Last Admin: 04/26/21 23:50 Dose: 15 mg Documented by: Discontinued Medications Acetaminophen (Acetaminophen 500 Mg Tab) 1,000 mg PO ONETIME ONE Stop: 04/25/21 12:01 Last Admin: 04/25/21 12:37 Dose: 1,000 mg Documented by: Albuterol/Ipratropium (Albuterol/Ipratropium 3.0-0.5 Mg/3 Ml Neb Soln) 3 ml NEB ONETIME ONE Stop: 04/25/21 13:57 Last Admin: 04/25/21 14:16 Dose: 3 ml Documented by: Heparin Sodium (Porcine) (Heparin Sodium 5,000 Units/Ml Vial) 5,000 units SUBCUT Q8HR [place] Sodium Chloride (Normal Saline) 1,000 mls @ 999 mls/hr IV .BOLUS ONE Stop: 04/25/21 13:06 Last Admin: 04/25/21 12:37 Dose: 999 mls/hr Documented by: Norepinephrine Bitartrate 4 mg (/ Dextrose/Water) 250 mls @ 15 mls/hr IV TITRATE [place]; Protocol Last Titration: 04/27/21 02:28 Dose: 0 mcg/min, 0 mls/hr Documented by: Sodium Chloride (Normal Saline) 1,000 mls @ 999 mls/hr IV ASDIRECTED [place] Last Admin: 04/25/21 14:00 Dose: 999 mls/hr Documented by: Lactated Ringer's (Ringers, Lactated) 1,000 mls @ 150 mls/hr IV ASDIRECTED [place] Last Admin: 04/26/21 13:05 Dose: 150 mls/hr Documented by: Lactated Ringer's (Ringers, Lactated) 1,000 mls @ 75 mls/hr IV ASDIRECTED [place] Last Admin: 04/26/21 20:53 Dose: 75 mls/hr Documented by: Magnesium Oxide (Magnesium Oxide 250 Mg Tab) 500 mg PO Q6H [place] Stop: 04/26/21 20:01 Last Admin: 04/26/21 21:55 Dose: Not Given Documented by: Omeprazole (Omeprazole 20 Mg Cap.Cr) 20 mg PO ACBREAKFAST [facility] Last Admin: 04/26/21 05:34 Dose: 20 mg Documented by: Ondansetron HCl (Ondansetron 4 Mg/2 Ml Sdv) 4 mg IVPUSH ONETIME ONE Stop: 04/25/21 11:58 Last Admin: 04/25/21 12:00 Dose: 4 mg Documented by: Oseltamivir Phosphate (Oseltamivir 75 Mg Cap) 75 mg PO ONETIME ONE Stop: 04/25/21 14:03 Last Admin: 04/25/21 14:22 Dose: 75 mg Documented by: Oseltamivir Phosphate (Oseltamivir 75 Mg Cap) 75 mg PO BID [facility] - Exam Quality Assessment: Supplemental Oxygen General: Alert, Oriented Neck: Supple Lungs: Wheezing Cardiovascular: Regular Rate, Regular Rhythm GI/Abdominal Exam: Normal Bowel Sounds, Soft, Non-Tender Extremities: No Pedal Edema - Patient Data Lab Results Last 24 hrs: Laboratory Results - last 24 hr 04/26/21 04/26/21 04/26/21 Range/Units 14:00 16:56 21:25 WBC (5.0-10.0) 10^3/uL RBC (4.6-6.2) 10^6/uL Hgb (14.0-18.0) g/dL Hct (40.0-54.0) % MCV (80-100) fL MCH (27.0-34.0) pg MCHC (33.0-35.0) g/dL Plt Count (150-450) 10^3/uL Neut % (Auto) (42.2-75.2) % Lymph % (Auto) (20.5-50.1) % [place] % (Auto) (2-8) % Eos % (Auto) (1.0-3.0) % Baso % (Auto) (0.0-1.0) % Sodium (136-145) mmol/L Potassium (3.5-5.1) mmol/L Chloride (98-107) mmol/L Carbon Dioxide (21-32) mmol/L Anion Gap (7-13) mEq/L BUN (7-18) mg/dL Creatinine (0.70-1.30) mg/dL Est Cr Clr Drug Dosing mL/min Estimated GFR (MDRD) Glucose (70-99) mg/dL POC Glucose 140 H 150 H (70-99) mg/dL Calcium (8.5-10.1) mg/dL Phosphorus (2.6-4.7) mg/dL Magnesium (1.8-2.4) mg/dL Urine Color Yellow (YELLOW) Urine Appearance Clear (CLEAR) Urine pH 5.5 (5.0-9.0) Ur Specific [place] 1.020 (1.005-1.030) Urine Protein Negative (NEGATIVE) Urine Glucose (UA) 100 H (NEGATIVE) Urine Ketones Negative (NEGATIVE) Urine Occult Blood Trace-intact H (NEGATIVE) Urine Nitrite Negative (NEGATIVE) Urine Bilirubin Negative (NEGATIVE) Urine Urobilinogen 0.2 (0.2-1.0) mg/dL Ur Leukocyte Esterase Negative (NEGATIVE) Urine RBC 0-5 (0-5) /HPF Urine WBC 0-5 (0-5/HPF) /HPF Amorphous Sediment Few (NOT SEEN) /HPF Urine Bacteria Rare (0-FEW/HPF) /HPF Urine Mucus Rare (NOT SEEN) /LPF 04/27/21 04/27/21 04/27/21 Range/Units 06:10 06:10 07:40 WBC 18.8 H (5.0-10.0) 10^3/uL RBC 3.85 L (4.6-6.2) 10^6/uL Hgb 11.5 L (14.0-18.0) g/dL Hct 34.6 L (40.0-54.0) % MCV 89.9 (80-100) fL MCH 29.9 (27.0-34.0) pg MCHC 33.2 (33.0-35.0) g/dL Plt Count 261 (150-450) 10^3/uL Neut % (Auto) 93.3 H (42.2-75.2) % Lymph % (Auto) 3.8 L (20.5-50.1) % [place] % (Auto) 2.9 (2-8) % Eos % (Auto) 0.0 L (1.0-3.0) % Baso % (Auto) 0.0 (0.0-1.0) % Sodium 139 (136-145) mmol/L Potassium 4.8 (3.5-5.1) mmol/L Chloride 105 (98-107) mmol/L Carbon Dioxide 22 (21-32) mmol/L Anion Gap 16.8 H (7-13) mEq/L BUN 26 H (7-18) mg/dL Creatinine 1.34 H (0.70-1.30) mg/dL Est Cr Clr Drug Dosing 50.34 mL/min Estimated GFR (MDRD) 53 Glucose 126 H (70-99) mg/dL POC Glucose 131 H (70-99) mg/dL Calcium 8.5 (8.5-10.1) mg/dL Phosphorus 4.1 (2.6-4.7) mg/dL Magnesium 1.8 (1.8-2.4) mg/dL Urine Color (YELLOW) Urine Appearance (CLEAR) Urine pH (5.0-9.0) Ur Specific [place] (1.005-1.030) Urine Protein (NEGATIVE) Urine Glucose (UA) (NEGATIVE) Urine Ketones (NEGATIVE) Urine Occult Blood (NEGATIVE) Urine Nitrite (NEGATIVE) Urine Bilirubin (NEGATIVE) Urine Urobilinogen (0.2-1.0) mg/dL Ur Leukocyte Esterase (NEGATIVE) Urine RBC (0-5) /HPF Urine WBC (0-5/HPF) /HPF Amorphous Sediment (NOT SEEN) /HPF Urine Bacteria (0-FEW/HPF) /HPF Urine Mucus (NOT SEEN) /LPF Result Diagrams: 04/27/21 06:10 04/27/21 06:10 Shorty Results Last 24 hrs: Microbiology 04/25/21 12:28 Aerobic Blood Culture - Preliminary Blood - Arm, Left NO GROWTH AFTER 1 DAY Anaerobic Blood Culture - Preliminary NO GROWTH AFTER 1 DAY 04/25/21 12:10 Aerobic Blood Culture - Preliminary Blood - Port-A-Cath NO GROWTH AFTER 1 DAY Anaerobic Blood Culture - Preliminary NO GROWTH AFTER 1 DAY Sepsis Event Note - Evaluation Sepsis Screening Result: No Definite Risk - Focused Exam Vital Signs: Vital Signs Temp Pulse Resp BP BP Pulse Ox 04/27/21 07:38 97 F 72 18 104/60 96 04/27/21 00:00 98.5 F 76 19 113/59 L 96 - Problem List & Annotations (1) Cancer of left lung SNOMED Code(s): 291625973 Code(s): C34.92 - MALIGNANT NEOPLASM OF UNSP PART OF LEFT BRONCHUS OR LUNG Status: Acute Current Visit: No Qualifiers: Lung location: lower lobe of lung Qualified Code(s): C34.32 - Malignant neoplasm of lower lobe, left bronchus or lung (2) Dehydration SNOMED Code(s): 21061186 Code(s): E86.0 - DEHYDRATION Status: Acute Current Visit: No (3) Influenza A SNOMED Code(s): 707516621 Code(s): J10.1 - FLU DUE TO OTH IDENT INFLUENZA VIRUS W OTH RESP MANIFEST Status: Acute Current Visit: No (4) Lactic acidosis SNOMED Code(s): 05058824 Code(s): E87.2 - ACIDOSIS Status: Acute Current Visit: No (5) Lung cancer SNOMED Code(s): 969947640 Code(s): C34.90 - MALIGNANT NEOPLASM OF UNSP PART OF UNSP BRONCHUS OR LUNG Status: Acute Current Visit: No Qualifiers: Laterality: left Lung location: unspecified part of lung Qualified Code(s): C34.92 - Malignant neoplasm of unspecified part of left bronchus or lung (6) Sepsis associated hypotension SNOMED Code(s): 94466795 Code(s): A41.9 - SEPSIS, UNSPECIFIED ORGANISM; I95.9 - HYPOTENSION, UNSPECIFIED Status: Acute Current Visit: No (7) Septic shock SNOMED Code(s): 80223981 Code(s): A41.9 - SEPSIS, UNSPECIFIED ORGANISM; R65.21 - SEVERE SEPSIS WITH SEPTIC SHOCK Status: Acute Current Visit: No - Problem List Review Problem List Initiated/Reviewed/Updated: Yes - My Orders Last 24 Hours: My Active Orders 04/26/21 13:50 Blood Glucose Check, Bedside [RC] WITHMEALSANDBED Dextrose 50% in Water 25 ml IVPUSH ASDIRECTED PRN 04/26/21 14:01 Telemetry Monitoring [Cardiac Monitoring] [RC] 04/26/21 18:00 Insulin Lispro [HumaLOG] See Protocol SUBCUT WITHMEALSANDBED 04/26/21 23:37 Omeprazole 20 mg PO BIDAC 04/28/21 05:11 BASIC METABOLIC PANEL,BMP [CHEM] AM CBC WITH AUTO DIFF [HEME] AM MAGNESIUM [CHEM] AM PHOSPHORUS [CHEM] AM 04/29/21 05:11 BASIC METABOLIC PANEL,BMP [CHEM] AM CBC WITH AUTO DIFF [HEME] AM MAGNESIUM [CHEM] AM PHOSPHORUS [CHEM] AM 04/30/21 05:11 BASIC METABOLIC PANEL,BMP [CHEM] AM CBC WITH AUTO DIFF [HEME] AM MAGNESIUM [CHEM] AM PHOSPHORUS [CHEM] AM 05/01/21 05:11 BASIC METABOLIC PANEL,BMP [CHEM] AM CBC WITH AUTO DIFF [HEME] AM - Plan Plan:: Presented with fever, sob, nausea, vomiting. Family had flu type symptoms Information from Daughter Caroline, , Ashlee [phone] h/o hyperglycemia while in hospital h/o low BP since cancer tx., h/o DVT, PE on xarelto, h/o smoking, lung cancer thought to be in remission h/o dexamethasone prn for nausea and appetite h/o anxiety, hallucination, possible dementia presented with 2 days h/o nausea, vomiting, diarrhea daughter noted confusion in er noted to have hypotension, dry mouth, wheezing, fever, tachycardia labs were significant for elevated lactate, was given 3 l IVF bolus overnight improved mentation he is feeling better he remained on levophed infused via port, remained on IVF A/p Influenza Will continue Tamiflu procalcitonin level: pending Blood cx pending Urine cx pending Cxr 04/25 : mild non specific change, no infiltrate or chf cxr 04/26: "b/l perihilar reticulonodular change" Will cont zosyn for potential bacterial superinfection until procal is resulted Viral sepsis With tachycardia, hypotension, high fever lactic acid normalized hypotension resolved weaned off levophed stop IVF Dehydration due to viral infection With h/o CKD resolved stop IVF Acute copd exacerbation wheezing improved but still present treat with pulmicort, duoneb [place] and as needed hyperglycemia noted will follow BSs, use supplemental insuiln and hypoglycemia protocol as needed h/o dvt, PE cont apixaban consult pt/ot
[2021-04-27] MEDS: Albuterol/Ipratropium 3.0-0.5 MG/3 ML Neb Soln NEB PRN (20:24)
[2021-04-27] MEDS: Acetaminophen 325 MG Tab PO PRN (20:48)
[2021-04-28] MEDS: Albuterol/Ipratropium 3.0-0.5 MG/3 ML Neb Soln NEB SCH ×3 (00:43→14:01)
[2021-04-28] MEDS: methylPREDNISolone Sodium Succinate 40 MG/1 ML SDV IVPUSH SCH ×2 (00:43→08:29)
[2021-04-28] MEDS: Omeprazole 20 MG Cap.CR PO SCH (05:53)
[2021-04-28 06:56] LABS: ANION GAP 19.2 mEq/L (7-13)
[2021-04-28] MEDS: Piperacillin/Tazobactam 3.375 GM in Sodium Chloride 0.9% 100 ML IV SCH (08:34)
[2021-04-28] MEDS: Insulin Lispro 100 Units/ML 3 ML Vial SUBCUT SCH ×2 (08:36→12:24)
[2021-04-28] MEDS: Oseltamivir 30 MG Cap PO SCH (08:40)
[2021-04-28] MEDS: Multivitamin Tab PO SCH (08:41)
[2021-04-28] MEDS: Apixaban 5 MG Tab PO SCH (08:41)
--- NOTE | 2021-04-28 09:06 | CR ---
PROCEDURE INFORMATION: Exam: XR Chest Exam date and time: 04/28/2021 8:44 AM Age: 70 years old Clinical indication: Elevated procalcitonin TECHNIQUE: Imaging protocol: XR of the chest. Views: 1 view. COMPARISON: CR Chest 1V Frontal 04/26/2021 8:27 AM FINDINGS: Tubes, catheters and devices: There is a right jugular port present with the catheter tip at/near the superior cavoatrial junction. Lungs: Bilateral central bronchial wall thickening and haziness. No pulmonary vascular congestion. No focal peripheral lung consolidation, air bronchogram formation, or silhouette sign. Pleural spaces: No pleural effusion or pneumothorax. Heart/Mediastinum: The cardiac silhouette is not enlarged. The mediastinal contours are normal. Bones/joints: No acute osseous abnormality. IMPRESSION: Bilateral bronchial inflammation/edema. Any shortness of breath, cough or wheezing?
[2021-04-28] MEDS: Budesonide 0.5 MG/2 ML Neb Susp NEB SCH (10:22)
--- NOTE | 2021-04-28 11:49 | PCM.DCSUM1 ---
Discharge Summary - Hospital Course Brief History: This is a 70-year-old male with past medical history of GERD, insomnia, partial right eye blindness, history of smoking, COPD, lung cancer status post chemo therapy, osteoarthritis, and history of DVT/PE on Eliquis who presented with flulike symptoms and was found positive for influenza A. Diagnosis: Stroke: No Modified [place] Scale: No Symptoms at All Modified Jaun Scale Score: 0 - Discharge Data Discharge Date: 04/28/21 Discharge Disposition: Home, Self-Care 01 Condition: Good - Referral to Home Health Primary Care Physician: PCP None - Patient Summary/Data Operative Procedure(s) Performed: None Complications: None Consults: Consultations 04/27/21 10:16 OT Evaluation and Treatment [CONS] Routine PT Evaluation and Treatment [CONS] Routine Labs Pending at D/C: CBC and BMP with mag and follow-up appointment with primary care provider. Recommended Follow-up Testing/Procedures: None Planned Operative Procedure(s) after DC: None Hospital Course: Patient was admitted for viral sepsis due to influenza A. He received appropriate treatment to include antiviral agent, intravenous antibiotic and volume resuscitation. He also required short treatment of Levophed drip for profound hypotension. With the treatment provided, he immediately improved and now with clinically stable and ready for discharge. His blood cultures were negative for any organism goals for after 48 hours. His hospital course was fairly uncomplicated and the rest of his chronic medical illness remained stable. So far he has completed 4 doses of Tamiflu and he will be discharged home to complete additional course of Tamiflu along with oral antibacterial agent. This patient was advised to observe isolation protocol until he completes his treatment and to follow-up with primary care in 1 week. He was further advised to come back and or seek immediate care at the nearest medical facility should his symptoms persist or get worse. - Patient Instructions Diet: Usual Diet as Tolerated Activity: As Tolerated Driving: Do Not Drive Showering/Bathing: May Shower Notify Provider of: Fever, Nausea and/or Vomiting - Discharge Plan *PRESCRIPTION DRUG MONITORING PROGRAM REVIEWED*: Not Applicable *COPY OF PRESCRIPTION DRUG MONITORING REPORT IN PATIENT ARACELI: Not Applicable Prescriptions/Med Rec: levoFLOXacin [Levaquin] 750 mg PO Q48H 5 Days #2.5 tab Oseltamivir [Tamiflu] 30 mg PO BID #5 cap Home Medications: Home Meds Zolpidem Tartrate 10 mg PO BEDTIME 01/11/19 [History] Multivitamin with Minerals [Multiple Vitamin] 1 tab PO DAILY 06/16/20 [History] Omeprazole 20 mg PO DAILY 06/16/20 [History] Apixaban [Eliquis] 5 mg PO BID 04/25/21 [History] Umeclidinium Brm/Vilanterol Tr [Anoro Ellipta 62.5-25 MCG] 1 puff IH DAILY 04/25/21 [History] Oseltamivir [Tamiflu] 30 mg PO BID #5 cap 04/28/21 [Rx] levoFLOXacin [Levaquin] 750 mg PO Q48H 5 Days #2.5 tab 04/28/21 [Rx] Oxygen Therapy Mode: Room Air Patient Handouts: Acute Kidney Injury, Adult, Influenza, Adult, [id number], Hypotension, [id number], Dehydration, Adult, [id number], Oseltamivir Oral Capsules, Levofloxacin tablets, Sepsis, Self Care, Adult Referrals: Taylor Mackey PA-C [Ordering Only Provider] - - Discharge Summary/Plan Comment DC Time >30 min.: No Total # of Minutes for Discharge Time: 15 minutes Discharge Summary/Plan Comment: Please follow discharge instructions. Take all new medications as directed. Continue home activities as tolerated. Continue all home medications as previously prescribed. Practice isolation protocol until you complete influenza treatment. Continue to use your flutter valve/incentive spirometry until you complete your treatment. We recommend to hydrate adequately and follow-up with your primary care in one week. And most importantly, come back and or seek immediate care at the nearest medical facility should your symptoms persist or get worse. - General Info Date of Service: 04/28/21 Admission Dx/Problem (Free Text: Admission Diagnosis/Problem Admission Diagnosis/Problem Influenza Subjective Update: No overnight acute issues. His vitals are stable. He is satting adequately new air. He is feeling really good and no complaints this morning. He is eating and drinking fine. He is hoping he could go home today. Functional Status: Reports: Pain Controlled, Tolerating Diet, Ambulating, Urinating. Denies: New Symptoms - Review of Systems General: Denies: Fever, Chills HEENT: Denies: Contact Lenses Pulmonary: Reports: Cough. Denies: Shortness of Breath, Wheezing Cardiovascular: Denies: Chest Pain Gastrointestinal: Denies: Abdominal Pain, Nausea, Vomiting Genitourinary: Denies: Dysuria, Frequency Musculoskeletal: Reports: No Symptoms Skin: Denies: Cyanosis, Mottled, Pallor, Rash Neurological: Denies: Confusion Psychiatric: Denies: Depression, Anxiety - Patient Data Vitals - Most Recent: Last Vital Signs Temp 36.9 C 04/28/21 07:54 Pulse 67 04/28/21 07:54 Resp 23 H 04/28/21 07:54 BP 102/57 L 04/28/21 07:54 Pulse Ox 98 04/28/21 07:54 Weight - Most Recent: 87.226 kg I&O - Last 24 hours: Intake & Output 04/27/21 04/28/21 04/28/21 22:59 06:59 14:59 Intake Total 94 650 200 Balance 94 650 200 Lab Results - Last 24 hrs: Laboratory Results - last 24 hr 04/25/21 04/27/21 04/27/21 Range/Units 16:50 17:55 20:58 WBC (5.0-10.0) 10^3/uL RBC (4.6-6.2) 10^6/uL Hgb (14.0-18.0) g/dL Hct (40.0-54.0) % MCV (80-100) fL MCH (27.0-34.0) pg MCHC (33.0-35.0) g/dL Plt Count (150-450) 10^3/uL Neut % (Auto) (42.2-75.2) % Lymph % (Auto) (20.5-50.1) % [place] % (Auto) (2-8) % Eos % (Auto) (1.0-3.0) % Baso % (Auto) (0.0-1.0) % Sodium (136-145) mmol/L Potassium (3.5-5.1) mmol/L Chloride (98-107) mmol/L Carbon Dioxide (21-32) mmol/L Anion Gap (7-13) mEq/L BUN (7-18) mg/dL Creatinine (0.70-1.30) mg/dL Est Cr Clr Drug Dosing mL/min Estimated GFR (MDRD) Glucose (70-99) mg/dL POC Glucose 131 H 118 H (70-99) mg/dL Calcium (8.5-10.1) mg/dL Phosphorus (2.6-4.7) mg/dL Magnesium (1.8-2.4) mg/dL Procalcitonin 6.58 H ng/mL 04/28/21 04/28/21 04/28/21 Range/Units 05:25 05:25 07:33 WBC 12.1 H (5.0-10.0) 10^3/uL RBC 3.86 L (4.6-6.2) 10^6/uL Hgb 11.5 L (14.0-18.0) g/dL Hct 35.3 L (40.0-54.0) % MCV 91.5 (80-100) fL MCH 29.8 (27.0-34.0) pg MCHC 32.6 L (33.0-35.0) g/dL Plt Count 290 (150-450) 10^3/uL Neut % (Auto) 92.6 H (42.2-75.2) % Lymph % (Auto) 5.6 L (20.5-50.1) % [place] % (Auto) 1.7 L (2-8) % Eos % (Auto) 0.0 L (1.0-3.0) % Baso % (Auto) 0.1 (0.0-1.0) % Sodium 140 (136-145) mmol/L Potassium 4.2 (3.5-5.1) mmol/L Chloride 104 (98-107) mmol/L Carbon Dioxide 21 (21-32) mmol/L Anion Gap 19.2 H (7-13) mEq/L BUN 33 H (7-18) mg/dL Creatinine 1.37 H (0.70-1.30) mg/dL Est Cr Clr Drug Dosing 49.23 mL/min Estimated GFR (MDRD) 52 Glucose 127 H (70-99) mg/dL POC Glucose 163 H (70-99) mg/dL Calcium 8.2 L (8.5-10.1) mg/dL Phosphorus 4.0 (2.6-4.7) mg/dL Magnesium 2.0 (1.8-2.4) mg/dL Procalcitonin ng/mL 04/28/21 Range/Units 11:20 WBC (5.0-10.0) 10^3/uL RBC (4.6-6.2) 10^6/uL Hgb (14.0-18.0) g/dL Hct (40.0-54.0) % MCV (80-100) fL MCH (27.0-34.0) pg MCHC (33.0-35.0) g/dL Plt Count (150-450) 10^3/uL Neut % (Auto) (42.2-75.2) % Lymph % (Auto) (20.5-50.1) % [place] % (Auto) (2-8) % Eos % (Auto) (1.0-3.0) % Baso % (Auto) (0.0-1.0) % Sodium (136-145) mmol/L Potassium (3.5-5.1) mmol/L Chloride (98-107) mmol/L Carbon Dioxide (21-32) mmol/L Anion Gap (7-13) mEq/L BUN (7-18) mg/dL Creatinine (0.70-1.30) mg/dL Est Cr Clr Drug Dosing mL/min Estimated GFR (MDRD) Glucose (70-99) mg/dL POC Glucose 118 H (70-99) mg/dL Calcium (8.5-10.1) mg/dL Phosphorus (2.6-4.7) mg/dL Magnesium (1.8-2.4) mg/dL Procalcitonin ng/mL FILI Results - Last 24 hrs: Microbiology 04/25/21 12:28 Aerobic Blood Culture - Preliminary Blood - Arm, Left NO GROWTH AFTER 2 DAYS Anaerobic Blood Culture - Preliminary NO GROWTH AFTER 2 DAYS 04/25/21 12:10 Aerobic Blood Culture - Preliminary Blood - Port-A-Cath NO GROWTH AFTER 2 DAYS Anaerobic Blood Culture - Preliminary NO GROWTH AFTER 2 DAYS Med Orders - Current: Current Medications Acetaminophen (Acetaminophen 325 Mg Tab) 650 mg PO Q4H PRN PRN Reason: Pain (Mild 1-3)/fever Last Admin: 04/27/21 20:48 Dose: 650 mg Documented by: Albuterol/Ipratropium (Albuterol/Ipratropium 3.0-0.5 Mg/3 Ml Neb Soln) 3 ml NEB Q6HRRT CASSANDRA Last Admin: 04/28/21 10:22 Dose: Not Given Documented by: Albuterol/Ipratropium (Albuterol/Ipratropium 3.0-0.5 Mg/3 Ml Neb Soln) 3 ml NEB Q2H PRN PRN Reason: sob, wheezing Last Admin: 04/27/21 20:24 Dose: 3 ml Documented by: Apixaban (Apixaban 5 Mg Tab) 5 mg PO BID [facility] Last Admin: 04/28/21 08:41 Dose: 5 mg Documented by: Budesonide (Budesonide 0.5 Mg/2 Ml Neb Susp) 0.5 mg NEB BIDRT [facility] Last Admin: 04/28/21 10:22 Dose: Not Given Documented by: Dextrose/Water (50% Dextrose In Water 50 Ml Syringe) 25 ml IVPUSH ASDIRECTED PRN PRN Reason: Hypoglycemia BS<70 Docusate Sodium (Docusate Sodium 100 Mg Cap) 100 mg PO BID PRN PRN Reason: Constipation Piperacillin Sod/Tazobactam (Sod 3.375 gm/ Sodium Chloride) 100 mls @ 200 mls/hr IV Q8H [facility] Last Admin: 04/28/21 08:34 Dose: 200 mls/hr Documented by: Insulin Human Lispro (Insulin Lispro 100 Units/Ml 3 Ml Vial) 0 unit SUBCUT WITHMEALSANDBED [facility]; Protocol Last Admin: 04/28/21 08:36 Dose: Not Given Documented by: Methylprednisolone Sodium Succinate (Methylprednisolone Sodium Succinate 40 Mg/1 Ml Sdv) 40 mg IVPUSH Q8H [facility] Last Admin: 04/28/21 08:29 Dose: 40 mg Documented by: Morphine Sulfate (Morphine 2 Mg/Ml Syringe) 1 mg IVPUSH Q2H PRN PRN Reason: Pain (severe 7-10) Multivitamins/Minerals/Vitamin C (Multivitamin Tab) 1 tab PO DAILY [facility] Last Admin: 04/28/21 08:41 Dose: 1 tab Documented by: Omeprazole (Omeprazole 20 Mg Cap.Cr) 20 mg PO BIDAC [facility] Last Admin: 04/28/21 05:53 Dose: 20 mg Documented by: Ondansetron HCl (Ondansetron 4 Mg/2 Ml Sdv) 4 mg IVPUSH Q4H PRN PRN Reason: Nausea/Vomiting Oseltamivir Phosphate (Oseltamivir 30 Mg Cap) 30 mg PO BID [facility] Last Admin: 04/28/21 08:40 Dose: 30 mg Documented by: Oxycodone HCl (Oxycodone 5 Mg Tab) 5 mg PO Q4H PRN PRN Reason: Pain (moderate 4-6) Sodium Chloride (Sodium Chloride 0.9% 10 Ml Syringe) 10 ml FLUSH ASDIRECTED PRN PRN Reason: Keep Vein Open Last Admin: 04/27/21 08:53 Dose: 10 ml Documented by: Temazepam (Temazepam 15 Mg Cap) 15 mg PO BEDTIME PRN PRN Reason: Sleep Last Admin: 04/26/21 23:50 Dose: 15 mg Documented by: Discontinued Medications Acetaminophen (Acetaminophen 500 Mg Tab) 1,000 mg PO ONETIME ONE Stop: 04/25/21 12:01 Last Admin: 04/25/21 12:37 Dose: 1,000 mg Documented by: Albuterol/Ipratropium (Albuterol/Ipratropium 3.0-0.5 Mg/3 Ml Neb Soln) 3 ml NEB ONETIME ONE Stop: 04/25/21 13:57 Last Admin: 04/25/21 14:16 Dose: 3 ml Documented by: Heparin Sodium (Porcine) (Heparin Sodium 5,000 Units/Ml Vial) 5,000 units SUBCUT Q8HR [facility] Heparin Sodium (Porcine) (Heparin Sodium 100 Units/Ml 5 Ml Syringe) 500 units FLUSH ONETIME ONE Stop: 04/28/21 10:31 Last Admin: 04/28/21 11:42 Dose: 500 units Documented by: Sodium Chloride (Normal Saline) 1,000 mls @ 999 mls/hr IV .BOLUS ONE Stop: 04/25/21 13:06 Last Admin: 04/25/21 12:37 Dose: 999 mls/hr Documented by: Norepinephrine Bitartrate 4 mg (/ Dextrose/Water) 250 mls @ 15 mls/hr IV TITRATE [facility]; Protocol Last Titration: 04/27/21 02:28 Dose: 0 mcg/min, 0 mls/hr Documented by: Sodium Chloride (Normal Saline) 1,000 mls @ 999 mls/hr IV ASDIRECTED [facility] Last Admin: 04/25/21 14:00 Dose: 999 mls/hr Documented by: Lactated Ringer's (Ringers, Lactated) 1,000 mls @ 150 mls/hr IV ASDIRECTED [facility] Last Admin: 04/26/21 13:05 Dose: 150 mls/hr Documented by: Lactated Ringer's (Ringers, Lactated) 1,000 mls @ 75 mls/hr IV ASDIRECTED [facility] Last Admin: 04/26/21 20:53 Dose: 75 mls/hr Documented by: Magnesium Oxide (Magnesium Oxide 250 Mg Tab) 500 mg PO Q6H [facility] Stop: 04/26/21 20:01 Last Admin: 04/26/21 21:55 Dose: Not Given Documented by: Omeprazole (Omeprazole 20 Mg Cap.Cr) 20 mg PO ACBREAKFAST [facility] Last Admin: 04/26/21 05:34 Dose: 20 mg Documented by: Ondansetron HCl (Ondansetron 4 Mg/2 Ml Sdv) 4 mg IVPUSH ONETIME ONE Stop: 04/25/21 11:58 Last Admin: 04/25/21 12:00 Dose: 4 mg Documented by: Oseltamivir Phosphate (Oseltamivir 75 Mg Cap) 75 mg PO ONETIME ONE Stop: 04/25/21 14:03 Last Admin: 04/25/21 14:22 Dose: 75 mg Documented by: Oseltamivir Phosphate (Oseltamivir 75 Mg Cap) 75 mg PO BID [facility]ASSANDRA - Exam Quality Assessment: Denies: Supplemental Oxygen General: Reports: Alert, Oriented, Cooperative, No Acute Distress HEENT: Reports: Pupils Equal, Pupils Reactive, EOMI, Mucous Membr. Moist/[place] Neck: Reports: Supple Lungs: Reports: Clear to Auscultation, Normal Respiratory Effort, Other (Port-a-cath access on right anterior thorax) Cardiovascular: Reports: Regular Rate, Regular Rhythm GI/Abdominal Exam: Normal Bowel Sounds, Soft, No Distention, No Abnormal Bruit, No Mass, Pelvis Stable (Male) Exam: Deferred Rectal (Males) Exam: Deferred Back Exam: Reports: Normal Inspection, Full Range of Motion Extremities: Normal Inspection, Normal Range of Motion, Non-Tender, No Pedal Cameron ma, Normal Capillary Refill Skin: Reports: Warm, Dry Neurological: Reports: No New Focal Deficit Psy/Mental Status: Reports: Alert, Normal Affect, Normal Mood
== END 2021-04-28 13:50 | disposition home or self-care (01) | DRG 871 ==
LOC: DL.ED 11:38 → DL.MS 14:11 → DL.ED 15:05
PROVIDERS: ADMIT Internal Medicine; ATTEND Internal Medicine
PROC: 3E033XZ Introduction of Vasopressor into Peripheral Vein, Percutaneous Approach (ICD-10-PCS; principal; 2021-04-25)
DX: A41.9 Sepsis, unspecified organism (principal); A41.89 Other specified sepsis; R65.21 Severe sepsis with septic shock; E87.2 Acidosis; C34.92 Malignant neoplasm of unspecified part of left bronchus or lung; H54.7 Unspecified visual loss; J44.1 Chronic obstructive pulmonary disease with (acute) exacerbation; J10.1 Influenza due to other identified influenza virus with other respiratory manifestations; C34.90 Malignant neoplasm of unspecified part of unspecified bronchus or lung; I95.9 Hypotension, unspecified; K21.9 Gastro-esophageal reflux disease without esophagitis; E86.0 Dehydration; G47.00 Insomnia, unspecified; H54.61 Unqualified visual loss, right eye, normal vision left eye; J44.9 Chronic obstructive pulmonary disease, unspecified; M19.90 Unspecified osteoarthritis, unspecified site; Z86.718 Personal history of other venous thrombosis and embolism; Z79.01 Long term (current) use of anticoagulants; Z79.899 Other long term (current) drug therapy; Z87.891 Personal history of nicotine dependence; Z86.19 Personal history of other infectious and parasitic diseases; Z86.711 Personal history of pulmonary embolism; Z20.822 Contact with and (suspected) exposure to COVID-19
CPT/HCPCS: 0240U; 36415; 36600; 71045; 80048; 80053; 80307; 81001; 82803; 82947; 83605; 83735; 83880; 84100; 84145; 84484; 85025; 87040; 93005; 94640; 97165-GO; A9270-GY; J1642; J1815-GY; J2405; J2543; J2920; J7030; J7060; J7120; J7620-GY

== ENCOUNTER 2022-03-26 16:41 | Emergency (ER) | payer MEDICARE ==
[2022-03-26 17:55] LABS: CORONAVIRUS COVID-19 NAA NEGATIVE (NEGATIVE); RESPIRATORY SYNCYTIAL VIR NAA NEGATIVE (NEGATIVE)
[2022-03-26] MEDS ORDERED: Sodium Chloride 0.9% 1,000 ML IV ONE ×2 (18:02→19:46)
[2022-03-26 18:10] LABS: ANION GAP 11.8 mEq/L (7-13); CHLORIDE,CL 103 mmol/L (98-107); ESTIMATED GFR 54 mL/min (>=60); SODIUM,NA 138 mmol/L (136-145)
== END 2022-03-26 22:23 | disposition home or self-care (01) ==
LOC: DL.ED 16:41
DX: I95.1 Orthostatic hypotension (principal); J44.9 Chronic obstructive pulmonary disease, unspecified; Z87.891 Personal history of nicotine dependence; Z79.899 Other long term (current) drug therapy; Z20.822 Contact with and (suspected) exposure to COVID-19
CPT/HCPCS: 0241U; 36415; 70450; 71045; 80053; 80307; 82150; 83605; 83690; 83735; 83880; 84443; 84484; 85025; 85610; 85730; 87040; 93005; 96360; 96361; 99284; J1642; J7030

== ENCOUNTER 2022-05-29 03:48 | Inpatient (IN) | payer MEDICARE ==
[2022-05-29] MEDS: Sodium Chloride 0.9% 10 ML Syringe FLUSH PRN (03:43)
[~2022-05-29 03:48] MED LIST: 50% Dextrose in Water 50 ML Syringe ONE; Sodium Chloride 0.9% 1,000 ML IV ONE
[2022-05-29] MEDS ORDERED: Iopamidol 755 Mg/ML 100 ML Bottle IVPUSH ONE (03:57)
[2022-05-29] MEDS ORDERED: 50% Dextrose in Water 50 ML Syringe IVPUSH ONE ×4 (04:11→07:44)
[2022-05-29] MEDS ORDERED: 50% Dextrose in Water 50 ML Syringe ONE (04:11)
[2022-05-29 04:17] LABS: ANION GAP 11.9 mEq/L (7-13); CHLORIDE,CL 101 mmol/L (98-107); SODIUM,NA 136 mmol/L (136-145)
[2022-05-29 04:18] LABS: ESTIMATED GFR 60 mL/min (>=60)
[2022-05-29 04:37] LABS: RESPIRATORY SYNCYTIAL VIR NAA NEGATIVE (NEGATIVE)
[2022-05-29 04:38] LABS: CORONAVIRUS COVID-19 NAA POSITIVE (NEGATIVE)
[2022-05-29] MEDS ORDERED: Dextrose 5%-0.9% NaCl 1,000 ML IV SCH (05:00)
[2022-05-29] MEDS ORDERED: Ketorolac 30 MG/ML SDV IVPUSH ONE (06:09)
[2022-05-29] MEDS ORDERED: Docusate Sodium 100 MG Cap PO PRN (09:00)
[2022-05-29] MEDS ORDERED: oxyCODONE 5 MG Tab PO PRN (09:00)
[2022-05-29] MEDS ORDERED: Zolpidem 5 MG Tab PO PRN (09:00)
[2022-05-29] MEDS ORDERED: Dextrose 5%-0.45% NaCl 1,000 ML IV SCH (09:00)
[2022-05-29] MEDS ORDERED: Ondansetron 4 MG Tab.DIS PO PRN (09:00)
[2022-05-29] MEDS: methylPREDNISolone Sodium Succinate 40 MG/1 ML SDV IVPUSH SCH ×2 (10:03→17:16)
[2022-05-29] MEDS: cefTRIAXone 1 GM Vial IVPUSH SCH (10:04)
[2022-05-29] MEDS: Azithromycin 500 MG in Sodium Chloride 0.9% 250 ML IV SCH (10:28)
[2022-05-29] MEDS: Enoxaparin 40 MG/0.4 ML Syringe SUBCUT SCH (11:25)
[2022-05-29] MEDS: Acetaminophen 325 MG Tab PO PRN (13:06)
[2022-05-29] MEDS: Albuterol/Ipratropium 3.0-0.5 MG/3 ML Neb Soln NEB SCH ×2 (13:07→18:15)
[2022-05-30] MEDS: methylPREDNISolone Sodium Succinate 40 MG/1 ML SDV IVPUSH SCH ×2 (00:21→12:37)
[2022-05-30] MEDS: Sodium Chloride 0.9% 10 ML Syringe FLUSH PRN (00:21)
[2022-05-30] MEDS: Albuterol/Ipratropium 3.0-0.5 MG/3 ML Neb Soln NEB SCH ×4 (00:25→18:51)
[2022-05-30] MEDS: Azithromycin 500 MG in Sodium Chloride 0.9% 250 ML IV SCH (08:24)
[2022-05-30] MEDS: Enoxaparin 40 MG/0.4 ML Syringe SUBCUT SCH (08:27)
[2022-05-30] MEDS: cefTRIAXone 1 GM Vial IVPUSH SCH (08:28)
[2022-05-30] MEDS ORDERED: Multivitamin Tab PO SCH (09:00)
[2022-05-30] MEDS ORDERED: Non-Formulary Medication 1 Each (Multivitamin With Minerals [Multiple Vitamin] 1 EACH Tabl PO SCH (09:00)
[2022-05-30 09:07] LABS: HEMOGLOBIN A1C 5.4 % (<5.7)
[2022-05-30] MEDS ORDERED: OLANZapine 10 MG Vial IM PRN ×3 (10:42→20:29)
[2022-05-30] MEDS ORDERED: Water For Injection, Sterile 10 ML ONE ×2 (10:49→17:16)
[2022-05-30] MEDS ORDERED: QUEtiapine 25 MG Tab PO SCH (15:00)
[2022-05-30] MEDS ORDERED: REMDESIVIR 200 MG in Sodium Chloride 0.9% 250 ML IV ONE (20:00)
[2022-05-30] MEDS ORDERED: REMDESIVIR 200 MG ONE (20:49)
[2022-05-30] MEDS: Acetaminophen 325 MG Tab PO PRN (21:15)
[2022-05-30] MEDS ORDERED: Ondansetron 4 MG/2 ML SDV IVPUSH PRN (23:03)
[2022-05-30] MEDS ORDERED: QUEtiapine 25 MG Tab PO ONE (23:07)
[2022-05-30] MEDS: Melatonin 3 MG Tab PO SCH (23:30)
[2022-05-31] MEDS ORDERED: QUEtiapine 25 MG Tab PO PRN ×2 (01:00→13:46)
[2022-05-31] MEDS: Albuterol/Ipratropium 3.0-0.5 MG/3 ML Neb Soln NEB SCH ×4 (02:28→17:00)
[2022-05-31 06:50] LABS: ANION GAP 11.7 mEq/L (7-13)
[2022-05-31] MEDS: cefTRIAXone 1 GM Vial IVPUSH SCH (08:32)
[2022-05-31] MEDS: Sodium Chloride 0.9% 10 ML Syringe FLUSH PRN (08:33)
[2022-05-31] MEDS: Enoxaparin 40 MG/0.4 ML Syringe SUBCUT SCH (08:33)
[2022-05-31] MEDS ORDERED: Dexamethasone 6 MG TABLET PO ONE (17:00)
[2022-05-31] MEDS ORDERED: Ziprasidone Mesylate 20 MG Vial IM PRN (17:56)
[2022-05-31] MEDS ORDERED: REMDESIVIR 100 MG in Sodium Chloride 0.9% 100 ML IV SCH (20:00)
[2022-05-31] MEDS: Famotidine 20 MG Tab PO SCH (20:14)
[2022-05-31] MEDS: Acetaminophen 325 MG Tab PO PRN (20:15)
[2022-05-31] MEDS: Melatonin 3 MG Tab PO SCH (20:15)
[2022-06-01] MEDS: Albuterol/Ipratropium 3.0-0.5 MG/3 ML Neb Soln NEB SCH ×3 (01:06→12:34)
[2022-06-01 06:33] LABS: ANION GAP 16.5 mEq/L (7-13)
[2022-06-01] MEDS ORDERED: Dexamethasone 6 MG TABLET PO SCH (08:00)
[2022-06-01] MEDS: Famotidine 20 MG Tab PO SCH (08:16)
[2022-06-01] MEDS: Enoxaparin 40 MG/0.4 ML Syringe SUBCUT SCH (08:16)
[2022-06-01] MEDS: Azithromycin 250 MG in Sodium Chloride 0.9% 250 ML IV SCH ×2 (15:18→17:06)
[2022-06-01] MEDS: Sodium Chloride 0.9% 10 ML Syringe FLUSH PRN (15:19)
[2022-06-03] MEDS ORDERED: REMDESIVIR 100 MG in Sodium Chloride 0.9% 100 ML IV SCH (09:00)
== END 2022-06-01 16:45 | disposition left against medical advice (07) | DRG 177 ==
LOC: DL.ED 03:48 → DL.MS 06:50
PROVIDERS: ADMIT Internal Medicine; ATTEND Internal Medicine
PROC: 8E0ZXY6 Isolation (ICD-10-PCS; principal; 2022-05-29)
PROC: XW033E5 Introduction of Remdesivir Anti-infective into Peripheral Vein, Percutaneous Approach, New Technology Group 5 (ICD-10-PCS; 2022-05-29)
PROC: 3E0333Z Introduction of Anti-inflammatory into Peripheral Vein, Percutaneous Approach (ICD-10-PCS; 2022-05-29)
DX: U07.1 COVID-19 (principal); G93.41 Metabolic encephalopathy; K21.9 Gastro-esophageal reflux disease without esophagitis; H54.61 Unqualified visual loss, right eye, normal vision left eye; G47.00 Insomnia, unspecified; E87.8 Other disorders of electrolyte and fluid balance, not elsewhere classified; J44.9 Chronic obstructive pulmonary disease, unspecified; E88.09 Other disorders of plasma-protein metabolism, not elsewhere classified; E16.2 Hypoglycemia, unspecified; I10 Essential (primary) hypertension; R31.0 Gross hematuria; I95.9 Hypotension, unspecified; Z87.891 Personal history of nicotine dependence; Z85.118 Personal history of other malignant neoplasm of bronchus and lung; Z86.718 Personal history of other venous thrombosis and embolism; Z85.841 Personal history of malignant neoplasm of brain; Z79.01 Long term (current) use of anticoagulants; Z92.21 Personal history of antineoplastic chemotherapy; Z86.711 Personal history of pulmonary embolism
CPT/HCPCS: 0241U; 36415; 70450; 71045; 71250; 71260; 80048; 80053; 81001; 82009; 82140; 82150; 82248; 82947; 83036; 83525; 83605; 83690; 83735; 84100; 84145; 84305; 84681; 85025; 85027; 85379; 86140; 87040; 94640; 96361; 96374; 96375; 96376; 99284; 99285-25; A9270-GY; J0248; J0456; J0696; J1650; J1885; J2405; J2920; J3486; J3490; J7030; J7042; J7050; J7620-GY; J8540; Q9967

== ENCOUNTER 2022-06-08 07:13 | Emergency (ER) | payer MEDICARE ==
[~2022-06-08 07:13] MED LIST changes: +50% Dextrose in Water 50 ML Syringe IVPUSH ONE; -Sodium Chloride 0.9% 1,000 ML IV ONE
[2022-06-08 08:23] LABS: PTT,PARTIAL THROMBOPLSTIN TIME 29.3 SEC (22.0-34.0)
[2022-06-08 08:27] LABS: ANION GAP 13.6 mEq/L (7-13)
[2022-06-08] MEDS ORDERED: Ondansetron 4 MG/2 ML SDV IVPUSH ONE (08:38)
[2022-06-08] MEDS ORDERED: 50% Dextrose in Water 50 ML Syringe IVPUSH ONE ×4 (08:39→15:13)
[2022-06-08 09:03] LABS: AMPHETAMINES,URINE NEGATIVE (NEGATIVE); BARBITURATES,URINE NEGATIVE (NEGATIVE); BENZODIAZEPINE,URINE NEGATIVE (NEGATIVE); MDMA (ECSTASY), URINE NEGATIVE (NEGATIVE); METHADONE,URINE NEGATIVE (NEGATIVE); METHAMPHETAMINES,URINE NEGATIVE (NEGATIVE); OPIATES,URINE NEGATIVE (NEGATIVE); OXYCODONE,URINE NEGATIVE (NEGATIVE); PHENCYCLIDINE,URINE NEGATIVE (NEGATIVE); TCA,URINE NEGATIVE (NEGATIVE)
[2022-06-08] MEDS ORDERED: Metoclopramide 10 MG/2 ML SDV IVPUSH ONE (11:32)
[2022-06-08] MEDS ORDERED: 50% Dextrose in Water 50 ML Syringe ONE (13:37)
[2022-06-08] MEDS ORDERED: Octreotide 100 MCG/ML SDV SUBCUT ONE (13:57)
[2022-06-08] MEDS ORDERED: Dextrose 5%-0.9% NaCl 1,000 ML IV SCH (14:00)
== END 2022-06-08 15:53 ==
LOC: DL.ED 07:13
DX: R41.82 Altered mental status, unspecified (principal); E16.2 Hypoglycemia, unspecified; J44.9 Chronic obstructive pulmonary disease, unspecified; Z85.841 Personal history of malignant neoplasm of brain; Z85.118 Personal history of other malignant neoplasm of bronchus and lung
CPT/HCPCS: 36415; 70450; 71045; 80053; 80305; 80307; 81003; 82550; 82947; 83605; 83735; 84145; 84484; 85025; 85610; 85730; 86140; 87040; 93005; 93010; 96361; 96372; 96374; 96375; 96376; 99285; J2354; J2405; J2765; J7042; J3490

== ENCOUNTER 2023-05-20 19:29 | Emergency (ER) | payer MEDICARE | END 2023-05-20 20:30 | disposition left against medical advice (07) | LOC: DL.ED 19:29 | DX: Z53.21 Procedure and treatment not carried out due to patient leaving prior to being seen by health care provider (principal) ==